=== PATIENT | female | born 1940 | race Caucasian/White ===

== ENCOUNTER 2016-03-08 08:35 | Emergency (ER) | payer MEDICARE ==
[2016-03-08 09:20] VITALS: BP 134/32
--- NOTE | 2016-03-08 09:23 | RAD ---
INDICATION: LEFT wrist pain since this morning without proceeding injury. COMPARISON: None. TECHNIQUE: AP, lateral, and oblique views LEFT wrist. REPORT: Negative for fracture. Moderate scapholunate interval diastases most consistent with age indeterminate scapholunate ligament tear. Polyarticular osteoarthritis with including at the trapezium triquetral, scaphoid trapezium, and trapezium first metacarpal articulations moderate in severity. Osteoarthritis also evident at the first metacarpal phalangeal and interphalangeal joints. Vascular calcifications. Nonfocal soft tissue swelling. IMPRESSION: 1. Negative for fracture. 2. 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 3. Polyarticular Osteoarthritis.
[2016-03-08] MEDS ORDERED: HYDROcodone/ACETAMIN 5-325 MG* 1 TAB PO ONE (09:43)
--- NOTE | 2016-03-08 09:51 | UC ---
Hand/Wrist HPI - HPI Summary HPI Summary: left wrist pain x 3 days pain is sever , + swelling, limited ROM no know injury , but ? injury as she was playing with her dog - History Of Current Complaint Chief Complaint: UCUpperExtremity Stated Complaint: LEFT WRIST PAIN Time Seen by Provider: 03/08/16 08:52 Hx Obtained From: Patient, Family/Gaming Cashier Onset/Duration: Sudden Onset, Lasting Days - 3, Still Present Severity Initially: Moderate Severity Currently: Severe Character Of Pain: Aching Aggravating Factor(s): Movement, Lifting, Flexion, Extension Alleviating: Nothing Associated Signs And Symptoms: Positive: Swelling, Weakness. Negative: Redness , Bruising - Allergies/Home Medications Allergies/Adverse Reactions: Allergies Allergy/AdvReac Type Severity Reaction Status Date / Time No Known Allergies Allergy Verified 03/08/16 09:11 Home Medications: Home Medications Allopurinol TAB* [Zyloprim TAB*] 300 mg PO DAILY 03/08/16 [History Confirmed ] Amlodipine Besylate [Norvasc-] 5 mg PO DAILY 03/08/16 [History Confirmed ] Apixaban* [Eliquis*] 5 mg PO BID 03/08/16 [History Confirmed 03/08/16] Aspirin [Aspirin Dr] 81 mg PO DAILY 03/08/16 [History Confirmed 03/08/16] Atorvastatin* [Lipitor*] 40 mg PO DAILY 03/08/16 [History Confirmed 03/08/16] Hydroxyurea CAP* [Hydrea CAP*] 500 mg PO TID 03/08/16 [History Confirmed ] Levothyroxine TAB* [Synthroid TAB*] 150 mcg PO DAILY 03/08/16 [History Confirmed 03/08/16] Lisinopril [Zestril 10 MG-] 10 mg PO DAILY 03/08/16 [History Confirmed 03/08/16] Metoprolol Succinate [Toprol Xl] 12.5 mg PO DAILY 03/08/16 [History Confirmed ] PARoxetine HCL TAB* [Paxil TAB*] 40 mg PO DAILY 03/08/16 [History Confirmed ] busPIRone TAB* [Buspar TAB*] 5 mg PO TID 03/08/16 [History Confirmed 01/31/17] PMH/Surg Hx/FS Hx/Imm Hx Cardiovascular History Of: Reports: Cardiac Disorders - aortic stenosis, Hypertension - Surgical History Surgical History: Yes Surgery Procedure, Year, and Place: hip replacement-right at [facility] - Family History Known Family History: Negative: Diabetes - Social History Alcohol Use: None Substance Use Type: None Smoking Status (MU): Former Smoker Review of Systems Constitutional: Negative Skin: Negative Eyes: Negative ENT: Negative Respiratory: Negative Cardiovascular: Negative Musculoskeletal: Arthralgia - left wrist All Other Systems Reviewed And Are Negative: Yes Physical Exam Triage Information Reviewed: Yes Appearance: Pain Distress, Thin Vital Signs: Initial Vital Signs Temp 98.9 F 03/08/16 08:39 Pulse 64 03/08/16 08:39 Resp 30 03/08/16 08:39 BP 134/32 03/08/16 08:39 Vital Signs Reviewed: Yes Eyes: Positive: Conjunctiva Clear ENT: Positive: Normal ENT inspection, Hearing grossly normal, Pharynx normal Neck exam: Normal Respiratory: Positive: Chest non-tender, Lungs clear, Normal breath sounds Cardiovascular: Positive: RRR, No Murmur, Pulses Normal Musculoskeletal: Positive: Strength Limited @ - left wrist, ROM Limited @ - left wrist, Other: - left wrist : + swelling, mid wrist, + tenderness, limited ROM on flexion and extesion and supination Diagnostics - Laboratory Diagnostic Studies Completed/Ordered: REPORT left wrist xray : Negative for fracture. Moderate scapholunate interval diastases most consistent. with age indeterminate scapholunate ligament tear. Polyarticular osteoarthritis with. including at the trapezium triquetral, scaphoid trapezium, and trapezium first metacarpal. articulations moderate in severity. Osteoarthritis also evident at the first metacarpal. phalangeal and interphalangeal joints. Vascular calcifications. Nonfocal soft tissue. swelling. IMPRESSION: 1. Negative for fracture. 2. 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 3. Polyarticular Osteoarthritis. Hand/Wrist Course/Dx - Differential Dx/Diagnosis Provider Diagnoses: left wrist strain Discharge - Discharge Plan Condition: Stable Disposition: HOME Prescriptions: HYDROcodone/ACETAMIN 5-325 MG* [[place] 5-325 TAB*] 1 tab PO Q6H PRN #15 tab MDD 4 TABS DAILY PRN Reason: Pain Patient Education Materials: Wrist Injury (ED), Arthralgia (ED) Referrals: Rosalee Plunkett MD [Primary Care Provider] - Additional Instructions: xray REPORT: Negative for fracture. Moderate scapholunate interval diastases most consistent with age indeterminate scapholunate ligament tear. Polyarticular osteoarthritis with including at the trapezium triquetral, scaphoid trapezium, and trapezium first metacarpal articulations moderate in severity. Osteoarthritis also evident at the first metacarpal phalangeal and interphalangeal joints. Vascular calcifications. Nonfocal soft tissue swelling. IMPRESSION: 1. Negative for fracture. 2. 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 3. Polyarticular Osteoarthritis. cont. with rest, ice, wrist splint, hydrocodon as needed for pain referral to ortho in 2 days
== END 2016-03-08 10:04 | disposition home or self-care (01) ==
LOC: UCCORT 08:35
DX: S63.502A Unspecified sprain of left wrist, initial encounter (principal); I10 Essential (primary) hypertension; M19.042 Primary osteoarthritis, left hand; Z96.641 Presence of right artificial hip joint; Z87.891 Personal history of nicotine dependence; X58.XXXA Exposure to other specified factors, initial encounter; Y92.9 Unspecified place or not applicable; Z79.82 Long term (current) use of aspirin
CPT/HCPCS: 99213; G0463

== ENCOUNTER 2016-12-07 17:59 | Inpatient (IN) | payer MEDICARE ==
--- NOTE | 2016-12-07 19:53 | RAD ---
HISTORY: Shortness of breath COMPARISONS: None VIEWS: 4: Frontal dual-energy and lateral views of the chest. FINDINGS: CARDIOMEDIASTINAL SILHOUETTE: The cardiac silhouette is enlarged. The cardiomediastinal silhouette is otherwise normal. Annular calcifications are noted. A metallic stent is noted. ARACELY: The aracely are normal. PLEURA: The costophrenic angles are sharp. No pleural abnormalities are noted. LUNG PARENCHYMA: There is diffuse confluent alveolar opacification of the right lung field with patchy alveolar opacification of the left lung base. ABDOMEN: The upper abdomen is clear. There is no subphrenic gas. BONES AND SOFT TISSUES: No bone or soft tissue abnormalities are noted. OTHER: None. IMPRESSION: DIFFUSE MULTIFOCAL AIRSPACE DISEASE, GREATER ON THE RIGHT THAN ON THE LEFT. CARDIOMEGALY
[2016-12-07 20:06] LABS: Hematocrit 22 % (35-47); Hemoglobin 7.1 g/dl (12.0-16.0); Mean Corpuscular HGB Conc 32 g/dl (31-36); Mean Corpuscular Hemoglobin 28 pg (27-31); Mean Corpuscular Volume 89 fL (80-97); Mean Platelet Volume 8 um3 (7.4-10.4); Red Blood Count 2.52 10^6/ul (4.0-5.4); Red Cell Distribution Width 20 % (10.5-15); White Blood Count 19.3 10^3/ul (3.5-10.8)
[2016-12-07 20:21] LABS: Albumin 3.8 g/dL (3.2-5.2); BUN/Creatinine Ratio 29.9 (8-20); Calcium 9.5 mg/dL (8.6-10.3); EGFR African American 52.3 (>60); EGFR Non-African American 40.7 (>60); Globulin 3.3 g/dL (2-4); Potassium 3.7 mmol/L (3.5-5.0); Total Bilirubin 1.1 mg/dL (0.2-1.0); Total Protein 7.1 g/dL (6.4-8.9)
[2016-12-07] MEDS ORDERED: Furosemide IV* 10 MG/ML 2 ML VIAL (20 MG) IV SLOW PU ONE (20:54)
[2016-12-07] MEDS ORDERED: Furosemide IV* 10 MG/ML VIAL (40 MG) ONE (21:43)
[2016-12-07] MEDS ORDERED: Furosemide IV* 10 MG/ML VIAL (40 MG) IV SLOW PU ONE (21:45)
[2016-12-07 22:12] LABS: Troponin I 0.39 ng/mL (<0.04)
[2016-12-07] MEDS ORDERED: RUXOLITINIB 15 MG PO SCH (23:00)
--- NOTE | 2016-12-08 00:58 | HP ---
CC: Dr. Plunkett; Dr. Willian Betancourt HISTORY AND PHYSICAL: DATE OF ADMISSION: 12/07/16 PRIMARY CARE PHYSICIAN: Dr. Plunkett. CHIEF COMPLAINT: Shortness of breath. HISTORY OF PRESENT ILLNESS: Ms. Dunn is a 76-year-old female with a past medical history of hypertension, cognitive impairment, CVA, myeloproliferative disease followed by Dr. Betancourt, aortic stenosis status post aortic valve replacement in September 2016, unclear whether this is a mechanical or animal valve and osteoarthritis, who presents to the hospital with shortness of breath. History is mostly obtained from the daughter. The patient suffers from some underlying cognitive impairment and defers most questions to her daughter who is present and lives with her. The daughter states that she woke up this morning around 7 a.m. and the patient had said she had been up all night with hip pain. She states she gets this occasionally. The patient did not want to move and the daughter initially was going to call EMS; however, the patient refused. She had some Tylenol and some ice on her hip and went back to sleep. When she woke up a few hours later, the pain had resolved. She got up to go to get breakfast and she stated that she was having a lot of shortness of breath with exertion. She was feeling very fatigued. She laid down and went back to sleep for a few hours. When she woke up, apparently the shortness of breath was even worse. She said she had some mild back pain with inspiration. Daughter states that shortness of breath is new for her. She had some symptoms like this prior to her aortic valve replacement, but since then has been doing very well. Yesterday, she had no issues at all. She has had no recent fever, chills, cough, dysuria, nausea, vomiting, has been having good p.o. intake. The patient is on Jakafi for her myeloproliferative disorder and follows with Dr. Betancourt and her sheet metal mechanic she states is Dr. Jeff Zambrano. PAST MEDICAL HISTORY: Hypertension, aortic valve replacement in September 2016 at [facility], CVA with subsequent cognitive impairment, myeloproliferative disorder, on Jakafi, and osteoarthritis. PAST SURGICAL HISTORY: Right total hip replacement, aortic valve replacement, and back surgery. HOME MEDICATIONS: 1. Jakafi 15 mg by mouth 2 times daily. 2. Synthroid 150 mcg by mouth daily. 3. Atorvastatin 40 mg by mouth daily. 4. Aspirin 81 mg by mouth daily. 5. Apixaban 5 mg by mouth 3 times daily. 6. Norvasc 5 mg by mouth daily. 7. Allopurinol 300 mg by mouth daily. 8. Lisinopril 5 mg by mouth daily. 9. Paroxetine 30 mg by mouth daily. 10. Metoprolol succinate 12.5 mg by mouth daily. 11. Buspirone 5 mg by mouth 3 times daily. ALLERGIES: The patient has no known drug allergies. FAMILY HISTORY: Significant for mother with arthritis. SOCIAL HISTORY: The patient has distant tobacco use. No alcohol or illicit drug use. REVIEW OF SYSTEMS: A 12-point review of systems is negative except for that as noted in the HPI. PHYSICAL EXAMINATION GENERAL: The patient is an elderly female, lying in bed, in no apparent distress. VITAL SIGNS: On admission, temperature 98.9, heart rate of 64, respiratory rate of 22, O2 saturation 82% on room air, blood pressure 118/43. HEENT: Head: Normocephalic, atraumatic. Eyes: Pupils equal, round, and reactive to light and accommodation. Anicteric sclerae. ENT: Moist mucous membranes. No cervical adenopathy. LUNGS: Chest with coarse rales in bilateral lower lung fu. CARDIOVASCULAR: Regular rate and rhythm. S1 and S2 present. Systolic ejection murmur. I did not appreciate a diastolic murmur. I could not appreciate a mechanical S2. ABDOMEN: Soft, nontender, nondistended. Bowel sounds positive. EXTREMITIES: No cyanosis, clubbing or edema in the lower extremities. NEURO: The patient is alert and oriented. No focal neurological deficits. LABS AND DIAGNOSTICS: White blood cell count of 19.3, hemoglobin of 7.1, hematocrit of 22, platelets of 601. Sodium 132, potassium 3.7, chloride of 105 , carbon dioxide of 21, BUN of 38, creatinine of 1.27, glucose of 115, lactic acid of 1.4. Total bilirubin of 1.1, AST of 48, ALT of 14, alkaline phosphatase of 55. Troponin of 0.39. B-natriuretic peptide of 693. EKG personal review shows normal sinus rhythm, some mild LVH. Chest x-ray personal review shows diffuse multifocal airspace disease right greater than left. ASSESSMENT AND PLAN: Acute congestive heart failure exacerbation in a 76-year- old female with a past medical history of hypertension, aortic valve replacement , cerebrovascular accident, myeloproliferative disorder, osteoarthritis. 1. Acute congestive heart failure exacerbation. The patient seems fluid overloaded on exam and by labs and imaging. She has no history of congestive heart failure as far as I am aware of. We do not have any old echocardiograms here. Her BNP and troponin are both elevated. We will dose one time of 40 mg of IV Lasix in the emergency department, track her urine output. Will order an echocardiogram for tomorrow. Talked with Cardiology as well to consult in the AM. Continue her home beta-rigoberto and antihypertensive medications. We will try to track down an old echocardiogram from [facility] Carrasco, which her daughter states she has had since the valve was replaced. Strict I's and O's. 2. Anemia. The patient's hemoglobin is 7.1. This is lower than it has been in the past. The patient has a troponin elevation. I am going to opt to give her a unit of blood despite her fluid overload at this time. I can give additional Lasix after if she needs it. We will check a stool guaiac as well as the patient is on Eliquis. 3. Hypertension. Continue metoprolol, lisinopril, and Norvasc. 4. Myeloproliferative disorder. Platelets and white blood cells are elevated. White blood cell seemed to be may be slightly higher than her baseline. As noted above, we will just hold the patient's Jakafi for now. Oncology can determine if and when to restart this. 5. Hypothyroidism. Continue home Synthroid. 6. DVT prophylaxis. Eliquis. 7. Code status. The patient is a full code. TIME SPENT: Total time spent on this admission 50 minutes with over half the time spent [id number] with the patient in counseling and coordinating care. [id number]/CPS #: [id number] DENISE
[2016-12-08] MEDS: Apixaban* 5 MG TAB PO SCH ×3 (01:34→20:16)
[2016-12-08 05:52] LABS: Hematocrit 22 % (35-47); Hemoglobin 7.3 g/dl (12.0-16.0); Mean Corpuscular HGB Conc 33 g/dl (31-36); Mean Corpuscular Hemoglobin 29 pg (27-31); Mean Corpuscular Volume 87 fL (80-97); Mean Platelet Volume 8 um3 (7.4-10.4); Red Blood Count 2.51 10^6/ul (4.0-5.4); Red Cell Distribution Width 19 % (10.5-15); White Blood Count 13.7 10^3/ul (3.5-10.8)
[2016-12-08] MEDS: Levothyroxine TAB* 150 MCG TAB PO SCH (06:02)
[2016-12-08 06:09] LABS: BUN/Creatinine Ratio 26.1 (8-20); EGFR African American 49.2 (>60); EGFR Non-African American 38.3 (>60); Potassium 3.7 mmol/L (3.5-5.0)
[2016-12-08 06:18] LABS: Troponin I 0.54 ng/mL (<0.04)
[2016-12-08] MEDS ORDERED: amLODIPine TAB* 5 MG PO SCH (09:00)
[2016-12-08] MEDS ORDERED: Lisinopril TAB* 10 MG PO SCH (09:00)
--- NOTE | 2016-12-08 10:11 | ECHO ---
Patient: CARSON JACKSON Rec#: [id number] : 1940 Date: 12/08/2016 Age: 76y Height: 170.18 cm / 67.0 in Weight: 78.92 kg / 173.9 lbs Sex: F BSA: 1.91 Room#: 439 Admit Date#: 12/07/2016 Type: Inpatient Referring: JENNIFER WEAVER MD Reading: Shun Henry MD Oral Hygienist: Michelle KirkRDCS,RDMS CC: Rosalee Plunkett MD Transthoracic Echocardiogram Indication: CHF BP: 105/32 HR: 69 Rhythm: NSR Findings History: , AVR, CVA, myeloproliferative disease, HTN, murmur Technical Comments: The study quality is good. Completed 0845 Left Ventricle: The left ventricular chamber size is normal. Moderate concentric left ventricular hypertrophy is observed. There is increased basal septal hypertrophy noted without evidence of an increased gradient across the left ventricular outflow tract. Global left ventricular wall motion and contractility are within normal limits. The left ventricle appears hyperdynamic. The estimated ejection fraction is greater than 65%. Abnormal left ventricular diastolic function is observed. The left ventricular diastolic filling pattern is consistent with pseudonormalization. Left Atrium: The left atrium is severely dilated. Right Ventricle: The right ventricular chamber size and systolic function are within normal limits. Right Atrium: The right atrium is mildly dilated. Aortic Valve: There is mild aortic regurgitation. seems to be paravalvular. The mean gradient of the aortic valve is 37 mmHg. The aortic valve area, by peak velocities, is calculated at 1.2 cm2. The highest aortic valve velocity was obtained with the standard probe from the A5C view. A bio-prosthetic aortic valve is present. There are increased velocities across the LVOT and aortic valve and an increased mean gradient across the AV c/w the hyperdynamic state and anemia. The AV AccT of 72 ms is c/w normal prosthetic valve function. There is a paravalvular leak of the bio-prosthetic aortic valve. Mitral Valve: Severe mitral annular calcification present.which seems to restrict the mobility of the leaflets. The mitral valve leaflets are mildly thickened. There is mild to moderate mitral regurgitation. There is moderate mitral stenosis. Tricuspid Valve: The tricuspid valve leaflets are normal. There is trace to mild tricuspid regurgitation. No pulmonary hypertension is noted. Pulmonic Valve: The pulmonic valve appears normal. There is a trace pulmonic regurgitation. Pericardium: There is no significant pericardial effusion. Aorta: The aortic root appears normal. There is no dilatation of the aortic arch. Pulmonary Artery: The main pulmonary artery appears normal. Venous: The inferior vena cava appears normal in size. There is a greater than 50% respiratory change in the inferior vena cava dimension. Summary: There was not any prior study for comparison. Conclusions Moderate concentric left ventricular hypertrophy is observed. The left ventricle appears hyperdynamic. The estimated ejection fraction is greater than 65%. The left ventricular diastolic filling pattern is consistent with pseudonormalization. The left atrium is severely dilated. The right atrium is mildly dilated. A bio-prosthetic aortic valve is present. There are increased velocities across the LVOT and aortic valve and an increased mean gradient across the AV c/w the hyperdynamic state and anemia. The AV AccT of 72 ms is c/w normal prosthetic valve function. There is a paravalvular leak of the bio-prosthetic aortic valve. Severe mitral annular calcification present.which seems to restrict the mobility of the leaflets. There is mild to moderate mitral regurgitation. There is moderate mitral stenosis. There is trace to mild tricuspid regurgitation. Measurements Name Value Normal Range RVIDd (AP) 2D 2.9 cm (0.9 - 2.6) RVDdMajor (2D) 3.1 cm (2.2 - 4.4) RAd ISD 4CH 5.8 cm (3.4 - 4.9) RA (A4C)W 3.5 cm (2.9 - 4.6) IVSd (2D) 1.6 cm (0.6 - 1) LVPWd (2D) 1.6 cm (0.6 - 1) LVIDd (2D) 4.4 cm (3.6 - 5.4) LVIDs (2D) 2.6 cm - LV FS (2D) 41 % (25 - 45) Aortic Annulus 2 cm (1.4 - 2.6) Ao root diameter (2D) 3.1 cm (2.1 - 3.5) Ascending Ao 3.2 cm (2.1 - 3.4) Aortic arch 2.5 cm (1.8 - 3.4) LA dimension (AP) 2D 4.8 cm (2.3 - 3.8) LAd ISD 4CH 6.9 cm (2.9 - 5.3) LA ISD 4CH W 5.8 cm (2.5 - 4.5) Name Value Normal Range LA ESV SP 4CH (A/L) 166.48 ml - LA ESV SP 2CH (A/L) 132.26 ml - LA ESV BP (A/L) 151.2 ml - LA ESV BP (A/L) index 79 ml/m2 - LA ESV SP 4CH (MOD) 155.41 ml - LA ESV SP 2CH (MOD) 123.69 ml - Name Value Normal Range MV E-wave Vmax 2 m/sec - MV deceleration time 337 msec - MV A-wave Vmax 1.2 m/sec - MV E:A ratio 1.7 ratio - LV lateral e' Vmax 0.06 m/sec - LV E:e' lateral ratio 33.4 ratio - Name Value Normal Range AV Vmax 3.9 m/sec - AV VTI 93 cm - AV peak gradient 61 mmHg - AV mean gradient 37 mmHg - LVOT diameter 1.9 cm - LVOT Vmax 1.7 m/sec - LVOT VTI 41.7 cm - LVOT peak gradient 12 mmHg - LVOT mean gradient 6.8 mmHg - SV LVOT 111.28 ml - SPENCER (continuity Vmax) 1.2 cm2 - SPENCER (continuity VTI) 1.3 cm2 - Name Value Normal Range MV Vmax 2 m/sec - MV VTI 74.5 cm - MV peak gradient 16 mmHg - MV mean gradient 6.8 mmHg - MV PHT 132 msec - MVA (PHT) 1.7 cm2 - MVA (continuity VTI) 1.7 cm2 - Name Value Normal Range TR Vmax 2.2 m/sec - TR peak gradient 19 mmHg - RAP 3 mmHg - RVSP 22 mmHg - IVC diameter 1.9 cm - Name Value Normal Range PV Vmax 1 m/sec - PV peak gradient 4 mmHg -
[2016-12-08] MEDS ORDERED: Furosemide IV* 10 MG/ML VIAL (40 MG) IV ONE (10:47)
[2016-12-08] MEDS: Metoprolol Succinate XL TAB* 25 MG PO SCH (10:56)
[2016-12-08] MEDS: PARoxetine HCL TAB* 10 MG PO SCH (10:57)
[2016-12-08] MEDS: Atorvastatin* 40 MG TAB PO SCH (10:59)
[2016-12-08] MEDS: Aspirin EC Low Dose* 81 MG TAB.EC PO SCH (10:59)
[2016-12-08] MEDS: Allopurinol TAB* 300 MG PO SCH (11:00)
[2016-12-08] MEDS: busPIRone TAB* 5 MG PO SCH ×2 (11:01→20:17)
[2016-12-08] MEDS ORDERED: Azithromycin IV(*) 500 MG in NS 0.9% 250 ML* 250 ML IVPB SCH (11:30)
[2016-12-08] MEDS ORDERED: Potassium Chloride LIQUID* 20 MEQ PACKET PO ONE (11:30)
[2016-12-08] MEDS: cefTRIAXone VIAL(*) 1,000 MG in NS 0.9% 50 ML* 50 ML IVPB SCH (11:54)
--- NOTE | 2016-12-08 13:20 | PN ---
Subjective Date of Service: 12/08/16 Interval History: Ms. Dunn states that she is feeling relatively well. She does feel that her breathing is a bit labored. She denies other complaint including chest pain, nausea, or abdominal pain. Objective Active Medications: Acetaminophen (Tylenol Tab*) 650 mg PO Q4H PRN Allopurinol (Zyloprim Tab*) 300 mg PO DAILY MELONY Apixaban (Eliquis*) 5 mg PO BID MELONY Aspirin (Aspirin Ec Low Dose*) 81 mg PO DAILY MELONY Atorvastatin Calcium (Lipitor*) 40 mg PO DAILY MELONY Buspirone HCl (Buspar Tab*) 5 mg PO TID MELONY Ceftriaxone Sodium 1,000 mg/ (Sodium Chloride) 50 mls @ 200 mls/hr IVPB Q24H MELONY Azithromycin 500 mg/ Sodium (Chloride) 250 mls @ 250 mls/hr IVPB Q24H MELONY Levothyroxine Sodium (Synthroid Tab*) 150 mcg PO DAILY@0600 MELONY Metoprolol Succinate (Toprol Xl Tab*) 12.5 mg PO DAILY MELONY Paroxetine HCl (Paxil Tab*) 30 mg PO DAILY [facility] Vital Signs: Temp Pulse Resp BP Pulse Ox 98 F 60 30 128/58 93 12/08/16 08:34 12/08/16 08:34 12/08/16 08:34 12/08/16 08:34 12/08/16 08:34 Oxygen Devices in Use Now: Nasal Cannula Appearance: Female lying in bed in NAD Eyes: No Scleral Icterus Ears/Nose/Mouth/Throat: Mucous Membranes Moist Neck: Trachea Midline Respiratory: Symmetrical Chest Expansion and Respiratory Effort, Clear to Auscultation Cardiovascular: NL Sounds; No Murmurs; No JVD, No Edema Abdominal: NL Sounds; No Tenderness; No Distention Lymphatic: No Cervical Adenopathy Extremities: No Edema Skin: No Rash or Ulcers Neurological: Alert and Oriented x 3, NL Muscle Strength and Tone Result Diagrams: 12/08/16 05:28 12/08/16 05:28 Assess/Plan/Problems-Billing Assessment: Ms. Dunn is a 76 yo female with a PMH of CVA with cognitive impairment, myeloproliferative disorder follow by Dr. Betancourt, and aortic valve replacement 2016 who was admitted on 12/07/16 with SOB with concern for CHF, anemia, and possible pneumonia. - Patient Problems (1) CHF (congestive heart failure) Comment: - Appreciate cards consult. - Echo shows hyperdynamic small LV, suspect heart function impaired with tachycardia due to anemia. Aortic valve functioning appropriately. - Plan for lasix with 2 units PRBC now. (2) H/O aortic valve replacement Comment: - Appreciate cards consult. - Echo confirms that valve is functioning properly. (3) Anemia Comment: - New worsening anemia. - Dr. Betancourt consulted. Stool occult blood pending. No overt evidence of bleeding. - Plan for 2 units PRBC now. (4) Pneumonia Comment: - Patient with SOB, leukocytosis and concern for patchy airspace disease on cxray. Though she has had leukocytosis in the past with hx of myeloproliferative disorder, given constellation of symptoms, plan to treat for pneumonia with ceftriaxone and azithromycin. - Procalcitonin 1.0, CRP pending. Check strep pneumo and legionella urine antigens. (5) Myeloproliferative disorder Comment: - Plan for Hematology consult. (6) CVA (cerebral vascular accident) Comment: - With cognitive impairment. Continue supportive care. (7) DVT prophylaxis Comment: - SCDs with anemia. (8) Full code status Status and Disposition: Switch from OBV to inpatient. Anticipate discharge to home when medically stable.
[2016-12-08 13:26] LABS: Comments Flag Yes; Corrected Retic Count 2.1 % (0.5-1.5); Immature Retic Fraction 0.61
[2016-12-08 13:51] LABS: C Reactive Protein 112.73 mg/L (< 5.00)
[2016-12-08 13:53] LABS: Iron 50 ug/dL (50-212); Total Iron Binding Capacity 293 mcg/dL (250-450); Transferrin 209 mg/dL (203-362)
[2016-12-08 14:14] LABS: Ferritin > 1500.0 ng/mL (11-307)
--- NOTE | 2016-12-08 14:37 | CONS ---
CC: Dr. Plunkett; Dr. Amadeo Aguilar; Dr. Betancourt; Dr. Henry CARDIOLOGY CONSULTATION REPORT: DATE OF CONSULT: 12/08/16 REASON FOR EVALUATION: Heart failure, troponin elevation. HISTORY OF PRESENT ILLNESS: History was obtained from the chart and Dr. Aguilar and Jelena Kong NP. The patient is a poor historian due to memory impairment. The patient was seen with her daughter at the bedside, maria isabel Porras, history was obtained from her as well. This is a very pleasant 76-year- old woman, who has a history of paroxysmal atrial flutter, CVA, myeloproliferative disorder, hypertension, [id number] mitral stenosis, aortic stenosis, status post TAVR in September of 2016 at [facility], who is also limited by musculoskeletal issues including arthritis of the knees and right hip discomfort, status post right hip replacement. After the TAVR, she was able to go to live with her daughter, has been walking from her bedroom to the bathroom and kitchen without shortness of breath and actually had improved somewhat. Over the last couple of days, she has been more short of breath. Daughter saw her yesterday and said that the patient reported she had a bad night and was more short of breath and had pain in her hip. The patient received some Tylenol and rested for a while and then had relief of her pain and seemed somewhat less short of breath. She got up to move around and was severely short of breath with exertion in the house and was brought to the emergency room. She denies fevers, chills, or sweats. She did have a cough with some red-tinged sputum yesterday. No diarrhea, no dysuria. She denies any nausea, vomiting, or weight loss. She was found to be more severely anemic and was transfused a unit of blood last night; however, she remains anemic today. She also had an elevated BNP at 693 yesterday and some elevated troponins of 0.47, 0.52, 0.54, and 0.57. She denies orthopnea, but gets short of breath with minimal exertion. PAST MEDICAL HISTORY: Includes aortic stenosis, status post TAVR in September of 2016. According to Dr. Aguilar, she had some elevated gradient across the valve at 3.2 m/sec, which was detected in October and what was considered mild -to- moderate MS. She also has a history of hospitalization in November of 2015 in [place] for atrial flutter and CVA and non-ST elevation GA. She was started on anticoagulation at that time. She has a history of hypertension. She has mild cognitive dysfunction and memory impairment after her CVA, myeloproliferative disorder, systolic and diastolic heart failure, and anemia. She has a history of tobacco use, discontinued 4 years ago. Denies asthma or emphysema. PAST SURGICAL HISTORY: Includes right hip replacement approximately 10 years ago. MEDICATIONS: As an outpatient include: 1. Jakafi 15 mg b.i.d. 2. Synthroid 150 mcg a day. 3. Atorvastatin 40 mg a day. 4. Aspirin 81 mg a day. 5. Apixaban 5 mg b.i.d. 6. Amlodipine 5 mg daily. 7. Allopurinol 300 mg a day. 8. Lisinopril 5 mg a day. 9. Paroxetine 30 mg a day. 10. Metoprolol succinate 12.5 mg a day. 11. BuSpar 5 mg t.i.d. As an inpatient, she is on those medications plus: 1. Azithromycin 500 mg q.24. 2. Ceftriaxone 1000 mg q.24. ALLERGIES: She has no known drug allergies. SOCIAL HISTORY: She is . Lives with her daughter. She has 3 children. 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 She denies current tobacco use or alcohol use. She has occasional coffee and about 1 cola a day. REVIEW OF SYSTEMS: Review of systems x12 was negative except as above. PHYSICAL EXAM: She is a well-developed, overweight female, in no apparent distress. Blood pressure 128/58, temperature 98, pulse of 60, O2 sat 93% on 3 L nasal cannula. Weighs 183 pounds. Negative 588 on I's and O's compared to yesterday. JVD of approximately 14 cm with hepatojugular reflux. Carotids 2+. No cervical adenopathy or thyromegaly. Cardiac Exam: S1, S2 with a 3/6 systolic ejection murmur at the base radiating across the precordium. Chest: Rales about a third of the way up bilaterally. Abdomen: Bowel sounds present, nontender. Femoral pulses intact without bruits. Distal pulses diminished but present. No significant edema. Motor strength 5/5 bilaterally except for the right lower extremity. She was kind of restricted because of hip discomfort on the right side. oriented to month and year. DIAGNOSTIC STUDIES/LAB DATA: Include sodium 134, potassium of 3.7, BUN of 35, creatinine of 1.34. White count of 13.7 down from 19 yesterday; hemoglobin of 7.3, up from 7.1 yesterday; platelet count of 488; MCV of 87. EKG: Sinus rhythm at 60 with first-degree AV block and minor nonspecific ST changes. No previous for comparison. Chest x-ray report revealed diffuse multifocal airspace disease greater on the right than the left, cardiomegaly. Echocardiogram was performed today, which revealed moderate concentric LVH with basal thickening, no evidence of outflow tract obstruction, hyperdynamic LV function greater than 65, mild increase in LVOT velocity of 1.7, reason possibility of potential from mild dynamic outflow tract obstruction. There is increased velocity across the aortic valve and the LVOT consistent with hyperdynamic state and anemia. The AV acceleration time is 72 milliseconds, which was consistent with normal prosthetic valve function that was paravalvular leak of the bioprosthetic aortic valve. There was severe mitral annular calcification compromised with leaflet excursion. There was mild-to- moderate MR and moderate mitral stenosis with a mean gradient of 6.8. There is [id number] TR, trace PI, and the peak velocity across the aortic valve was 3.9 m/sec with mean gradient at [address] Aguilar. The peak velocity was 3.2 m/sec with mean gradient at 22 back in October. IMPRESSION AND PLAN: My impression is that Ms. Dunn is a medically complicated woman, who has moderate valvular disease, severe anemia, hypertension, mild increase in her outflow tract, and congestive heart failure, probably on the basis of high-output failure, anemia, and systolic and diastolic dysfunction. She also has a history of paroxysmal atrial arrhythmias and cerebrovascular accident. I suspect that the severe anemia has compromised her with high-output failure and increased gradients across the mitral and aortic valves. For the time being, I recommend the following as discussed with Jelena Kong NP. Recommended gentle diuresis. We try to transfuse her to increase her RBCs and oxygen carrying capacity. Would avoid after load-reducing agents and hold her amlodipine and lisinopril for now. We would cautiously continue her metoprolol and consider advancing it as needed to control her blood pressure watching for bradycardia. Would continue anticoagulation unless there is a contraindication due to bleeding. She is at high risk for recurrent cardioembolic events given her high CHAD2- VASc score, history of cerebrovascular accident and history of atrial flutter. Would consider treating for pulmonary infection given the chest x-ray appearance. Would avoid excessive dehydration when she is euvolemic given the potential for hyperdynamic outflow tract obstruction. She has mild elevation in troponins, probably due to demand in the setting of severe anemia. Dr. Aguilar reports that she had no significant obstructive coronary disease on previous evaluation earlier this year prior to transcatheter aortic valve replacement. We will try to maintain her potassium over 4 to decrease likelihood of recurrent atrial arrhythmias. If she does have recurrent atrial arrhythmias, would consider possibility of adding an antiarrhythmic, perhaps amiodarone. Would avoid caffeine. Would consider consulting with Dr. Betancourt for the management of her anemia and myeloproliferative disorder. We will check TSH given her bradycardia and tendency towards atrial arrhythmias. [id number]/[facility] #: [id number] discussed with Dr. Betancourt, Dr. Nathan, and Jelena Kong. [facility] 12[facility]08.16 [facility]
--- NOTE | 2016-12-08 19:13 | PN ---
Progress Note - Progress Note Date of Service: 12/08/16 Note: Primary nurse called regarding patient complaint of chest pain. Patient assessed and states that she does have mild chest discomfort. She reports that her breathing feels labored. She does not feel short of breath and her lungs are CTAB. Plan to check EKG, chest xray, and troponins.
--- NOTE | 2016-12-08 19:25 | RAD ---
HISTORY: Chest pain, shortness of breath COMPARISONS: December 07, 2016 VIEWS: 1: frontal portable view of the chest at 7:07 PM FINDINGS: LINES AND TUBES: None. CARDIOMEDIASTINAL SILHOUETTE: The cardiac silhouette is enlarged. The cardiomediastinal silhouette is otherwise normal for portable technique. A stent is noted overlying the heart. PLEURA: The costophrenic angles are sharp. No pleural abnormalities are noted. LUNG PARENCHYMA: There is persistent patchy alveolar opacification throughout the right lung and to lesser extent of the left lower lung ABDOMEN: The upper abdomen is clear. There is no subphrenic gas. BONES AND SOFT TISSUES: No bone or soft tissue abnormalities are noted. IMPRESSION: PERSISTENT, RIGHT GREATER THAN LEFT MULTIFOCAL AIRSPACE DISEASE. CARDIOMEGALY
[2016-12-08] MEDS: Acetaminophen TAB* 325 MG PO PRN (20:15)
[2016-12-08] MEDS: Azithromycin IV(*) 500 MG in NS 0.9% 250 ML* 250 ML IVPB SCH (21:40)
[2016-12-09] MEDS: Levothyroxine TAB* 150 MCG TAB PO SCH (05:16)
[2016-12-09 05:35] LABS: Comments Flag Yes; Hematocrit 24 % (35-47); Hemoglobin 7.9 g/dl (12.0-16.0); Mean Corpuscular HGB Conc 33 g/dl (31-36); Mean Corpuscular Hemoglobin 29 pg (27-31); Mean Corpuscular Volume 87 fL (80-97); Mean Platelet Volume 8 um3 (7.4-10.4); Red Blood Count 2.76 10^6/ul (4.0-5.4); Red Cell Distribution Width 18 % (10.5-15); White Blood Count 14.8 10^3/ul (3.5-10.8)
[2016-12-09 06:10] LABS: Troponin I 0.45 ng/mL (<0.04)
[2016-12-09] MEDS: busPIRone TAB* 5 MG PO SCH ×3 (07:32→18:08)
[2016-12-09] MEDS: PARoxetine HCL TAB* 10 MG PO SCH (08:36)
[2016-12-09] MEDS: Allopurinol TAB* 300 MG PO SCH (08:37)
[2016-12-09] MEDS: Atorvastatin* 40 MG TAB PO SCH (08:37)
[2016-12-09] MEDS: Aspirin EC Low Dose* 81 MG TAB.EC PO SCH (08:37)
[2016-12-09] MEDS: Metoprolol Succinate XL TAB* 25 MG PO SCH (08:37)
[2016-12-09] MEDS: Apixaban* 5 MG TAB PO SCH (08:42)
[2016-12-09] MEDS: cefTRIAXone VIAL(*) 1,000 MG in NS 0.9% 50 ML* 50 ML IVPB SCH (11:48)
--- NOTE | 2016-12-09 14:23 | PN ---
Progress Note - Progress Note Date of Service: 12/09/16 SOAP: Subjective: []History from daughter with rapid onset of SOB. Patient has very little memory but today is without complaints. She is not in pain. Does report SOB and chest pain when moves. No fevers. Acetaminophen (Tylenol Tab*) 650 mg PO Q4H PRN PRN Reason: FEVER/PAIN Last Admin: 12/08/16 20:15 Dose: 650 mg Allopurinol (Zyloprim Tab*) 300 mg PO DAILY [facility] Last Admin: 12/09/16 08:37 Dose: 300 mg Aspirin (Aspirin Ec Low Dose*) 81 mg PO DAILY [facility] Last Admin: 12/09/16 08:37 Dose: 81 mg Atorvastatin Calcium (Lipitor*) 40 mg PO DAILY [facility] Last Admin: 12/09/16 08:37 Dose: 40 mg Buspirone HCl (Buspar Tab*) 5 mg PO TID [facility] Last Admin: 12/09/16 08:37 Dose: 5 mg Ceftriaxone Sodium 1,000 mg/ (Sodium Chloride) 50 mls @ 200 mls/hr IVPB Q24H [facility] Last Admin: 12/09/16 11:48 Dose: 200 mls/hr Azithromycin 500 mg/ Sodium (Chloride) 250 mls @ 250 mls/hr IVPB 2100 [facility] Last Admin: 12/08/16 21:40 Dose: 250 mls/hr Levothyroxine Sodium (Synthroid Tab*) 150 mcg PO DAILY@0600 [facility] Last Admin: 12/09/16 05:16 Dose: 150 mcg Metoprolol Succinate (Toprol Xl Tab*) 12.5 mg PO DAILY [facility] Last Admin: 12/09/16 08:37 Dose: 12.5 mg Paroxetine HCl (Paxil Tab*) 30 mg PO DAILY [facility] Last Admin: 12/09/16 08:36 Dose: 30 mg Objective: [] Vital Signs Temp Pulse Resp BP Pulse Ox 98.6 F 56 20 110/36 96 12/09/16 10:57 12/09/16 10:57 12/09/16 10:57 12/09/16 11:52 12/09/16 10:57 HEENT - conjunctiva pale. Lungs CTA She has slight systolic murmur, S1S2 Abd - no palpable spleen. Non tender, non distended. 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 She has increased LDH and schystocytes on her blood film. I suspect anemia is multifactorial. The Jakafi has been contributing and after discussion with Dr. 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 Cannot rule out acute blood loss from bleeding on Eliquis. She is symptomatic with chest pain and demand based rise in troponin. Discussion with Dr. Henry, the hemolysis across valve is exacerbated by the anemia itself and may improve with transfusions. Plan: []1. Agree with transfustion to Hgb > 9.0 a degree of anemia she has tolerated in the past. 2. Hold Jakafi 3. Will continue to follow LDH and retic count daily. 4. Hope is that combination of stopping Jakafi and improved hemodynamics with transfusion yield a positive feedback cycle. 5. Folic acid 1 gm daily 6. Hold Eliquis and check stool guiac for blood loss.
--- NOTE | 2016-12-09 15:32 | PN ---
Subjective Date of Service: 12/09/16 Interval History: Ms. Dunn reports some right sided hip pain today which she reports is chronic. She also confirms that its a bit difficult to breathe deeply. She denies other complaint including chest pain, nausea, or abdominal pain. She is tolerating oral intake well. Objective Active Medications: Acetaminophen (Tylenol Tab*) 650 mg PO Q4H PRN Allopurinol (Zyloprim Tab*) 300 mg PO DAILY [facility] Aspirin (Aspirin Ec Low Dose*) 81 mg PO DAILY [facility] Atorvastatin Calcium (Lipitor*) 40 mg PO DAILY [facility] Buspirone HCl (Buspar Tab*) 5 mg PO TID [facility] Ceftriaxone Sodium 1,000 mg/ (Sodium Chloride) 50 mls @ 200 mls/hr IVPB Q24H [facility] Azithromycin 500 mg/ Sodium (Chloride) 250 mls @ 250 mls/hr IVPB 2100 [facility] Levothyroxine Sodium (Synthroid Tab*) 150 mcg PO DAILY@0600 [facility] Metoprolol Succinate (Toprol Xl Tab*) 12.5 mg PO DAILY [facility] Paroxetine HCl (Paxil Tab*) 30 mg PO DAILY [facility] Vital Signs 12/08/16 12/08/16 12/08/16 15:43 17:25 18:20 Temperature 98.4 F 99.6 F 99.0 F Pulse Rate 63 72 65 Respiratory 20 32 36 Rate Blood Pressure 107/40 102/36 103/30 (mmHg) O2 Sat by Pulse 96 93 96 Oximetry 12/08/16 12/08/16 12/08/16 18:54 18:55 20:00 Temperature 98.1 F Pulse Rate 65 Respiratory 28 26 Rate Blood Pressure 90/30 110/50 (mmHg) O2 Sat by Pulse 97 Oximetry 12/08/16 12/08/16 12/09/16 23:29 23:30 00:17 Temperature 98.5 F Pulse Rate 57 Respiratory 16 23 Rate Blood Pressure 108/58 (mmHg) O2 Sat by Pulse 96 Oximetry 12/09/16 12/09/16 12/09/16 03:39 04:00 04:07 Temperature 98.9 F Pulse Rate 60 Respiratory 16 22 Rate Blood Pressure 108/41 (mmHg) O2 Sat by Pulse 88 92 Oximetry 12/09/16 12/09/16 12/09/16 07:51 08:00 09:45 Temperature 98.1 F 97.7 F Pulse Rate 54 54 Respiratory 22 28 24 Rate Blood Pressure 85/43 98/37 (mmHg) O2 Sat by Pulse 98 96 Oximetry 12/09/16 12/09/16 12/09/16 10:10 10:57 11:52 Temperature 98.7 F 98.6 F Pulse Rate 55 56 Respiratory 32 20 Rate Blood Pressure 108/35 92/33 110/36 (mmHg) O2 Sat by Pulse 91 96 Oximetry Oxygen Devices in Use Now: Nasal Cannula Appearance: Female lying in bed in NAD Eyes: No Scleral Icterus Ears/Nose/Mouth/Throat: Mucous Membranes Moist Neck: Trachea Midline Respiratory: Symmetrical Chest Expansion and Respiratory Effort, - - Rhonchi in bases R > L Cardiovascular: NL Sounds; No Murmurs; No JVD, No Edema Extremities: No Edema Skin: No Rash or Ulcers Neurological: NL Muscle Strength and Tone, - - Alert and appropriate, but very poor short term memory Nutrition: Taking PO's Result Diagrams: 12/09/16 04:56 12/08/16 05:28 Microbiology and Other Data: Microbiology 12/08/16 22:31 Transfusion Reaction Culture - Preliminary Blood Bag Culture Under Incubation Transfusion Reaction Gram Stain - Final 12/09/16 08:30 Stool Occult Blood ([facility]) - Final Stool 12/08/16 18:00 Legionella Urinary Antigen - Final Urine Negative Legionella Streptococcus pneumoniae Ag Screen - Final Negative S. pneumo Antigen Assess/Plan/Problems-Billing Assessment: Ms. Dunn is a 76 yo female with a PMH of CVA with cognitive impairment, myeloproliferative disorder follow by Dr. Betancourt, and aortic valve replacement 2016 who was admitted on 12/07/16 with SOB with concern for CHF, anemia, and possible pneumonia. - Patient Problems (1) CHF (congestive heart failure) Comment: - Appreciate cards consult. - Echo shows hyperdynamic small LV. Aortic valve functioning appropriately. - Appears euvolemic at this point, monitor closely with need for PRBC. - Suspect that anemia is contributing to hyperdynamic heart function with increased gradient across the valve which may actually worsen hemolytic anemia. - Continue low dose metoprolol. (2) H/O aortic valve replacement Comment: - Appreciate cards consult. - Echo confirms that valve is functioning properly. (3) Anemia Comment: - Hgb ~7 despite 3 units PRBC. - Likely multifactorial and should improve with holding of jakafi. Question if there is component of hemolysis with increased gradient across aortic valve, should actually improve with correction of anemia as heart becomes less hyperdynamic. No evidence of bleeding, plan to hold eliquis and start heparin IV. Appreciate hematology consult. (4) Pneumonia Comment: - Patient with SOB, leukocytosis and concern for patchy airspace disease on cxray. Though she has had leukocytosis in the past with hx of myeloproliferative disorder, given constellation of symptoms, plan to treat for pneumonia with ceftriaxone and azithromycin. - Procalcitonin 1.0, CRP 112. Strep pneumo and legionella urine antigens negative. (5) Myeloproliferative disorder Comment: - Appreciate Hematology consult. - Hold jakafi, anticipate this will improve anemia. (6) CVA (cerebral vascular accident) Comment: - With cognitive impairment. Continue supportive care. (7) DVT prophylaxis Comment: - SCDs with anemia. (8) Full code status Status and Disposition: Switch from OBV to inpatient. Anticipate discharge to home when medically stable.
[2016-12-09] MEDS ORDERED: Potassium Chlor TAB* 20 MEQ TAB.ER PO ONE (16:35)
[2016-12-09 16:54] LABS: Magnesium 1.6 mg/dL (1.9-2.7)
[2016-12-09] MEDS ORDERED: Heparin VIAL(*) 5000 UNITS/ML VIAL (FIVE THOUSAND) IV SCH (18:00)
[2016-12-09] MEDS ORDERED: Heparin DRIP 25,000 UNITS(*) 25,000 UNITS/500 ML BAG IV SCH (18:00)
--- NOTE | 2016-12-09 19:18 | RAD ---
HISTORY: Right hip pain COMPARISONS: None VIEWS: 3, Frontal view of the pelvis with frontal and frog-leg views of the right hip FINDINGS: BONE DENSITY: Normal. BONES: The patient is status post right hip arthroplasty. There is no hardware failure or osteolysis. JOINTS: The patient is status post right hip arthroplasty. There is mild osteoarthritis of left hip and SI joints. ALIGNMENT: There is no dislocation. SOFT TISSUES: Unremarkable. OTHER FINDINGS: Degenerative changes are noted of the spine IMPRESSION: STATUS POST RIGHT HIP ARTHROPLASTY
[2016-12-09] MEDS: Heparin DRIP 25,000 UNITS(*) 25,000 UNITS/500 ML BAG IV SCH (21:19)
[2016-12-09] MEDS: Azithromycin IV(*) 500 MG in NS 0.9% 250 ML* 250 ML IVPB SCH (21:32)
[2016-12-10] MEDS: busPIRone TAB* 5 MG PO SCH ×4 (00:35→21:07)
[2016-12-10] MEDS: Acetaminophen TAB* 325 MG PO PRN (00:35)
[2016-12-10 05:47] LABS: Hematocrit 31 % (35-47); Hemoglobin 10.5 g/dl (12.0-16.0); Mean Corpuscular HGB Conc 34 g/dl (31-36); Mean Corpuscular Hemoglobin 29 pg (27-31); Mean Corpuscular Volume 87 fL (80-97); Mean Platelet Volume 8 um3 (7.4-10.4); Red Blood Count 3.58 10^6/ul (4.0-5.4); Red Cell Distribution Width 18 % (10.5-15); White Blood Count 13.6 10^3/ul (3.5-10.8)
[2016-12-10 05:48] LABS: Add Diff/Slide Review? Slide Review Added; Comments Flag Yes
[2016-12-10 06:00] LABS: Blood Urea Nitrogen 36 mg/dL (6-24)
[2016-12-10] MEDS: Levothyroxine TAB* 150 MCG TAB PO SCH (06:05)
[2016-12-10] MEDS: Metoprolol Succinate XL TAB* 25 MG PO SCH (10:09)
[2016-12-10] MEDS: Aspirin EC Low Dose* 81 MG TAB.EC PO SCH (10:15)
[2016-12-10] MEDS: Allopurinol TAB* 300 MG PO SCH (10:15)
[2016-12-10] MEDS: Atorvastatin* 40 MG TAB PO SCH (10:15)
[2016-12-10] MEDS: PARoxetine HCL TAB* 10 MG PO SCH (10:15)
[2016-12-10] MEDS: cefTRIAXone VIAL(*) 1,000 MG in NS 0.9% 50 ML* 50 ML IVPB SCH (10:18)
--- NOTE | 2016-12-10 10:27 | PN ---
Subjective Date of Service: 12/10/16 Interval History: Ms. Dunn states that she is feeling pretty well today other than feeling tired. She denies chest pain, SOB, nausea, or abdominal pain. Objective Active Medications: Acetaminophen (Tylenol Tab*) 650 mg PO Q4H PRN Allopurinol (Zyloprim Tab*) 300 mg PO DAILY [facility] Aspirin (Aspirin Ec Low Dose*) 81 mg PO DAILY [facility] Atorvastatin Calcium (Lipitor*) 40 mg PO DAILY [facility] Buspirone HCl (Buspar Tab*) 5 mg PO TID [facility] Heparin Sodium (Porcine) (Heparin Vial(*)) 0 units IV .PER PROTOCOL [facility] Ceftriaxone Sodium 1,000 mg/ (Sodium Chloride) 50 mls @ 200 mls/hr IVPB Q24H [facility] Azithromycin 500 mg/ Sodium (Chloride) 250 mls @ 250 mls/hr IVPB 2100 [facility] Heparin Sodium/Dextrose (Heparin Drip 25,000 Units(*)) 25,000 units in 500 mls @ 0 mls/hr IV .NO INITIAL BOLUS [facility]; As Directed Levothyroxine Sodium (Synthroid Tab*) 150 mcg PO DAILY@0600 [facility] Metoprolol Succinate (Toprol Xl Tab*) 12.5 mg PO DAILY [facility] Paroxetine HCl (Paxil Tab*) 30 mg PO DAILY [facility] Vital Signs: Temp Pulse Resp BP Pulse Ox 97.7 F 47 16 97/34 95 12/10/16 08:02 12/10/16 08:02 12/10/16 08:02 12/10/16 08:02 12/10/16 08:02 Oxygen Devices in Use Now: Nasal Cannula Appearance: Elderly female lying in bed in NAD Eyes: No Scleral Icterus Ears/Nose/Mouth/Throat: Mucous Membranes Moist Neck: NL Appearance and Movements; NL JVP Respiratory: Symmetrical Chest Expansion and Respiratory Effort, Clear to Auscultation Cardiovascular: NL Sounds; No Murmurs; No JVD, No Edema Abdominal: NL Sounds; No Tenderness; No Distention Lymphatic: No Cervical Adenopathy Extremities: No Edema Skin: No Rash or Ulcers Neurological: Alert and Oriented x 3, NL Muscle Strength and Tone Nutrition: Taking PO's Result Diagrams: 12/10/16 05:40 12/10/16 05:40 Microbiology and Other Data: Microbiology 12/08/16 22:31 Transfusion Reaction Culture - Preliminary Blood Bag Culture Under Incubation Transfusion Reaction Gram Stain - Final 12/09/16 08:30 Stool Occult Blood ([facility]) - Final Stool 12/08/16 18:00 Legionella Urinary Antigen - Final Urine Negative Legionella Streptococcus pneumoniae Ag Screen - Final Negative S. pneumo Antigen Assess/Plan/Problems-Billing Assessment: Ms. Dunn is a 76 yo female with a PMH of CVA with cognitive impairment, myeloproliferative disorder follow by Dr. Betancourt, and aortic valve replacement 2016 who was admitted on 12/07/16 with SOB with concern for CHF, anemia, and possible pneumonia. - Patient Problems (1) CHF (congestive heart failure) Comment: - Appreciate cards consult. - Echo shows hyperdynamic small LV. Aortic valve functioning appropriately. - Appears euvolemic at this point. - Continue low dose metoprolol. (2) H/O aortic valve replacement Comment: - Appreciate cards consult. - Echo confirms that valve is functioning properly. (3) Anemia Comment: - Hgb is now 10 after 5 units of PRBC. - Likely multifactorial, appreciate hematology consult. Anticipated that discontinuation of jakafi would improve anemia. Question if there is component of hemolysis with increased gradient across aortic valve. No evidence of bleeding, plan to hold eliquis and start heparin IV. (4) Pneumonia Comment: - Continue ceftriaxone and azithromycin. - Strep pneumo and legionella urine antigens negative. (5) Acute kidney injury Comment: - Suspect related to anemia and CHF, - Recheck in AM. (6) Myeloproliferative disorder Comment: - Appreciate Hematology consult. - Hold jakafi, anticipate this will improve anemia. (7) CVA (cerebral vascular accident) Comment: - With cognitive impairment. Continue supportive care. (8) DVT prophylaxis Comment: - Heparin gtt while eliquis on hold. (9) Full code status Status and Disposition: Inpatient. Anticipate discharge to home when medically stable.
[2016-12-10] MEDS: Heparin DRIP 25,000 UNITS(*) 25,000 UNITS/500 ML BAG IV SCH (19:23)
[2016-12-10] MEDS: Azithromycin IV(*) 500 MG in NS 0.9% 250 ML* 250 ML IVPB SCH (21:07)
[2016-12-11 05:12] LABS: Hematocrit 29 % (35-47); Hemoglobin 9.4 g/dl (12.0-16.0); Mean Corpuscular HGB Conc 33 g/dl (31-36); Mean Corpuscular Hemoglobin 28 pg (27-31); Mean Corpuscular Volume 87 fL (80-97); Mean Platelet Volume 8 um3 (7.4-10.4); Red Blood Count 3.31 10^6/ul (4.0-5.4); Red Cell Distribution Width 18 % (10.5-15); White Blood Count 12.3 10^3/ul (3.5-10.8)
[2016-12-11 05:16] LABS: Comments Flag Yes
[2016-12-11 05:17] LABS: Add Diff/Slide Review? Slide Review Added
[2016-12-11 05:31] LABS: BUN/Creatinine Ratio 28.7 (8-20); Calcium 9.1 mg/dL (8.6-10.3); EGFR African American 63.1 (>60); EGFR Non-African American 49.1 (>60); Potassium 3.8 mmol/L (3.5-5.0)
[2016-12-11] MEDS: Levothyroxine TAB* 150 MCG TAB PO SCH (06:10)
[2016-12-11] MEDS: Metoprolol Succinate XL TAB* 25 MG PO SCH (09:27)
[2016-12-11] MEDS: busPIRone TAB* 5 MG PO SCH ×3 (09:28→20:23)
[2016-12-11] MEDS: PARoxetine HCL TAB* 10 MG PO SCH (09:28)
[2016-12-11] MEDS: Allopurinol TAB* 300 MG PO SCH (09:28)
[2016-12-11] MEDS: Aspirin EC Low Dose* 81 MG TAB.EC PO SCH (09:28)
[2016-12-11] MEDS: Atorvastatin* 40 MG TAB PO SCH (09:28)
--- NOTE | 2016-12-11 10:14 | PN ---
Subjective Date of Service: 12/11/16 Interval History: Ms. Dunn reports feeling very confused overnight but feeling better now. She also feels tired. She denies feeling short of breath or having chest pain. She is tolerating oral intake well and has no nausea, diarrhea or abdominal pain. Objective Active Medications: Acetaminophen (Tylenol Tab*) 650 mg PO Q4H PRN Allopurinol (Zyloprim Tab*) 300 mg PO DAILY MELONY Aspirin (Aspirin Ec Low Dose*) 81 mg PO DAILY MELONY Atorvastatin Calcium (Lipitor*) 40 mg PO DAILY MELONY Buspirone HCl (Buspar Tab*) 5 mg PO TID MELONY Heparin Sodium (Porcine) (Heparin Vial(*)) 0 units IV .PER PROTOCOL MELONY Ceftriaxone Sodium 1,000 mg/ (Sodium Chloride) 50 mls @ 200 mls/hr IVPB Q24H MELONY Azithromycin 500 mg/ Sodium (Chloride) 250 mls @ 250 mls/hr IVPB 2100 MELONY Heparin Sodium/Dextrose (Heparin Drip 25,000 Units(*)) 25,000 units in 500 mls @ 0 mls/hr IV .NO INITIAL BOLUS MELONY; As Directed Levothyroxine Sodium (Synthroid Tab*) 150 mcg PO DAILY@0600 MELONY Metoprolol Succinate (Toprol Xl Tab*) 12.5 mg PO DAILY MELONY Paroxetine HCl (Paxil Tab*) 30 mg PO DAILY MELONY Vital Signs: Temp Pulse Resp BP Pulse Ox 98.6 F 57 18 122/41 89 12/11/16 08:29 12/11/16 08:29 12/11/16 08:29 12/11/16 08:29 12/11/16 08:29 Oxygen Devices in Use Now: Nasal Cannula Appearance: Elderly female lying in bed in NAD Eyes: No Scleral Icterus Ears/Nose/Mouth/Throat: Mucous Membranes Moist Neck: Trachea Midline Respiratory: Symmetrical Chest Expansion and Respiratory Effort, Clear to Auscultation Cardiovascular: NL Sounds; No Murmurs; No JVD, No Edema Abdominal: NL Sounds; No Tenderness; No Distention Lymphatic: No Cervical Adenopathy Extremities: No Edema Skin: No Rash or Ulcers Neurological: Alert and Oriented x 3, NL Muscle Strength and Tone Nutrition: Taking PO's Result Diagrams: 12/11/16 04:47 12/11/16 04:47 Microbiology and Other Data: . Assess/Plan/Problems-Billing Assessment: Ms. Dunn is a 76 yo female with a PMH of CVA with cognitive impairment, myeloproliferative disorder follow by Dr. Betancourt, and aortic valve replacement 2016 who was admitted on 12/07/16 with SOB with concern for CHF, anemia, and possible pneumonia. - Patient Problems (1) Hypoxia Comment: - Patient requiring 2.5 L NC. - Suspect due to pneumonia and atelectasis with component of CHF after multiple units of PRBC for anemia. - Lasix 20mg IV x 1 now. (2) CHF (congestive heart failure) Comment: - Appreciate cards consult. - Echo shows hyperdynamic small LV. Aortic valve functioning appropriately. - Lasix x 1 for hypoxia as noted above. - Continue low dose metoprolol. (3) H/O aortic valve replacement Comment: - Appreciate cards consult. - Echo confirms that valve is functioning properly. (4) Anemia Comment: - Hgb is now 9.4 after 5 units of PRBC. - Likely multifactorial, appreciate hematology consult. Anticipated that discontinuation of jakafi would improve anemia. Question if there is component of hemolysis with increased gradient across aortic valve. No evidence of bleeding, plan to hold eliquis and start heparin IV. (5) Pneumonia Comment: - Switch to oral regimen, augmentin and azithromcyin. - Strep pneumo and legionella urine antigens negative. (6) Atrial flutter Comment: - Sinus bradycardia. - Eliquis on hold, continue hep gtt until review with hematology tomorrow ( patient has hx of CVA). (7) Acute kidney injury Comment: - Resolved. - Suspect related to anemia and CHF. (8) Myeloproliferative disorder Comment: - Appreciate Hematology consult. - Hold jakafi, anticipate this will improve anemia but will worsen thrombocytosis. (9) CVA (cerebral vascular accident) Comment: - With cognitive impairment. Continue supportive care. (10) DVT prophylaxis Comment: - Heparin gtt while eliquis on hold. (11) Full code status Status and Disposition: Inpatient. Anticipate discharge to home when medically stable.
[2016-12-11] MEDS ORDERED: Furosemide IV* 10 MG/ML 2 ML VIAL (20 MG) IV ONE (10:27)
[2016-12-11] MEDS: Amoxicillin/Clavulanate TAB* 875 MG PO SCH ×2 (11:01→20:24)
[2016-12-11] MEDS: Heparin DRIP 25,000 UNITS(*) 25,000 UNITS/500 ML BAG IV SCH (17:44)
[2016-12-11] MEDS: Azithromycin TAB* 250 MG PO SCH (20:23)
[2016-12-12] MEDS: Levothyroxine TAB* 150 MCG TAB PO SCH (05:55)
--- NOTE | 2016-12-12 07:45 | PN ---
Subjective Date of Service: 12/12/16 Interval History: Ms. Dunn states that she is feeling a bit better than yesterday. She feels more awake and is less short of breath with activity. She denies chest pain, nausea, or abdominal pain. She ambulated in the hallway with an O2 saturation of 91% on 3L at the [facility] and an O2 saturation of 89% upon returning to her room. Objective Active Medications: Acetaminophen (Tylenol Tab*) 650 mg PO Q4H PRN Allopurinol (Zyloprim Tab*) 300 mg PO DAILY MELONY Amoxicillin/Clavulanate Potassium (Augmentin Tab*) 875 mg PO BID MELONY Aspirin (Aspirin Ec Low Dose*) 81 mg PO DAILY MELONY Atorvastatin Calcium (Lipitor*) 40 mg PO DAILY MELONY Azithromycin (Zithromax Tab*) 250 mg PO BEDTIME MELONY Buspirone HCl (Buspar Tab*) 5 mg PO TID MELONY Heparin Sodium (Porcine) (Heparin Vial(*)) 0 units IV .PER PROTOCOL MELONY Heparin Sodium/Dextrose (Heparin Drip 25,000 Units(*)) 25,000 units in 500 mls @ 0 mls/hr IV .NO INITIAL BOLUS MELONY; As Directed Levothyroxine Sodium (Synthroid Tab*) 150 mcg PO DAILY@0600 MELONY Metoprolol Succinate (Toprol Xl Tab*) 12.5 mg PO DAILY MELONY Paroxetine HCl (Paxil Tab*) 30 mg PO DAILY MELONY Vital Signs: Temp Pulse Resp BP Pulse Ox 97.3 F 52 20 126/58 97 12/12/16 03:33 12/12/16 03:33 12/12/16 03:33 12/12/16 03:34 12/12/16 03:33 Oxygen Devices in Use Now: Nasal Cannula Appearance: Female lying in bed in NAD Eyes: No Scleral Icterus Ears/Nose/Mouth/Throat: Mucous Membranes Moist Neck: Trachea Midline Respiratory: Symmetrical Chest Expansion and Respiratory Effort, - - Inspiratory crackles throughout right lung fu Cardiovascular: NL Sounds; No Murmurs; No JVD, No Edema Abdominal: NL Sounds; No Tenderness; No Distention Lymphatic: No Cervical Adenopathy Extremities: No Edema Skin: No Rash or Ulcers Neurological: Alert and Oriented x 3, NL Muscle Strength and Tone Nutrition: Taking PO's Result Diagrams: 12/12/16 05:01 12/12/16 05:01 Microbiology and Other Data: . Assess/Plan/Problems-Billing Assessment: Ms. Dunn is a 76 yo female with a PMH of CVA with cognitive impairment, myeloproliferative disorder follow by Dr. Betancourt, and aortic valve replacement 2016 who was admitted on 12/07/16 with SOB with concern for CHF, anemia, and possible pneumonia. - Patient Problems (1) Hypoxia Comment: - Continued improvement but patient requiring 3 L NC with ambulation today. - Suspect due to pneumonia and atelectasis with component of CHF after multiple units of PRBC for anemia. - Patient appears euvolemic with a BNP 197, no further lasix today but will continue abx for pneumonia. (2) Pneumonia Comment: - Switch to oral regimen, augmentin and azithromcyin. - Strep pneumo and legionella urine antigens negative. (3) Anemia Comment: - Hgb is now 9.8 after 5 units of PRBC. - Likely multifactorial, appreciate hematology consult. Anticipated that discontinuation of jakafi would improve anemia. Question if there is component of hemolysis with increased gradient across aortic valve. - No evidence of bleeding, plan to hold eliquis and start heparin IV. Will check creatinine clearance, if > 60 will resume eliquis. (4) CHF (congestive heart failure) Comment: - Appears euvolemic. - Appreciate cards consult. - Echo shows hyperdynamic small LV. Aortic valve functioning appropriately. - Continue low dose metoprolol. (5) H/O aortic valve replacement Comment: - Appreciate cards consult. - Echo confirms that valve is functioning properly. (6) Atrial flutter Comment: - Sinus bradycardia. - Will resume eliquis if creatinine clearance > 60. (7) Acute kidney injury Comment: - Resolved, checking creatine clearance now. - Suspect related to anemia and CHF. (8) Myeloproliferative disorder Comment: - Appreciate Hematology consult. - Hold jakafi, anticipate this will improve anemia but will worsen thrombocytosis. Patient will continue to follow with hematology outpatient. (9) CVA (cerebral vascular accident) Comment: - With cognitive impairment. Continue supportive care. (10) DVT prophylaxis Comment: - Heparin gtt while eliquis on hold. (11) Full code status Status and Disposition: Inpatient. Anticipate discharge to home when medically stable.
[2016-12-12 08:09] LABS: Add Diff/Slide Review? Slide Review Added; Comments Flag Yes; Hematocrit 30 % (35-47); Hemoglobin 9.8 g/dl (12.0-16.0); Mean Corpuscular HGB Conc 33 g/dl (31-36); Mean Corpuscular Hemoglobin 29 pg (27-31); Mean Corpuscular Volume 88 fL (80-97); Mean Platelet Volume 8 um3 (7.4-10.4); Red Blood Count 3.43 10^6/ul (4.0-5.4); Red Cell Distribution Width 18 % (10.5-15); White Blood Count 11.4 10^3/ul (3.5-10.8)
[2016-12-12] MEDS: Aspirin EC Low Dose* 81 MG TAB.EC PO SCH (08:27)
[2016-12-12] MEDS: Allopurinol TAB* 300 MG PO SCH (08:27)
[2016-12-12] MEDS: PARoxetine HCL TAB* 10 MG PO SCH (08:28)
[2016-12-12] MEDS: Amoxicillin/Clavulanate TAB* 875 MG PO SCH ×2 (08:28→21:36)
[2016-12-12] MEDS: Atorvastatin* 40 MG TAB PO SCH (08:28)
[2016-12-12] MEDS: busPIRone TAB* 5 MG PO SCH ×3 (08:29→21:36)
[2016-12-12 08:34] LABS: BUN/Creatinine Ratio 26.1 (8-20); EGFR African American 58.7 (>60); EGFR Non-African American 45.6 (>60); Potassium 4.6 mmol/L (3.5-5.0)
[2016-12-12 08:56] LABS: Eosinophils % 8 % (0-6); Hypochromasia 1+; Immature Granulocytes 6 % (0-9); Myelocytes % 1 % (0-1); Neutrophil % 73 % (38-83); Polychromasia 1+
[2016-12-12] MEDS: Metoprolol Succinate XL TAB* 25 MG PO SCH (10:22)
--- NOTE | 2016-12-12 11:33 | PN ---
Progress Note - Progress Note Date of Service: 12/12/16 SOAP: Subjective: []Subjectively stable, no pain. Breathing ok. Acetaminophen (Tylenol Tab*) 650 mg PO Q4H PRN PRN Reason: FEVER/PAIN Last Admin: 12/10/16 00:35 Dose: 650 mg Allopurinol (Zyloprim Tab*) 300 mg PO DAILY [facility] Last Admin: 12/12/16 08:27 Dose: 300 mg Amoxicillin/Clavulanate Potassium (Augmentin Tab*) 875 mg PO BID [facility] Last Admin: 12/12/16 08:28 Dose: 875 mg Aspirin (Aspirin Ec Low Dose*) 81 mg PO DAILY [facility] Last Admin: 12/12/16 08:27 Dose: 81 mg Atorvastatin Calcium (Lipitor*) 40 mg PO DAILY [facility] Last Admin: 12/12/16 08:28 Dose: 40 mg Azithromycin (Zithromax Tab*) 250 mg PO BEDTIME [facility] Last Admin: 12/11/16 20:23 Dose: 250 mg Buspirone HCl (Buspar Tab*) 5 mg PO TID [facility] Last Admin: 12/12/16 08:29 Dose: 5 mg Heparin Sodium (Porcine) (Heparin Vial(*)) 0 units IV .PER PROTOCOL [facility] PRN Reason: Protocol Heparin Sodium/Dextrose (Heparin Drip 25,000 Units(*)) 25,000 units in 500 mls @ 0 mls/hr IV .NO INITIAL BOLUS [facility]; As Directed PRN Reason: Protocol Last Admin: 12/11/16 17:44 Dose: 23 mls/hr Levothyroxine Sodium (Synthroid Tab*) 150 mcg PO DAILY@0600 [facility] Last Admin: 12/12/16 05:55 Dose: 150 mcg Metoprolol Succinate (Toprol Xl Tab*) 12.5 mg PO DAILY [facility] Last Admin: 12/12/16 10:22 Dose: Not Given Paroxetine HCl (Paxil Tab*) 30 mg PO DAILY [facility] Last Admin: 12/12/16 08:28 Dose: 30 mg Objective: [] Vital Signs Temp Pulse Resp BP Pulse Ox 97.6 F 56 14 107/42 98 12/12/16 07:44 12/12/16 07:44 12/12/16 07:44 12/12/16 07:44 12/12/16 07:44 HEENT - conjunctiva pale. Lungs Some right sided crackles, good air movment She has slight systolic murmur, S1S2 Abd - no palpable spleen. Non tender, non distended. Ext - No C/C/E Blood film + for schistocytes CXR - right side infiltrate, multilobar. Assessment: []76 year old with history of Gm-2+ myeloproliferative disease on Jakafi who presents with pnemonia and progressive anemia. She had increased LDH and schystocytes on her blood film. I suspect anemia is multifactorial. The Jakafi has been contributing and after discussion with Dr. 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 No evidence of active bleeding. Hgb now improved after 5 U PRBC, platelets are rising. Plan: []1. Improved anemia and will re-check Retic and LDH today 2. Hold Jakafi. Options in future include restarting with growth factor support , not treating ET and enduring stroke risk. 3. Anticoagulation. Heparin for time being. Check 24 hr CrCl to decide about Eliquis on discharge. 4. Pulmonary infiltrate, agree with antibiotics. 5. Folic acid 1 gm daily
[2016-12-12 16:59] LABS: Corrected Retic Count 2.9 % (0.5-1.5); Immature Retic Fraction 0.68
[2016-12-12 17:12] LABS: Comments Flag Yes
[2016-12-12] MEDS: Azithromycin TAB* 250 MG PO SCH (21:36)
[2016-12-13] MEDS: Levothyroxine TAB* 150 MCG TAB PO SCH (05:14)
[2016-12-13 05:29] LABS: Corrected Retic Count 2.8 % (0.5-1.5); Hematocrit 29 % (35-47); Hemoglobin 9.6 g/dl (12.0-16.0); Immature Retic Fraction 0.67; Mean Corpuscular HGB Conc 34 g/dl (31-36); Mean Corpuscular Hemoglobin 29 pg (27-31); Mean Corpuscular Volume 87 fL (80-97); Mean Platelet Volume 7 um3 (7.4-10.4); Red Blood Count 3.28 10^6/ul (4.0-5.4); Red Cell Distribution Width 18 % (10.5-15); White Blood Count 12.7 10^3/ul (3.5-10.8)
[2016-12-13 05:31] LABS: Add Diff/Slide Review? Slide Review Added; Comments Flag Yes
[2016-12-13 05:49] LABS: BUN/Creatinine Ratio 22.8 (8-20); Calcium 9.4 mg/dL (8.6-10.3); EGFR African American 59.3 (>60); EGFR Non-African American 46.1 (>60); Potassium 4.3 mmol/L (3.5-5.0)
[2016-12-13 06:03] LABS: Basophilic Stippling 1+; Hypochromasia 1+; Polychromasia 2+
[2016-12-13] MEDS: Metoprolol Succinate XL TAB* 25 MG PO SCH (08:45)
[2016-12-13] MEDS: Atorvastatin* 40 MG TAB PO SCH (08:55)
[2016-12-13] MEDS: Allopurinol TAB* 300 MG PO SCH (08:55)
[2016-12-13] MEDS: Amoxicillin/Clavulanate TAB* 875 MG PO SCH (08:55)
[2016-12-13] MEDS: Aspirin EC Low Dose* 81 MG TAB.EC PO SCH (08:55)
[2016-12-13] MEDS: busPIRone TAB* 5 MG PO SCH ×2 (08:56→13:11)
[2016-12-13] MEDS: PARoxetine HCL TAB* 10 MG PO SCH (08:56)
[2016-12-13 16:22] VITALS: BP 123/47
--- NOTE | 2016-12-14 04:13 | DS ---
CC: Dr. Plunkett; Dr. Aguilar; Dr. Betancourt * DISCHARGE SUMMARY: DATE OF ADMISSION: 12/07/16 DATE OF DISCHARGE: 12/13/16 PRIMARY CARE PROVIDER: Dr. Plunkett. PRIMARY SENIOR CISCO NETWORK ENGINEER: Dr. Aguilar. CONSULTING SENIOR CISCO NETWORK ENGINEER: Dr. Henry. ELECTRONICS TECHNICIAN APPRENTICE/ONCOLOGIST: Dr. Betancourt. DISCHARGING PROVIDER: CYN Dhaliwal. SUPERVISING PHYSICIAN: Dr. Norman Guillaume * (DICTATED BY CYN DHALIWAL) PRIMARY DISCHARGE DIAGNOSES: 1. Symptomatic anemia, status post transfusion of 5 units of packed red blood cells. 2. Pneumonia with negative strep pneumo and legionella antigen, discharged with additional 5 days of Augmentin. 3. Acute on chronic diastolic heart failure. 4. Hypoxia, requiring 2 L of supplemental oxygen with activity at the time of discharge - anticipate these needs will last no more than a few weeks related to her acute illness. 5. Acute kidney injury - resolved. 6. Recent aortic valve replacement. 7. Leukocytosis and thrombocytosis with known myeloproliferative disorder, followed by Dr. Betancourt. 8. Demand ischemia. SECONDARY DISCHARGE DIAGNOSES: 1. History of atrial flutter. 2. History of cerebrovascular accident with cognitive impairment, but no significant physical limitations. DISCHARGE MEDICATIONS: 1. Allopurinol 300 mg p.o. daily. 2. Amlodipine 5 mg p.o. daily. 3. Augmentin 875/125 one tablet p.o. twice daily x5 days. 4. Eliquis 5 mg p.o. twice daily. 5. Aspirin 81 mg p.o. daily. 6. Atorvastatin 40 mg p.o. daily. 7. Lasix 20 mg p.o. daily x5 days. 8. Levothyroxine 150 mcg p.o. daily. 9. Lisinopril 5 mg p.o. daily. 10. Metoprolol succinate 12.5 mg p.o. daily. 11. Paxil 30 mg p.o. daily. 12. BuSpar 5 mg p.o. 3 times daily. Medication changes: 1. Hold Jakafi. 2. Lasix x5 days. 3. Augmentin x5 days. 4. Supplemental O2 at 2 L via nasal cannula. HOSPITAL IMAGIN. Chest x-ray, 12/07/16, shows diffuse multifocal airspace disease, greater on the right than left with associated cardiomegaly. 2. Chest x-ray, 12/08/16, shows persistent right greater than left multifocal airspace disease with cardiomegaly. 3. Hip and pelvis x-ray, 12/09/16, shows prior right hip arthroplasty, but no other acute findings. 4. Transthoracic echocardiogram shows moderate LVH, left ventricular ejection fraction estimated at greater than 65%, diastolic dysfunction, left atrium is fairly dilated, right atrium mildly dilated, a bioprosthetic aortic valve is present. There is [id number] mitral regurg with severe mitral annular calcification and moderate mitral stenosis. HOSPITAL COURSE: This is a 76-year-old female with a history significant for recent TAVR in September 2016 with myeloproliferative disorder, followed by Dr. Betancourt, chronically treated with Jakafi as well as chronic diastolic heart failure and mitral stenosis with a prior CVA leaving her with some cognitive impairment, but no significant physical limitations, who presented to the emergency department with complaints of shortness of breath. The patient's symptoms had a rather acute onset. Initial labs demonstrated leukocytosis with a white blood cell count of 19,000 as well as thrombocytosis with a platelet count of 600,000, but she was anemic with a hemoglobin of 7.1. Her baseline hemoglobin appears to be between 9 and 10 g/dL and prior white blood cell counts between 12,000 and 17,000. Her chemistry panel was significant for mildly elevated creatinine up to 1.27 with baseline near 1. Her initial troponin was significantly elevated at 0.39 and her BNP was elevated at 693. Procalcitonin was noted to be positive, measured at 1.0. CRP was significantly elevated, but lactic acid within normal limits. Her initial chest x-ray showed cardiomegaly with a patchy airspace disease, more prominent on the right than the left suggestive of pneumonia, supposed to be all related to pulmonary edema. The patient was initially transfused 1 unit of packed red blood cells without significant improvement in her hemoglobin and she was diuresed with IV Lasix. Repeat troponins should rise to a maximum of 1.15. The patient denied any complaints of chest pain nor were there acute ischemic changes noted on EKG. The patient was evaluated by gravity prospecting observer, Dr. Henry, with her elevated troponins and evidence of heart failure. She underwent an echocardiogram, which showed a normal- appearing left ventricle without focal wall motion abnormalities and her heart failure was thought to be high-output failure secondary to hyperdynamic state related to her anemia. Diuresis along with additional blood transfusion was recommended. The patient eventually required a total of 5 units of packed red blood cells to transfuse her to a hemoglobin of greater than 9 g/dL. Her troponin did improve after approximately 24 hours of hospitalization. The patient was treated for community-acquired pathogens, strep pneumo, and legionella antigens were noted to be negative. She remained afebrile throughout her hospital stay. Dr. Betancourt was consulted in regards to her anemia and myeloproliferative disorder. He suggested holding her Jakafi in the setting of anemia and agreed with transfusion. Stool was checked for occult blood, which was negative. Her Eliquis was initially held due to the anemia and concern for possible bleeding and she was maintained on a heparin drip during her hospitalization, but transitioned back to Eliquis at the time of discharge. Her creatinine clearance by 24-hour urine was checked prior to discharge and measured at 54, calculated was near 55. The patient's hemoglobin remained stable for approximately 72 hours prior to discharge. Her platelet count climbed to 632,000 prior to discharge and her white blood cell count remained stable between 11,000 and 13,000. She reported feeling quite well and at rest, room air saturations remained in the mid 90s; however, with ambulation at the time of discharge she dropped to approximately 80% on room air, but was able to maintain saturations in the mid 90s with 2 L via nasal cannula. DISPOSITION AND FOLLOWUP PLAN: The patient is being discharged to home where she lives with her daughter. She is being discharged with 2 L of supplemental oxygen via nasal cannula. Anticipate that her oxygen needs will be short lived and recommend that an ambulatory oximetry testing be completed with her primary care provider next week at followup to determine whether additional supplemental O2 is still required. She is being discharged with 5 additional days of oral Lasix as well as 5 additional days of Augmentin for treatment of her pneumonia. Recommend repeat CBC, LDH, and reticulocyte count in approximately 1 week and she has a followup scheduled with Dr. Betancourt for later next week. Dr. Betancourt has recommended holding her Jakafi at the time of discharge. This may be resumed in the future. TIME SPENT: Greater than 30 minutes was spent on this discharge. CYN DHALIWAL [id number]/[facility] #: [id number] [facility]
--- NOTE | 2016-12-16 15:42 | ED ---
Ana Wilson Alfonso, scribed for Valerie Ugalde MD on 12/07/16 at 2018 . Shortness of Breath - HPI Summary HPI Summary: This patient is a 76 year old F presenting to [facility] accompanied by daughter with a chief complaint of SOB worse since earlier today. The patient rates the pain 0/10 in severity. Symptoms aggravated by exertion. Symptoms alleviated by nothing. Daughter reports hip pain (resolved) and epistaxis. Daughter denies fever, chills, weight gain, and coughing. - History of Current Complaint Chief Complaint: EDShortnessOfBreath Time Seen by Provider: 12/07/16 18:51 Hx Obtained From: Patient, Family/Reverse Engineer - daughter Onset/Duration: Still Present, Worse Since - earlier today Timing: Constant Aggrevating Factors: Other - exertion Alleviating Factors: Nothing - Allergy/Home Medications Allergies/Adverse Reactions: Allergies Allergy/AdvReac Type Severity Reaction Status Date / Time No Known Allergies Allergy Verified 12/07/16 19:04 PMH/Surg Hx/FS Hx/Imm Hx Cardiovascular History: Reports: Hx Hypertension Opthamlomology History: Denies: Hx Legally Blind EENT History: Denies: Hx Deafness Neurological History: Reports: Hx CVA - Cancer History Cancer Type, 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 Negative: Cough Positive: Other - Hip pain (resolved); negative weight gain All Other Systems Reviewed And Are Negative: Yes Physical Exam - Summary Physical Exam Summary: General: Well appearing, no pain distress Skin: Warm, Skin Color Reflects Adequate Perfusion, Dry Eyes: EOMI, ULYSSES ENT: Pharynx normal, TMs normal Neck: Supple, nontender Respiratory: breath sounds present, no rhonchi, no wheezes, Crackles at bilateral bases, tachypnea Cardiovascular: RRR, no murmur, no rub, no gallop Abdomen: Soft, nontender, Non-distended, no guarding, no rebound Bowel: Present Musculoskeletal: MANUEL, No edema Neuro: Sensory/motor intact, A&Ox3, CN intact 2-12 Psych: Affect/mood appropriate Triage Information Reviewed: Yes Vital Signs On Initial Exam: Initial Vitals Temp Pulse Resp BP Pulse Ox 98.9 F 64 22 118/43 82 12/07/16 18:01 12/07/16 18:01 12/07/16 18:01 12/07/16 18:01 12/07/16 18:01 Vital Signs Reviewed: Yes - Melvin Coma Scale Coma Scale Total: 15 Diagnostics - Vital Signs Vital Signs Temp Pulse Resp BP Pulse Ox 12/07/16 19:01 48 76 12/07/16 19:00 145/48 12/07/16 18:01 98.9 F 64 22 118/43 82 - Laboratory Result Diagrams: 12/13/16 05:21 12/13/16 05:21 Lab Statement: Any lab studies that have been ordered have been reviewed, and results considered in the medical decision making process. - Radiology CXR Radiology Interpretation Completed By: Radiologist - DIFFUSE MULTIFOCAL AIRSPACE DISEASE, GREATER ON THE RIGHT THAN ON THE LEFT. CARDIOMEGALY. ED physician has reviewed this radiology report and agrees. - EKG 1913 Cardiac Rate: NL - BPM 60 EKG Rhythm: Sinus Rhythm EKG Interpretation: NAC Course/Dx - Diagnoses Provider Diagnoses: CHF (congestive heart failure) - Physician Notifications Discussed Care of Patient With: Markel Colvin Instructed by Provider To: Other - Consulted Dr. Colvin (hospitalist) who agrees to admit. Discharge - Discharge Plan Condition: Stable Disposition: ADMITTED TO Health system documentation as recorded by the Ana torres Alfonso accurately reflects the service I personally performed and the decisions made by me, Valerie Ugalde MD.
== END 2016-12-13 16:55 | disposition home health service (06) | DRG 808 ==
LOC: ED 17:59 → MEDTELE 22:10 → OBSVTOIN 12-08 13:28 → MED 12-11 14:43
PROVIDERS: ADMIT Hospitalist; ATTEND Internal Medicine
PROC: 30233N1 Transfusion of Nonautologous Red Blood Cells into Peripheral Vein, Percutaneous Approach (ICD-10-PCS; principal; 2016-12-08)
DX: D59.9 Acquired hemolytic anemia, unspecified (principal); J18.9 Pneumonia, unspecified organism; I50.43 Acute on chronic combined systolic (congestive) and diastolic (congestive) heart failure; N17.9 Acute kidney failure, unspecified; I48.92 Unspecified atrial flutter; I24.8 Other forms of acute ischemic heart disease; I11.0 Hypertensive heart disease with heart failure; C94.6 Myelodysplastic disease, not elsewhere classified; I08.1 Rheumatic disorders of both mitral and tricuspid valves; I49.5 Sick sinus syndrome; M19.90 Unspecified osteoarthritis, unspecified site; Z96.641 Presence of right artificial hip joint; E03.9 Hypothyroidism, unspecified; R00.0 Tachycardia, unspecified; R74.8 Abnormal levels of other serum enzymes; R07.9 Chest pain, unspecified; G89.29 Other chronic pain; M25.551 Pain in right hip; R09.02 Hypoxemia; D47.3 Essential (hemorrhagic) thrombocythemia; Z95.2 Presence of prosthetic heart valve; Z82.61 Family history of arthritis; Z87.891 Personal history of nicotine dependence; I25.2 Old myocardial infarction; I69.311 Memory deficit following cerebral infarction; Z79.01 Long term (current) use of anticoagulants; Z79.82 Long term (current) use of aspirin
CPT/HCPCS: 36415; 71010; 71020; 80048; 80053; 82272; 82575; 82607; 82668; 82728; 83010; 83540; 83550; 83605; 83615; 83735; 83880; 84145; 84484; 84520; 85025; 85045; 85730; 86078; 86140; 86850; 86880; 86900; 86901; 86922; 87040; 87899; 93005; 93306; 99232; 99233; A9270-GY; G0378; J0456; J0696; J1940; P9040

== ENCOUNTER 2016-12-28 16:41 | Inpatient (IN) | payer MEDICARE ==
[2016-12-28 17:53] LABS: Hematocrit 26 % (35-47); Hemoglobin 8.6 g/dl (12.0-16.0); Mean Corpuscular HGB Conc 33 g/dl (31-36); Mean Corpuscular Hemoglobin 29 pg (27-31); Mean Corpuscular Volume 89 fL (80-97); Mean Platelet Volume 8 um3 (7.4-10.4); Red Blood Count 2.94 10^6/ul (4.0-5.4); Red Cell Distribution Width 18 % (10.5-15); White Blood Count 23.3 10^3/ul (3.5-10.8)
[2016-12-28 17:54] LABS: Add Diff/Slide Review? Manual Diff Added; Comments Flag Yes
[2016-12-28 18:11] LABS: Potassium 3.9 mmol/L (3.5-5.0)
[2016-12-28 18:12] LABS: Albumin 3.5 g/dL (3.2-5.2); Calcium 8.9 mg/dL (8.6-10.3); EGFR African American 73.2 (>60); EGFR Non-African American 56.9 (>60); Globulin 3.2 g/dL (2-4); Total Bilirubin 1.1 mg/dL (0.2-1.0); Total Protein 6.7 g/dL (6.4-8.9)
[2016-12-28 18:17] LABS: Troponin I 0.07 ng/mL (<0.04)
[2016-12-28 18:29] LABS: Eosinophils % 9 % (0-6); Immature Granulocytes 10 % (0-9); Metamyelocytes % 1 % (0-2); Myelocytes % 1 % (0-1); Neutrophil % 68 % (38-83)
[2016-12-28 18:30] LABS: Polychromasia 2+
[2016-12-28 18:31] LABS: Add Path Review? YES; Hypochromasia 1+
--- NOTE | 2016-12-28 19:03 | ED ---
Daija Wilson Gabriel, scribed for Valerie Ugalde MD on 12/28/16 at 1829 . Shortness of Breath - HPI Summary HPI Summary: This patient is a 76 year old F presenting to [facility] accompanied by family with a chief complaint of SOB since earlier today. Her physical therapist saw her and said after 10 steps she was winded. She was seen here three weeks ago for the same symptoms and was admitted for CHF for 7 seven days. She has a new valve in place and was severely anemic. - History of Current Complaint Chief Complaint: EDShortnessOfBreath Time Seen by Provider: 12/28/16 17:26 Hx Obtained From: Patient, Family/Drum Operator Onset/Duration: Still Present Timing: Constant Aggrevating Factors: Movement Related History: Similar Episode - Allergy/Home Medications Allergies/Adverse Reactions: Allergies Allergy/AdvReac Type Severity Reaction Status Date / Time No Known Allergies Allergy Verified 12/07/16 19:04 Home Medications: Home Medications Aspirin EC Low Dose* [Ecotrin EC Low Dose 81 MG*] 81 mg PO DAILY 12/28/16 [ History Confirmed 12/28/16] Lisinopril TAB* [Prinivil TAB*] 5 mg PO DAILY 12/28/16 [History Confirmed ] Metoprolol Succinate XL TAB* [Toprol XL TAB*] 12.5 mg PO DAILY 12/28/16 [ History Confirmed 12/28/16] PARoxetine HCL TAB* [Paxil TAB*] 30 mg PO DAILY 12/28/16 [History Confirmed ] amLODIPine TAB* [Norvasc 5 mg TAB*] 5 mg PO DAILY 12/28/16 [History Confirmed ] PMH/Surg Hx/FS Hx/Imm Hx Previously Healthy: No Endocrine/Hematology History: Reports: Hx Blood Disorders Denies: Hx Diabetes Cardiovascular History: Reports: Hx Hypertension Musculoskeletal History: Reports: Hx Orthopedic Injury Sensory History: Denies: Hx Contacts or Glasses, Hx Legally Blind, Hx Deafness, Hx Hearing Aid Opthamlomology History: Denies: Hx Contacts or Glasses, Hx Legally Blind Neurological History: Reports: Hx CVA - Cancer History Cancer Type, 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 Hx Chemotherapy: Yes - Surgical History Surgery Procedure, Year, and Place: hip replacement-right at [facility] Infectious Disease History: No Infectious Disease History: Denies: Traveled Outside the [place] in Last 30 Days - Family History Known Family History: Negative: Diabetes - Social History Alcohol Use: None Substance Use Type: Reports: None Smoking Status (MU): Former Smoker Review of Systems Negative: Fever Positive: Shortness Of Breath All Other Systems Reviewed And Are Negative: Yes Physical Exam - Summary Physical Exam Summary: General: Well appearing, no pain distress Skin: Warm, Skin Color Reflects Adequate Perfusion, Dry Eyes: EOMI, ULYSSES ENT: Pharynx normal, TMs normal Neck: Supple, nontender Respiratory: CTA, breath sounds present, no rhonchi, no wheezes, no rales Cardiovascular: RRR, no rub, no gallop3 out of 6 murmur heard best at upper sternal border Abdomen: Soft, nontender, Non-distended, no guarding, no rebound Bowel: Present Musculoskeletal: MANUEL, No edema Neuro: Sensory/motor intact, A&Ox3, CN intact 2-12 Psych: Affect/mood appropriate Triage Information Reviewed: Yes Vital Signs On Initial Exam: Initial Vitals Temp Pulse Resp BP Pulse Ox 97.7 F 58 18 112/44 93 12/28/16 16:44 12/28/16 16:44 12/28/16 16:44 12/28/16 16:44 12/28/16 16:44 Vital Signs Reviewed: Yes - [place] Coma Scale Coma Scale Total: 15 Diagnostics - Vital Signs Vital Signs Temp Pulse Resp BP Pulse Ox 12/28/16 18:04 55 18 95 12/28/16 17:30 59 25 113/50 95 12/28/16 17:18 59 16 94 12/28/16 17:16 121/45 12/28/16 16:44 97.7 F 58 18 112/44 93 - Laboratory Lab Results: Lab Results 12/28/16 12/28/16 12/28/16 Range/Units 17:41 17:41 17:41 WBC 23.3 H (3.5-10.8) 10^3/ul RBC 2.94 L (4.0-5.4) 10^6/ul Hgb 8.6 L (12.0-16.0) g/dl Hct 26 L (35-47) % MCV 89 (80-97) fL MCH 29 (27-31) pg MCHC 33 (31-36) g/dl RDW 18 H (10.5-15) % Plt Count 1029 H D (150-450) 10^3/ul MPV 8 (7.4-10.4) um3 Absolute Neuts (auto) Pending Absolute Lymphs (auto) Pending Absolute Monos (auto) Pending Absolute Eos (auto) Pending Absolute Basos (auto) Pending Absolute Nucleated RBC Pending Neutrophils % Pending Normal RBC Morphology Pending Sodium 137 (133-145) mmol/L Potassium 3.9 (3.5-5.0) mmol/L Chloride 106 (101-111) mmol/L Carbon Dioxide 23 (22-32) mmol/L Anion Gap 8 (2-11) mmol/L BUN 19 (6-24) mg/dL Creatinine 0.95 (0.51-0.95) mg/dL Est GFR ( Amer) 73.2 (>60) Est GFR (Non-Af Amer) 56.9 (>60) BUN/Creatinine Ratio 20.0 (8-20) Glucose 97 (70-100) mg/dL Lactic Acid (0.5-2.0) mmol/L Calcium 8.9 (8.6-10.3) mg/dL Total Bilirubin 1.10 H (0.2-1.0) mg/dL AST 23 (13-39) U/L ALT 7 (7-52) U/L Alkaline Phosphatase 66 (34-104) U/L Troponin I 0.07 H* (<0.04) ng/mL B-Natriuretic Peptide 625 H ( - 100) pg/mL Total Protein 6.7 (6.4-8.9) g/dL Albumin 3.5 (3.2-5.2) g/dL Globulin 3.2 (2-4) g/dL Albumin/Globulin Ratio 1.1 (1-3) 12/28/ Range/Units 17:41 WBC (3.5-10.8) 10^3/ul RBC (4.0-5.4) 10^6/ul Hgb (12.0-16.0) g/dl Hct (35-47) % MCV (80-97) fL MCH (27-31) pg MCHC (31-36) g/dl RDW (10.5-15) % Plt Count (150-450) 10^3/ul MPV (7.4-10.4) um3 Absolute Neuts (auto) Absolute Lymphs (auto) Absolute Monos (auto) Absolute Eos (auto) Absolute Basos (auto) Absolute Nucleated RBC Neutrophils % Normal RBC Morphology Sodium (133-145) mmol/L Potassium (3.5-5.0) mmol/L Chloride (101-111) mmol/L Carbon Dioxide (22-32) mmol/L Anion Gap (2-11) mmol/L BUN (6-24) mg/dL Creatinine (0.51-0.95) mg/dL Est GFR ( Amer) (>60) Est GFR (Non-Af Amer) (>60) BUN/Creatinine Ratio (8-20) Glucose (70-100) mg/dL Lactic Acid 0.8 (0.5-2.0) mmol/L Calcium (8.6-10.3) mg/dL Total Bilirubin (0.2-1.0) mg/dL AST (13-39) U/L ALT (7-52) U/L Alkaline Phosphatase (34-104) U/L Troponin I (<0.04) ng/mL B-Natriuretic Peptide ( - 100) pg/mL Total Protein (6.4-8.9) g/dL Albumin (3.2-5.2) g/dL Globulin (2-4) g/dL Albumin/Globulin Ratio (1-3) Result Diagrams: 12/28/16 17:41 12/28/16 17:41 Lab Statement: Any lab studies that have been ordered have been reviewed, and results considered in the medical decision making process. - Radiology No standard instances Xray Interpretation: Positive (See Comments) Radiology Interpretation Completed By: ED Physician - chf - EKG 18:02 Cardiac Rate: Bradycardia EKG Rhythm: Sinus Bradycardia EKG Interpretation: 2 PACs, no ST elevation or Q Course/Dx - Course Course Of Treatment: There is clinical concern for CHF. 76 yo female with myelodysplastic disorder, anemia and recent valve replacement with subsequent chf back with acute sxms of chf,case discussed with Dr. Colvin for admission - Diagnoses Provider Diagnoses: CHF (congestive heart failure), Myeloproliferative disorder - Physician Notifications Discussed Care of Patient With: Markel Colvin Time Discussed With Above Provider: 18:41 Instructed by Provider To: Other - We discussed patient care with Dr. Colvin, hospitalist and they have agreed to admit the patient. Discharge - Discharge Plan Condition: Stable Disposition: ADMITTED TO [facility] Referrals: Rosalee Plunkett MD [Primary Care Provider] - The documentation as recorded by the Daija torres Gabriel accurately reflects the service I personally performed and the decisions made by me, Valerie Ugalde MD.
--- NOTE | 2016-12-28 19:03 | RAD ---
INDICATION: Shortness of breath and hypoxia COMPARISON: Chest x-ray dated December 08, 2016 TECHNIQUE: PA and lateral views of the chest were obtained. FINDINGS: Similar the prior chest x-ray there is moderate cardiomegaly. There has been interval worsening of patchy densities obscuring much of the right lung and to a lesser extent at the mid-level and lower left lung. There is bibasilar costophrenic angle blunting. Visualized bones are normal for the patient's age. There is no radiographic evidence of free air beneath the diaphragm IMPRESSION: IN THE CORRECT CLINICAL SETTING CHEST X-RAY FINDINGS ARE MOST CONSISTENT WITH CARDIOGENIC PULMONARY EDEMA WITH WORSENING AERATION COMPARED TO THE DECEMBER 08, 2016 CT EXAMINATION. SECONDARY DIAGNOSTIC CONSIDERATION WOULD BE PNEUMONIA THERE APPEAR TO BE AIR BRONCHOGRAMS AT THE MEDIAL RIGHT LOWER LUNG.
[2016-12-28] MEDS ORDERED: Acetaminophen TAB* 325 MG PO PRN (19:07)
[2016-12-28] MEDS ORDERED: Piperacillin/Tazobac ADVAN(*) 3.375 GM in NS 0.9% 100 ML* 100 ML IVPB ONE (19:07)
[2016-12-28] MEDS ORDERED: Ondansetron INJ* 2 MG/ML VIAL IV PRN (19:07)
[2016-12-28] MEDS ORDERED: NS 0.9% 1000 ML* 1,000 ML IV SCH (19:15)
[2016-12-28] MEDS ORDERED: Iodixanol* (CONTRAST) 320 MG/ML 100 ML SDV IV ONE (19:16)
[2016-12-28] MEDS ORDERED: Albuterol 2.5 MG/3 ML NEB.SOL* (0.083%) INH PRN (19:16)
[2016-12-28] MEDS ORDERED: Zosyn per Pharmacy* NOTE FOLLOW UP SCH (20:00)
[2016-12-28] MEDS ORDERED: NS 0.9% 100 ML* 100 ML ONE (20:00)
--- NOTE | 2016-12-28 20:50 | RAD ---
INDICATION: Recurrent pneumonia COMPARISON: Same day chest x-ray and chest x-ray dated December 08, 2016. TECHNIQUE: Axial source images of the chest were acquired after the injection of intravenous contrast from just above the lung apices to the base of the diaphragm. Coronal and sagittal reconstructed images were acquired. FINDINGS: The heart is mildly enlarged exceeding the diameter of the thorax by more than 50%. There is no large pericardial effusion. A prosthetic aortic valve is noted. There is coarse calcification at the mitral valve. Enlarged lymph nodes are seen in the mediastinum and bilateral hero. Pulp Bleacher enlarged lymph nodes are as follows: There is a preaortic lymph node measuring 1.6 x 2.4 cm (image 21 of 65). At the anterior right of midline trachea there is a conglomeration of lymph nodes measuring 2.0 x 3.3 cm. The subcarinal lymph node measures approximately 1.6 x 3.8 cm. There is widespread groundglass density predominantly involving the right lung and the left lower lobe but there is involvement of the lower left upper lobe as well. There is a small right pleural effusion. There is interlobular septal thickening. Degenerative changes of the thoracic spine include loss of intervertebral disc height. Surgical clips in the gallbladder fossa are consistent with prior cholecystectomy. IMPRESSION: The constellation of findings described above are most indicative of cardiogenic pulmonary edema. The differential diagnosis also includes pneumonitis , infectious pneumonia or ARDS.
--- NOTE | 2016-12-28 21:35 | HP ---
CC: Dr. Plunkett; Dr. Betancourt * HISTORY AND PHYSICAL: DATE OF ADMISSION: 12/28/16 PRIMARY CARE PROVIDER: Dr. Plunkett. CONSULTING ONCOLOGIST: Dr. Betancourt. ATTENDING PHYSICIAN WHILE IN THE HOSPITAL: Dr. Donell Azevedo * (report dictated by Semaj Sandhu NP). CHIEF COMPLAINT: 1. Cough. 2. Shortness of breath. 3. Hypoxia. HISTORY OF PRESENTING ILLNESS: Ms. Dunn is a 76-year-old female patient, she has a history of hypertension, she has a recent aortic valve replacement at [facility], history of CVA, history of myeloproliferative disorder, arthritis , anemia, and AFib/Aflutter. She comes in. She recently was discharged here on the of this month, just a couple of weeks ago for pneumonia. She was treated here for about 5 days. She said she was initially doing well but over the last 3 days, the daughter has noted a progressive decline in the patient's health, particularly with her breathing. She has been noted to be more short of breath particularly with exertion. They have a home O2 monitor and they noticed that she has been hypoxic with ambulation. They have also noted that she was hypoxic even at rest particularly today. They had PT come into the house today. They evaluated her and she took about 10 steps, they were checking her oxygen levels and it was dropped down into the 80s. They called the patient's primary and they recommended her coming to the hospital. She said she has had a dry persistent cough, it has been productive sometimes, but not all the time. She denied having any fever or chills. She says that she has noticed that she is more short of breath, she cannot really get a a good deep breath, and she denies having any chest discomfort. She says that she has not had any abdominal pain. There has been no nausea or vomiting and she denies having any arthralgias or myalgias or recent sick contacts. She was concerned, came into the ER, was found that it looked like she had a worsening pneumonia on her right side. She had a thrombocytosis. In addition to this, appeared to be having increasing white count, so the hospitalist service was asked to evaluate for admission. PAST MEDICAL HISTORY: Significant for: 1. Hypertension. 2. Aortic stenosis. 3. CVA. 4. Myeloproliferative disorder. 5. AFib/Aflutter. 6. Arthritis. 7. Anemia. PAST SURGICAL HISTORY: 1. She has had a TAVR. 2. She has had back surgery. 3. She has had a right total hip arthroplasty. MEDICATIONS: Her home meds according to her recall: 1. Aspirin 81 mg daily. 2. Paxil 30 mg daily. 3. Lisinopril 5 mg daily. 4. Amlodipine 5 mg daily. 5. BuSpar 5 mg p.o. t.i.d. 6. Toprol-XL 12.5 mg p.o. daily. 7. Synthroid 150 mcg p.o. daily. 8. Lipitor 40 mg daily. 9. Apixaban 5 mg p.o. b.i.d. 10. Allopurinol 300 mg p.o. daily. 11. Jakafi; she is supposed to be restarting that but that has been on hold since the last hospitalization. ALLERGIES TO MEDICATIONS: Include no known drug allergies. FAMILY HISTORY: The mother had a history of arthritis and father lived to the age of 90; she says he of old age. SOCIAL HISTORY: She does not smoke. She does not drink. Surrogate decision maker is her daughter. REVIEW OF SYSTEMS: There is no documented fever. She denied having any significant weight change. There was no double vision. There was no ear discharge. She denies having any rhinorrhea. There was no sore throat. No thyroid enlargement. She denies having any chest pain. There was no orthopnea. There was no nocturnal dyspnea. There was no abdominal pain. No nausea, no vomiting. No dysuria, no frequency. No seizure, no loss of consciousness. No pruritus and no skin ulcerations. Review of 14 systems completed, all others negative. PHYSICAL EXAMINATION GENERAL: At this time, Ms. Dunn is a 76-year-old female patient; she appears to be well-nourished, well-developed. She is sitting in the ER stretcher. She appears to be in a mild amount of respiratory distress. She is breathing in the mid 20s, otherwise appears well-nourished, well-developed. VITAL SIGNS: Blood pressure 113/50, pulse 57, respirations 18, O2 sat 95%, temperature 97.7. HEENT: Head is atraumatic. Eyes: EOMs are intact. Sclerae anicteric and not pale. Throat: Oral mucosa appears to be moist. No oropharyngeal erythema. NECK: Supple. LUNGS: She did have crackles noted in the right side. She had equal diaphragmatic expansion. HEART: Sounds S1, S2. Regular rate and rhythm. No murmurs, rubs, or gallops heard. ABDOMEN: Soft, flat, nontender. Bowel sounds present. EXTREMITIES: Pulses were 2+ throughout. No peripheral edema. She is moving all 4 extremities with 5/5 strength. NEUROLOGICAL: The patient is awake, alert, and oriented x3. No gross focal deficits. SKIN: Intact. DIAGNOSTIC STUDIES/LAB DATA: WBC of 23.3, RBC of 2.94, hemoglobin 8.6, hematocrit 26, platelet count of 1029. Sodium 137, potassium 3.9, chloride of 106, bicarb of 23, BUN 19, creatinine 0.95, glucose 97, lactate 0.8, calcium 8.9. Total bili 1.0, AST 23, ALT 7, alk phos 56. Troponin 0.07, which is near her baseline and she had a albumin of 3.5. She had a chest x-ray obtained today, which revealed in the correct clinical setting, chest x-ray findings that are most consistent with cardiogenic pulmonary edema with worsened aeration compared to 12/08/16 examination, secondary diagnostic criteria would include pneumonia as there appears to bronchograms in the medial right lower lung. She had an EKG obtained today as well, which shows a sinus bradycardia with a PAC, rate of 54, no ST elevations or T-wave inversions, reviewed to the previous EKG; it is similar. Old medical records were reviewed. ASSESSMENT AND PLAN: Ms. Dunn is a 76-year-old female patient coming into the ER today with complaints of worsening cough, shortness of breath, hypoxia, and on evaluation, found to have possible pneumonia. We were asked to evaluate for admission. She will be admitted under inpatient status for: 1. Pneumonia. I suspect that the white count is going up, she is complaining more of a cough, progressive worsening shortness of breath, her BNP is 625. However, I do feel that with her cough and the white count going up, this is probably more consistent with pneumonia. Because of the recent hospitalization , we will put her on Zosyn and azithromycin. We will get legionella antigen, Streptococcus pneumoniae antigen. I have ordered flutter valve, p.r.n. nebs, steroid. In addition to this, I am also going to get a CT of the chest and I have ordered p.r.n. nebulizers as well. We will try to get a sputum culture if possible and again we will check flu swab. I am also going to get a procalcitonin as well and we will continue to follow her closely. 2. Hypertension. In the setting of acute illness, I am going to continue her beta rigoberto. We will hold her lisinopril and Norvasc. 3. Aortic valve replacement. Continue her current medical regimen. She is on Eliquis, we will continue. 4. Atrial fibrillation/atrial flutter. Continue the beta rigoberto with the Eliquis. 5. Elevated platelet count. I did touch base with Dr. Betancourt, who will be evaluating the patient in the morning. She is on Eliquis and we will continue her aspirin. We will follow. This is chronically elevated but this has probably continued to elevate because of a reactive inflammatory reaction secondary to pneumonia, but we will follow. 6. Anemia. H and H is close to her baseline. We will follow. 7. Myeloproliferative disorder. In the setting of possible acute infection, we will hold the Jakafi and Dr. Betancourt will be consulting. 8. DVT prophylaxis. She is on Eliquis. 9. Fluids, electrolytes, nutrition. She can have a heart-healthy diet. 10. Code status. Full code. TIME SPENT: On the admission was 60 minutes; greater than half the time was spent [id number] with the patient obtaining my history and physical, other half of the time spent going over the plan of care with the patient and implementing plan of care. I did discuss plan of care with my attending, Dr. Azevedo; he is in agreement. SEMAJ SANDHU, VEL [id number]/[facility] #: [id number] DENISE
[2016-12-28] MEDS: predniSONE TAB* 20 MG PO SCH (21:42)
[2016-12-28] MEDS: Azithromycin IV(*) 500 MG in NS 0.9% 250 ML* 250 ML IVPB SCH (21:42)
[2016-12-28] MEDS: Apixaban* 5 MG TAB PO SCH (21:42)
[2016-12-28] MEDS: busPIRone TAB* 5 MG PO SCH (21:42)
[2016-12-28] MEDS ORDERED: Furosemide IV* 10 MG/ML 10 ML VIAL (100 MG) IV ONE (23:00)
[2016-12-28] MEDS ORDERED: Furosemide IV* 10 MG/ML VIAL (40 MG) ONE (23:06)
--- NOTE | 2016-12-28 23:10 | PN ---
Progress Note - Progress Note Date of Service: 12/28/16 Note: Mrs Dunn is a 76YO female w/ complex HX outlined in her H&P presenting with a constellation of symptoms (SOB, fatigue, cough) and evaluation consistent with either pneumonia or CHF. She was given a fluid bolus and initiated on IV ABX in ED. After arriving to the floor, her SOB increased significantly and her oxygen requirement increased from 3L NC to 10L oxymask. She denies chest pain, palpitations, F/C, and light-headedness. She did have some dry heaves with production of slightly blood tinged saliva. general: overweight elderly white female, NAD lungs: fine crackles in lower 3/4 R lung field and lower 1/2 L lung field; no accessory muscle use CV: RRR abdomen: SNTND extremities: W&D w/o edema recent ECHO showed EF <65% w/ abnormal diastolic function assessment: plan acute diastolic HF : 40mg furosemide now, 20mg 0800 & 1200 daily thereafter : strict I&Os : daily weights : continue IV ABX : no IVFs : close monitoring
[2016-12-28] MEDS: ZOSYN 3.375 GM Q8H per EXTENDED INFUSION IVPB SCH ×2 (23:48)
[2016-12-29] MEDS: Levothyroxine TAB* 150 MCG TAB PO SCH (05:29)
[2016-12-29] MEDS: busPIRone TAB* 5 MG PO SCH ×3 (08:04→20:57)
[2016-12-29] MEDS: ZOSYN 3.375 GM Q8H per EXTENDED INFUSION IVPB SCH ×6 (08:04→23:59)
[2016-12-29] MEDS: Allopurinol TAB* 300 MG PO SCH (08:04)
[2016-12-29] MEDS: Aspirin EC Low Dose* 81 MG TAB.EC PO SCH (08:04)
[2016-12-29] MEDS: predniSONE TAB* 20 MG PO SCH (08:04)
[2016-12-29] MEDS: PARoxetine HCL TAB* 10 MG PO SCH (08:04)
[2016-12-29] MEDS: Atorvastatin* 40 MG TAB PO SCH (08:04)
[2016-12-29] MEDS: Metoprolol Succinate XL TAB* 25 MG PO SCH (08:34)
[2016-12-29] MEDS ORDERED: Metoprolol Succinate XL TAB* 25 MG PO SCH (09:00)
[2016-12-29] MEDS: Apixaban* 5 MG TAB PO SCH ×2 (09:11→20:57)
--- NOTE | 2016-12-29 09:50 | PN ---
Progress Note - Progress Note Date of Service: 12/29/16 SOAP: Subjective: []Feeling better today. Brought to ER by daughter for progressive SOB. Eating well. No pain. Acetaminophen (Tylenol Tab*) 650 mg PO Q4H PRN PRN Reason: FEVER/PAIN Albuterol (Ventolin 2.5 Mg/3 Ml Neb.Rita*) 2.5 mg INH Q2H PRN PRN Reason: SOB/WHEEZING Last Admin: 12/28/16 22:24 Dose: 2.5 mg Allopurinol (Zyloprim Tab*) 300 mg PO DAILY [facility] Last Admin: 12/29/16 08:04 Dose: 300 mg Apixaban (Eliquis*) 5 mg PO BID [facility] Last Admin: 12/29/16 09:11 Dose: 5 mg Aspirin (Aspirin Ec Low Dose*) 81 mg PO DAILY [facility] Last Admin: 12/29/16 08:04 Dose: 81 mg Atorvastatin Calcium (Lipitor*) 40 mg PO DAILY [facility] Last Admin: 12/29/16 08:04 Dose: 40 mg Buspirone HCl (Buspar Tab*) 5 mg PO TID [facility] Last Admin: 12/29/16 08:04 Dose: 5 mg Furosemide (Lasix Iv*) 20 mg IV 0800,1200 [facility] Azithromycin 500 mg/ Sodium (Chloride) 250 mls @ 250 mls/hr IVPB Q24H [facility] Last Admin: 12/28/16 21:42 Dose: 250 mls/hr Piperacillin Sod/Tazobactam (Sod 3.375 gm/ Sodium Chloride) 100 mls @ 25 mls/ hr IVPB Q8H [facility] Last Admin: 12/29/16 08:04 Dose: 25 mls/hr Levothyroxine Sodium (Synthroid Tab*) 150 mcg PO DAILY@0600 [facility] Last Admin: 12/29/16 05:29 Dose: 150 mcg Metoprolol Succinate (Toprol Xl Tab*) 12.5 mg PO DAILY [facility] Last Admin: 12/29/16 08:34 Dose: Not Given Ondansetron HCl (Zofran Inj*) 4 mg IV Q6H PRN PRN Reason: NAUSEA Last Admin: 12/28/16 22:38 Dose: 4 mg Paroxetine HCl (Paxil Tab*) 30 mg PO DAILY [facility] Last Admin: 12/29/16 08:04 Dose: 30 mg Pharmacy Consult (Zosyn Per Pharmacy*) 1 note FOLLOW UP .ZOSYN PER PHARMACY [facility] Prednisone (Deltasone Tab*) 40 mg PO DAILY [facility] Last Admin: 12/29/16 08:04 Dose: 40 mg Objective: [] Vital Signs Temp Pulse Resp BP Pulse Ox 97.2 F 47 20 96/54 95 12/29/16 07:45 12/29/16 07:45 12/29/16 07:45 12/29/16 07:54 12/29/16 07:45 HEENT - Negative Lungs: I do not hear any crackles, no wheezing, on oxygen. S1S2, 80s on exam +Spleen, non tender and good BS Tr edema Neuro- conversational and pleasant. CT chest with diffuse patchy infiltrate. There is medistinal LAD up to 2.5 cm, no focal pulmonary lesions. Laboratory Results - last 24 hr 12/28/16 12/28/16 12/28/16 17:41 17:41 17:41 WBC 23.3 H RBC 2.94 L Hgb 8.6 L Hct 26 L MCV 89 MCH 29 MCHC 33 RDW 18 H Plt Count 1029 H D MPV 8 Immature Gran % (Auto) 10 H Absolute Neuts (auto) 18.2 H Absolute Lymphs (auto) 0.7 L Absolute Monos (auto) 2.1 H Absolute Eos (auto) 2.1 H Absolute Basos (auto) 0.2 Absolute Nucleated RBC Not Reportable Neutrophils % 68 Band Neutrophils % 8 Lymphocytes % 3 L Monocytes % 9 Eosinophils % 9 H Basophils % 1 Metamyelocytes % 1 Myelocytes % 1 Normal RBC Morphology Not Reportable Polychromasia 2+ Hypochromasia 1+ Acanthocytes (Spur) 1+ Sodium 137 Potassium 3.9 Chloride 106 Carbon Dioxide 23 Anion Gap 8 BUN 19 Creatinine 0.95 Est GFR ( Amer) 73.2 Est GFR (Non-Af Amer) 56.9 BUN/Creatinine Ratio 20.0 Glucose 97 Lactic Acid Calcium 8.9 Total Bilirubin 1.10 H AST 23 ALT 7 Alkaline Phosphatase 66 Troponin I 0.07 H* B-Natriuretic Peptide 625 H Total Protein 6.7 Albumin 3.5 Globulin 3.2 Albumin/Globulin Ratio 1.1 Procalcitonin Influenza A (Rapid) Influenza B (Rapid) 12/28/16 12/28/16 12/28/16 17:41 17:41 20:22 WBC RBC Hgb Hct MCV MCH MCHC RDW Plt Count MPV Immature Gran % (Auto) Absolute Neuts (auto) Absolute Lymphs (auto) Absolute Monos (auto) Absolute Eos (auto) Absolute Basos (auto) Absolute Nucleated RBC Neutrophils % Band Neutrophils % Lymphocytes % Monocytes % Eosinophils % Basophils % Metamyelocytes % Myelocytes % Normal RBC Morphology Polychromasia Hypochromasia Acanthocytes (Spur) Sodium Potassium Chloride Carbon Dioxide Anion Gap BUN Creatinine Est GFR ( Amer) Est GFR (Non-Af Amer) BUN/Creatinine Ratio Glucose Lactic Acid 0.8 Calcium Total Bilirubin AST ALT Alkaline Phosphatase Troponin I B-Natriuretic Peptide Total Protein Albumin Globulin Albumin/Globulin Ratio Procalcitonin < 0.1 Influenza A (Rapid) Negative Influenza B (Rapid) Negative 12/28/16 12/29/16 20:58 00:13 WBC RBC Hgb Hct MCV MCH MCHC RDW Plt Count MPV Immature Gran % (Auto) Absolute Neuts (auto) Absolute Lymphs (auto) Absolute Monos (auto) Absolute Eos (auto) Absolute Basos (auto) Absolute Nucleated RBC Neutrophils % Band Neutrophils % Lymphocytes % Monocytes % Eosinophils % Basophils % Metamyelocytes % Myelocytes % Normal RBC Morphology Polychromasia Hypochromasia Acanthocytes (Spur) Sodium Potassium Chloride Carbon Dioxide Anion Gap BUN Creatinine Est GFR ( Amer) Est GFR (Non-Af Amer) BUN/Creatinine Ratio Glucose Lactic Acid Calcium Total Bilirubin AST ALT Alkaline Phosphatase Troponin I 0.04 H* 0.04 H* B-Natriuretic Peptide Total Protein Albumin Globulin Albumin/Globulin Ratio Procalcitonin Influenza A (Rapid) Influenza B (Rapid) Assessment: []76 year old with a history of essential thrombocytosis treated with Jakafi. Recent hospitalization with SOB and sever anemia, thought to have pneumonia and anemia that was multi factorial (chronic disease, hydrolysis across valve, from Jakafi). She has multiple co-morbidities including dementia, aortic valve diseases s/p TAVR. Jakafi had been held, restarted at low dose last week from [facility] for a platelet count of over 1,100. Differential for pulmonary infiltrates is broad. She has some CHF, is at risk for opportunistic infections on Jakafi including PCP, there are case reports of pneumonitis both on Jakafi and in withdrawal, thought to be a cytokine release syndrome. Plan: []1. SOB. Agree with antibiotics. Will hold Jakafi and given that she is improved symptomatically, would not start steroids. Will check LDH for PCP though lack of high fever make unlikely. Oxygen as needed. 2. ET. No more Jakafi. It is difficult to treat her thrombocytosis at this time. Hydroxyurea can be given but will exacerbate her anemia. Given other medical conditions, it is unclear we will re-start any therapy for her thrombocytosis. With platelets over 1000K she is at risk for acquired von Willabrand's disease as well as thrombosis. Continue ASA and Apixaban at this time. Will follow. 3. Anemia. Given difficulty over last admission with her valve, Tx to Hgb > 9.0.
[2016-12-29] MEDS: Furosemide IV* 10 MG/ML 10 ML VIAL (100 MG) IV SCH ×2 (10:32→11:47)
--- NOTE | 2016-12-29 10:53 | PN ---
Subjective Date of Service: 12/29/16 Interval History: Patient seen and examined at bedside. Kris fever, chills, shortness of breath, chest discomfort, N/V/D. Pt states that she uses oxygen at home 2L, Pt is requiring 3L via NC here. Discussed with Pt that she may need a blood transfusion and she is agreeable, will discuss with family also. Tele: Sinus martha to sinus arrhythmia, rate 50's Family History: Unchanged from Admission Social History: Unchanged from Admission Past Medical History: Unchanged from Admission Objective Active Medications: Acetaminophen (Tylenol Tab*) 650 mg PO Q4H PRN Reason: FEVER/PAIN Albuterol (Ventolin 2.5 Mg/3 Ml Neb.Rita*) 2.5 mg INH Q2H PRN Reason: SOB/ WHEEZING Allopurinol (Zyloprim Tab*) 300 mg PO DAILY COUNTS [facility]CLUDE 234 BEDS AT [facility] Apixaban (Eliquis*) 5 mg PO BID COUNTS INCLUDE 234 BEDS AT THE [facility] Aspirin (Aspirin Ec Low Dose*) 81 mg PO DAILY [facility]S [facility]CLUDE 234 BEDS AT [facility] Atorvastatin Calcium (Lipitor*) 40 mg PO DAILY [facility]S [facility]CLUDE 234 BEDS AT THE [facility] Buspirone HCl (Buspar Tab*) 5 mg PO TID [facility] Furosemide (Lasix Iv*) 20 mg IV 0800,1200 COUNTS [facility]CLUDE 234 BEDS AT [facility] Azithromycin 500 mg/ Sodium (Chloride) 250 mls @ 250 mls/hr IVPB Q24H [facility] Piperacillin Sod/Tazobactam (Sod 3.375 gm/ Sodium Chloride) 100 mls @ 25 mls/ hr IVPB Q8H COUNTS INCLUDE 234 BEDS AT THE [facility] Levothyroxine Sodium (Synthroid Tab*) 150 mcg PO DAILY@0600 COUNTS [facility]CLUDE 234 BEDS AT [facility] Metoprolol Succinate (Toprol Xl Tab*) 12.5 mg PO DAILY [facility]S [facility]CLUDE 234 BEDS AT [facility] Ondansetron HCl (Zofran Inj*) 4 mg IV Q6H PRN Reason: NAUSEA Paroxetine HCl (Paxil Tab*) 30 mg PO DAILY [facility]S [facility]CLUDE 234 BEDS AT [facility] Pharmacy Consult (Zosyn Per Pharmacy*) 1 note FOLLOW UP .ZOSYN PER PHARMACY [facility] Prednisone (Deltasone Tab*) 40 mg PO DAILY COUNTS [facility]CLUDE 234 BEDS AT [facility] Vital Signs 12/28/16 12/28/16 12/28/16 19:27 19:30 20:40 Temperature 98.1 F Pulse Rate 56 58 65 Respiratory 23 27 26 Rate Blood Pressure 130/51 135/55 128/38 (mmHg) O2 Sat by Pulse 92 93 94 Oximetry 12/28/16 12/28/16 12/28/16 22:00 22:25 22:53 Temperature Pulse Rate 71 70 Respiratory 28 20 36 Rate Blood Pressure 115/43 (mmHg) O2 Sat by Pulse 93 95 Oximetry 12/29/16 12/29/16 12/29/16 00:17 01:08 01:12 Temperature 97.8 F Pulse Rate 58 Respiratory 28 32 Rate Blood Pressure 98/33 (mmHg) O2 Sat by Pulse 95 95 91 Oximetry 12/29/16 12/29/16 12/29/16 02:31 03:22 06:00 Temperature 97.9 F Pulse Rate 64 Respiratory 28 30 28 Rate Blood Pressure 106/38 (mmHg) O2 Sat by Pulse 96 93 96 Oximetry 12/29/16 12/29/16 12/29/16 07:45 07:54 08:00 Temperature 97.2 F Pulse Rate 47 Respiratory 20 22 Rate Blood Pressure 92/38 96/54 (mmHg) O2 Sat by Pulse 95 Oximetry 12/29/16 10:27 Temperature Pulse Rate Respiratory Rate Blood Pressure 94/52 (mmHg) O2 Sat by Pulse Oximetry Oxygen Devices in Use Now: Nasal Cannula - 3L Appearance: NAD, sitting up in a chair Ears/Nose/Mouth/Throat: Mucous Membranes Moist Respiratory: - - Lungs with crackles 1/[address] up right side and left base Cardiovascular: RRR Abdominal: NL Sounds; No Tenderness; No Distention Extremities: No Edema Skin: No Rash or Ulcers Neurological: Alert and Oriented x 3, NL Muscle Strength and Tone Lines/Tubes/Other Access: Clean, Dry and Intact Peripheral IV - site benign Nutrition: Taking PO's Result Diagrams: 12/29/16 11:37 12/28/16 17:41 Additional Lab and Data: Microbiology and Other Data: Microbiology 12/28/16 20:50 Legionella Urinary Antigen - Final Urine Negative Legionella Streptococcus pneumoniae Ag Screen - Final Negative S. pneumo Antigen 12/28/16 20:14 Influenza Types A,B Antigen (DAYNE) - Final Nasal Specimen received for Influenza A/B Molecular testing Assess/Plan/Problems-Billing Assessment: Ms. Dunn is a 76 yo female with PMH significant for HTN, s/p AVR, CVA, Afib /flutter, anemia, arthritis, CHF and myeloprolifeative disorder who presented to the emergency room with complaints of cough, SOB, hypoxia and was found to have pneumonia. - Patient Problems (1) Pneumonia Code(s): J18.9 - PNEUMONIA, UNSPECIFIED ORGANISM SNOMED Code(s): 071824001 Comment: - Leukocytosis, afebrile - Strep pneumo and legionella urine antigens negative. - Procalcitonin <0.01 - Sputum culture pending - Ulises placed Pt at risk for PCP, will check LDH - Continue Zosyn and azithromycin (2) CHF (congestive heart failure) Code(s): I50.9 - HEART FAILURE, UNSPECIFIED SNOMED Code(s): 61126727 Comment: - Acute on chronic diastolic - Received IV lasix overnight - 12/07/16 - Echo shows hyperdynamic small LV. Aortic valve functioning appropriately - Continue low dose metoprolol - Daily weights and strict I+O's - Hold this AM's lasix and re-eval after blood (3) Elevated troponin Code(s): R74.8 - ABNORMAL LEVELS OF OTHER SERUM ENZYMES SNOMED Code(s): 209086075 Comment: - Troponin 0.07, 0.04 x2 - Denies chest discomfort - Suspect demand ischemia in the setting of PNA (4) Thrombocytosis Comment: - Heme consult, appreciate input - Stop Ulises - Continue ASA and Eliquis as she is at risk for thrombosis (5) Anemia Code(s): D64.9 - ANEMIA, UNSPECIFIED SNOMED Code(s): 117199635 Comment: - Hgb 8.6 yesterday - HH pending for today - Likely multifactorial, appreciate hematology consult - No evidence of bleeding - Goal Hgb >9, will get 1 unit PRBCs today per Dr. Betancourt (6) HTN (hypertension) Code(s): I10 - ESSENTIAL (PRIMARY) HYPERTENSION SNOMED Code(s): 26324254 Comment: - SBP 90-110's - Hold lisinopril and norvasc in setting of acute illness - Continue metoprolol with hold parameters (7) Atrial flutter Code(s): I48.92 - UNSPECIFIED ATRIAL FLUTTER SNOMED Code(s): 5150917 Comment: - Sinus bradycardia - Continue eliquis and metoprolol (8) H/O aortic valve replacement Code(s): Z95.2 - PRESENCE OF PROSTHETIC HEART VALVE SNOMED Code(s): 5850255496929 Comment: - 12/07/16 Echo confirms that valve is functioning properly. (9) Myeloproliferative disorder Code(s): D47.1 - CHRONIC MYELOPROLIFERATIVE DISEASE SNOMED Code(s): 638810500 Comment: - Appreciate Hematology consult. - Stop jakafi, anticipate this will improve anemia but may worsen thrombocytosis. - Patient will continue to follow with hematology outpatient. (10) DVT prophylaxis Code(s): XNA4852 - SNOMED Code(s): 833903288 Comment: - Continue eliquis (11) Full code status Code(s): Z78.9 - OTHER SPECIFIED HEALTH STATUS SNOMED Code(s): 855093146 Status and Disposition: Inpatient. Discharge to home when medically stable.
[2016-12-29 11:50] LABS: Comments Flag Yes; Hematocrit 26 % (35-47); Hemoglobin 8.2 g/dl (12.0-16.0)
[2016-12-29] MEDS: Azithromycin IV(*) 500 MG in NS 0.9% 250 ML* 250 ML IVPB SCH (21:31)
[2016-12-30] MEDS: Levothyroxine TAB* 150 MCG TAB PO SCH (05:08)
[2016-12-30 05:55] LABS: Hematocrit 26 % (35-47); Hemoglobin 8.4 g/dl (12.0-16.0); Mean Corpuscular HGB Conc 33 g/dl (31-36); Mean Corpuscular Hemoglobin 29 pg (27-31); Mean Corpuscular Volume 88 fL (80-97); Mean Platelet Volume 7 um3 (7.4-10.4); Red Blood Count 2.94 10^6/ul (4.0-5.4); Red Cell Distribution Width 19 % (10.5-15)
[2016-12-30 06:54] LABS: Comments Flag Yes
[2016-12-30 06:55] LABS: Add Diff/Slide Review? Slide Review Added
[2016-12-30 07:30] LABS: Eosinophils % 1 % (0-6); Hypochromasia 1+; Immature Granulocytes 9 % (0-9); Myelocytes % 1 % (0-1); Neutrophil % 82 % (38-83)
[2016-12-30 07:31] LABS: Polychromasia 1+
[2016-12-30] MEDS: busPIRone TAB* 5 MG PO SCH ×3 (09:17→21:13)
[2016-12-30] MEDS: Atorvastatin* 40 MG TAB PO SCH (09:17)
[2016-12-30] MEDS: Allopurinol TAB* 300 MG PO SCH (09:17)
[2016-12-30] MEDS: Aspirin EC Low Dose* 81 MG TAB.EC PO SCH (09:17)
[2016-12-30] MEDS: Apixaban* 5 MG TAB PO SCH ×2 (09:17→21:13)
[2016-12-30] MEDS: PARoxetine HCL TAB* 10 MG PO SCH (09:17)
[2016-12-30] MEDS: ZOSYN 3.375 GM Q8H per EXTENDED INFUSION IVPB SCH ×6 (09:17→23:59)
[2016-12-30] MEDS: Metoprolol Succinate XL TAB* 25 MG PO SCH (09:35)
--- NOTE | 2016-12-30 09:51 | PN ---
Progress Note - Progress Note Date of Service: 12/30/16 SOAP: Subjective: []Feels pressure on chest, SOB with exertion. "can breath but has to be working on it". No fevers. Eating well. No pain. Acetaminophen (Tylenol Tab*) 650 mg PO Q4H PRN PRN Reason: FEVER/PAIN Albuterol (Ventolin 2.5 Mg/3 Ml Neb.Rita*) 2.5 mg INH Q2H PRN PRN Reason: SOB/WHEEZING Last Admin: 12/28/16 22:24 Dose: 2.5 mg Allopurinol (Zyloprim Tab*) 300 mg PO DAILY [facility] Last Admin: 12/30/16 09:17 Dose: 300 mg Apixaban (Eliquis*) 5 mg PO BID [facility] Last Admin: 12/30/16 09:17 Dose: 5 mg Aspirin (Aspirin Ec Low Dose*) 81 mg PO DAILY [facility] Last Admin: 12/30/16 09:17 Dose: 81 mg Atorvastatin Calcium (Lipitor*) 40 mg PO DAILY [facility] Last Admin: 12/30/16 09:17 Dose: 40 mg Buspirone HCl (Buspar Tab*) 5 mg PO TID [facility] Last Admin: 12/30/16 09:17 Dose: 5 mg Azithromycin 500 mg/ Sodium (Chloride) 250 mls @ 250 mls/hr IVPB Q24H [facility] Last Admin: 12/29/16 21:31 Dose: 250 mls/hr Piperacillin Sod/Tazobactam (Sod 3.375 gm/ Sodium Chloride) 100 mls @ 25 mls/ hr IVPB Q8H [facility] Last Admin: 12/30/16 09:17 Dose: 25 mls/hr Levothyroxine Sodium (Synthroid Tab*) 150 mcg PO DAILY@0600 [facility] Last Admin: 12/30/16 05:08 Dose: 150 mcg Metoprolol Succinate (Toprol Xl Tab*) 12.5 mg PO DAILY [facility] Last Admin: 12/30/16 09:35 Dose: Not Given Ondansetron HCl (Zofran Inj*) 4 mg IV Q6H PRN PRN Reason: NAUSEA Last Admin: 12/28/16 22:38 Dose: 4 mg Paroxetine HCl (Paxil Tab*) 30 mg PO DAILY [facility] Last Admin: 12/30/16 09:17 Dose: 30 mg Pharmacy Consult (Zosyn Per Pharmacy*) 1 note FOLLOW UP .ZOSYN PER PHARMACY [facility] Objective: [] Vital Signs Temp Pulse Resp BP Pulse Ox 97.4 F 55 22 122/47 94 12/30/16 07:26 12/30/16 07:26 12/30/16 07:26 12/30/16 07:26 12/30/16 07:26 HEENT - No thrush diffuse crackles RRR II/IV OSWALDO spleen tip, NT/ND Assessment: []76 year old with a history of essential thrombocytosis treated with Jakafi. Recent hospitalization with SOB and sever anemia, thought to have pneumonia and anemia that was multi factorial (chronic disease, hemolysis across valve, from Jakafi). She has multiple co-morbidities including dementia, aortic valve diseases s/p TAVR. Jakafi had been held, restarted at low dose last week from [facility] for a platelet count of over 1,100. Differential for pulmonary infiltrates is broad. She has some CHF, is at risk for opportunistic infections on Jakafi including PCP. I am concerned about pneumonitis secondary to Jakafi. Plan: []1. SOB. Agree with antibiotics. She is off Jakafi but breathing is a little worse today then yesterday. Will start Prednisone at 40 mg daily. 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 2. ET. No more Jakafi. It is difficult to treat her thrombocytosis at this time. Slight drop in platelet count today With platelets over 1000K she is at risk for acquired von Willabrand's disease as well as thrombosis. Continue ASA and Apixaban at this time. Will follow. 3. Anemia. Given difficulty over last admission with her valve would like to have Hgb > 9.0. No reaction to transfusion yesterday, follow today and hold on additional PRBC.
[2016-12-30] MEDS: predniSONE TAB* 20 MG PO SCH (10:39)
[2016-12-30] MEDS ORDERED: Furosemide IV* 10 MG/ML 2 ML VIAL (20 MG) IV SLOW PU ONE (17:22)
--- NOTE | 2016-12-30 17:30 | PN ---
Subjective Date of Service: 12/30/16 Interval History: This is a very pleasant 76 year old female patient, in mild respiratory distress , mild cognitive deficit, that has been admitted for SOB. CXR shows PNA, likely acute on chronic HF and underlying lung disease. Patient seen and examined, family friends at bedside. Speaking in complete sentences, does appear to be winded with increased WOB. States she feels she is having trouble catching her breath and tires easily. Denies chest pain, no headache, no fever, no chills. Significant for fatigue. Family History: Unchanged from Admission Social History: Unchanged from Admission Past Medical History: Unchanged from Admission Objective Active Medications: Acetaminophen (Tylenol Tab*) 650 mg PO Q4H PRN PRN Reason: FEVER/PAIN Albuterol/Ipratropium (Duoneb (Albuterol 2.5 Mg/Ipratropium 0.5 Mg)) 1 neb INH Q6H [facility] Allopurinol (Zyloprim Tab*) 300 mg PO DAILY [facility] Last Admin: 12/30/16 09:17 Dose: 300 mg Apixaban (Eliquis*) 5 mg PO BID [facility] Last Admin: 12/30/16 09:17 Dose: 5 mg Aspirin (Aspirin Ec Low Dose*) 81 mg PO DAILY [facility] Last Admin: 12/30/16 09:17 Dose: 81 mg Atorvastatin Calcium (Lipitor*) 40 mg PO DAILY [facility] Last Admin: 12/30/16 09:17 Dose: 40 mg Buspirone HCl (Buspar Tab*) 5 mg PO TID [facility] Last Admin: 12/30/16 13:48 Dose: 5 mg Furosemide (Lasix Iv*) 20 mg IV SLOW PU ONCE ONE Stop: 12/30/16 17:23 Azithromycin 500 mg/ Sodium (Chloride) 250 mls @ 250 mls/hr IVPB Q24H [facility] Last Admin: 12/29/16 21:31 Dose: 250 mls/hr Piperacillin Sod/Tazobactam (Sod 3.375 gm/ Sodium Chloride) 100 mls @ 25 mls/ hr IVPB Q8H [facility] Last Admin: 12/30/16 16:37 Dose: 25 mls/hr Levothyroxine Sodium (Synthroid Tab*) 150 mcg PO DAILY@0600 [facility] Last Admin: 12/30/16 05:08 Dose: 150 mcg Metoprolol Succinate (Toprol Xl Tab*) 12.5 mg PO DAILY [facility] Last Admin: 12/30/16 09:35 Dose: Not Given Ondansetron HCl (Zofran Inj*) 4 mg IV Q6H PRN PRN Reason: NAUSEA Last Admin: 12/28/16 22:38 Dose: 4 mg Paroxetine HCl (Paxil Tab*) 30 mg PO DAILY [facility] Last Admin: 12/30/16 09:17 Dose: 30 mg Pharmacy Consult (Zosyn Per Pharmacy*) 1 note FOLLOW UP .ZOSYN PER PHARMACY [facility] Prednisone (Deltasone Tab*) 40 mg PO DAILY [facility] Last Admin: 12/30/16 10:39 Dose: 40 mg Vital Signs 12/29/16 12/29/16 12/29/16 17:59 19:57 20:00 Temperature 97.9 F Pulse Rate 70 66 Respiratory 16 18 20 Rate Blood Pressure 114/46 (mmHg) O2 Sat by Pulse 92 94 Oximetry 12/29/16 12/30/16 12/30/16 23:42 00:00 03:24 Temperature 98.1 F 97.5 F Pulse Rate 65 57 Respiratory 20 20 Rate Blood Pressure 119/44 112/44 (mmHg) O2 Sat by Pulse 96 95 95 Oximetry 12/30/16 12/30/16 12/30/16 07:26 08:00 15:38 Temperature 97.4 F 98.2 F Pulse Rate 55 63 Respiratory 22 22 20 Rate Blood Pressure 122/47 118/46 (mmHg) O2 Sat by Pulse 94 91 Oximetry Oxygen Devices in Use Now: Nasal Cannula - 4LNC Appearance: Well nourished, tired, pale. Eyes: No Scleral Icterus, PERRLA Ears/Nose/Mouth/Throat: NL Teeth, Lips, Gums, Mucous Membranes Moist Neck: NL Appearance and Movements; NL JVP, Trachea Midline, No Thyroid Enlargement, Masses Respiratory: - - Accesory muscle use, mild tachypnea, increased WOB, expiratory wheeze RUL, course rales at bases Cardiovascular: NL Sounds; No Murmurs; No JVD, RRR, No Edema Abdominal: NL Sounds; No Tenderness; No Distention Lymphatic: No Cervical Adenopathy Extremities: No Edema, No Clubbing, Cyanosis Skin: No Rash or Ulcers Neurological: Alert and Oriented x 3, NL Sensation, - - Forgetful, short term cognitive deficit, otherwise appropriate Result Diagrams: 12/30/16 05:25 12/28/16 17:41 Additional Lab and Data: BNP = 625 on 12/28 Microbiology and Other Data: Microbiology 12/28/16 20:50 Legionella Urinary Antigen - Final Urine Negative Legionella Streptococcus pneumoniae Ag Screen - Final Negative S. pneumo Antigen 12/28/16 20:14 Influenza Types A,B Antigen (DAYNE) - Final Nasal Specimen received for Influenza A/B Molecular testing Sputum culture Pending Diagnostic Imaging: CHEST CT Findings 12/28/16: Cardiogenic pulmonary edema, vs. pneumonitis, vs. infectious pneumonia Assess/Plan/Problems-Billing Assessment: This is a 76 yo female with past medical hx significant for HTN, s/p TAVR, CVA, Afib/flutter, anemia, arthritis, CHF and myeloproliferative disorder that presented in the ER with SOB/hypoxia and was admitted with diagnosis of PNA. - Patient Problems (1) CHF (congestive heart failure) Code(s): I50.9 - HEART FAILURE, UNSPECIFIED SNOMED Code(s): 20970198 Comment: - Acute on chronic diastolic HF - IV lasix was held this AM? - Will give IV lasix now and redraw BNP in AM - 12/07/16 - Echo shows hyperdynamic small LV. Aortic valve functioning appropriately - Continue low dose metoprolol - Daily weights and strict I+O's - O2 via NC to keep sats >92% (2) DVT prophylaxis Code(s): KAO5857 - SNOMED Code(s): 421036214 Comment: - Continue eliquis (3) Elevated troponin Code(s): R74.8 - ABNORMAL LEVELS OF OTHER SERUM ENZYMES SNOMED Code(s): 673431544 Comment: - Troponin 0.07, 0.04 x2 - No chest pain since admission - Suspect demand ischemia in the setting of PNA - Monitor for any changes (4) Full code status Code(s): Z78.9 - OTHER SPECIFIED HEALTH STATUS SNOMED Code(s): 934707703 (5) Pneumonia Code(s): J18.9 - PNEUMONIA, UNSPECIFIED ORGANISM SNOMED Code(s): 904103129 Comment: - Leukocytosis increasing, etiology unclear if this is PNA (afebrile?) vs. effect of Jakafi, continue to monitor WBCs - Add duonebs Q6H - Flutter valve at bedside - Follow cultures, sputum pending - Adjust atbx as susceptibility becomes available if needed - Continue azithromycin and zosyn - Procalcitonin <0.01 - Continue Zosyn and azithromycin - Risk for PCP with Jakafi (on hold), appreciate further recs from hematology - LDH is elevated, however, also unclear whether this is 2/2 to PCP pneumonia vs. other etiology (6) Thrombocytosis Comment: - Hematology following - Jakafi on hold - Continue ASA and Eliquis to mitigate risk for thrombosis - Monitor PLTS = 935 today (7) Anemia Code(s): D64.9 - ANEMIA, UNSPECIFIED SNOMED Code(s): 891882461 Comment: - Hgb stable at 8.4 today - Follow CBC in AM - Goal HgB 9.0 as per Hematology, s/p 1 unit PRBCs - Appreciate input from hematology regarding further transfusions during this admission (8) Acute kidney injury Code(s): N17.9 - ACUTE KIDNEY FAILURE, UNSPECIFIED SNOMED Code(s): 82877968 Comment: - Resolved, follow BUN/creat in AM (9) Hypoxia Code(s): R09.02 - HYPOXEMIA SNOMED Code(s): 038119396 Comment: - Lasix IV now, redraw BNP in AM, address additional diuresis in AM after re-evaluation - Monitor renal function while diuresing - Strict I&Os until euvolemia achieved (10) Atrial flutter Code(s): I48.92 - UNSPECIFIED ATRIAL FLUTTER SNOMED Code(s): 6360819 Comment: - Rate stable - Continue eliquis and metoprolol (11) H/O aortic valve replacement Code(s): Z95.2 - PRESENCE OF PROSTHETIC HEART VALVE SNOMED Code(s): 4380306567598 Comment: - Last ECHO 12/07/16 with no issues, valve functioning (12) HTN (hypertension) Code(s): I10 - ESSENTIAL (PRIMARY) HYPERTENSION SNOMED Code(s): 69917565 Comment: - BP stable - Continue metoprolol with hold parameters - Hold norvasc and lisinopril for now (13) Myeloproliferative disorder Code(s): D47.1 - CHRONIC MYELOPROLIFERATIVE DISEASE SNOMED Code(s): 409176220 Comment: - Hematology following - Hold Jakafi, monitor for improving anemia and worsening thrombocytosis. Status and Disposition: Remain inpatient for management of increasing leukocytosis with IV atbx, SOB and HF. Will be DC to home vs. rehab depending on response to inpatient treatment. Counseling and/or Coordination of Care Minutes: Coordinated with patient and nursing staff. Attending: Ana Laura Redman
[2016-12-30] MEDS: Albuterol/Ipratropium NEB.SOL* Albuterol 2.5 MG/Ipratropium 0.5 MG 3 ML INH SCH (18:00)
[2016-12-30] MEDS: Azithromycin IV(*) 500 MG in NS 0.9% 250 ML* 250 ML IVPB SCH (21:19)
[2016-12-31] MEDS: Albuterol/Ipratropium NEB.SOL* Albuterol 2.5 MG/Ipratropium 0.5 MG 3 ML INH SCH ×4 (01:53→20:11)
[2016-12-31] MEDS ORDERED: Furosemide IV* 10 MG/ML VIAL (40 MG) IV STA (04:09)
[2016-12-31 05:31] LABS: Hematocrit 25 % (35-47); Hemoglobin 8.3 g/dl (12.0-16.0); Mean Corpuscular HGB Conc 33 g/dl (31-36); Mean Corpuscular Hemoglobin 29 pg (27-31); Mean Corpuscular Volume 88 fL (80-97); Mean Platelet Volume 7 um3 (7.4-10.4); Red Blood Count 2.87 10^6/ul (4.0-5.4); Red Cell Distribution Width 19 % (10.5-15)
[2016-12-31 05:32] LABS: Comments Flag Yes
[2016-12-31 05:45] LABS: Albumin 3.2 g/dL (3.2-5.2); BUN/Creatinine Ratio 24.4 (8-20); Calcium 8.5 mg/dL (8.6-10.3); EGFR African American 50.5 (>60); EGFR Non-African American 39.3 (>60); Globulin 3.1 g/dL (2-4); Potassium 3.8 mmol/L (3.5-5.0); Total Bilirubin 0.9 mg/dL (0.2-1.0); Total Protein 6.3 g/dL (6.4-8.9)
[2016-12-31] MEDS: Levothyroxine TAB* 150 MCG TAB PO SCH (06:21)
[2016-12-31] MEDS: ZOSYN 3.375 GM Q8H per EXTENDED INFUSION IVPB SCH ×4 (09:03→17:01)
[2016-12-31] MEDS: Atorvastatin* 40 MG TAB PO SCH (09:03)
[2016-12-31] MEDS: Aspirin EC Low Dose* 81 MG TAB.EC PO SCH (09:03)
[2016-12-31] MEDS: Apixaban* 5 MG TAB PO SCH ×2 (09:03→21:27)
[2016-12-31] MEDS: PARoxetine HCL TAB* 10 MG PO SCH (09:03)
[2016-12-31] MEDS: busPIRone TAB* 5 MG PO SCH ×3 (09:03→21:27)
[2016-12-31] MEDS: Allopurinol TAB* 300 MG PO SCH (09:03)
[2016-12-31] MEDS: Metoprolol Succinate XL TAB* 25 MG PO SCH (09:04)
[2016-12-31] MEDS: predniSONE TAB* 20 MG PO SCH (09:04)
--- NOTE | 2016-12-31 10:56 | PN ---
Progress Note - Progress Note Date of Service: 12/31/16 SOAP: Subjective: []Still SOB. Tried to walk yesterday and became more hypoxic, on 5 L NC today. Still pressure on chest. No fevers, eating, no pain. Acetaminophen (Tylenol Tab*) 650 mg PO Q4H PRN PRN Reason: FEVER/PAIN Albuterol/Ipratropium (Duoneb (Albuterol 2.5 Mg/Ipratropium 0.5 Mg)) 1 neb INH Q6H [facility] Last Admin: 12/31/16 06:11 Dose: 1 neb Allopurinol (Zyloprim Tab*) 300 mg PO DAILY [facility] Last Admin: 12/31/16 09:03 Dose: 300 mg Apixaban (Eliquis*) 5 mg PO BID [facility] Last Admin: 12/31/16 09:03 Dose: 5 mg Aspirin (Aspirin Ec Low Dose*) 81 mg PO DAILY [facility] Last Admin: 12/31/16 09:03 Dose: 81 mg Atorvastatin Calcium (Lipitor*) 40 mg PO DAILY [facility] Last Admin: 12/31/16 09:03 Dose: 40 mg Buspirone HCl (Buspar Tab*) 5 mg PO TID [facility] Last Admin: 12/31/16 09:03 Dose: 5 mg Azithromycin 500 mg/ Sodium (Chloride) 250 mls @ 250 mls/hr IVPB Q24H [facility] Last Admin: 12/30/16 21:19 Dose: 250 mls/hr Piperacillin Sod/Tazobactam (Sod 3.375 gm/ Sodium Chloride) 100 mls @ 25 mls/ hr IVPB Q8H [facility] Last Admin: 12/31/16 09:03 Dose: 25 mls/hr Levothyroxine Sodium (Synthroid Tab*) 150 mcg PO DAILY@0600 [facility] Last Admin: 12/31/16 06:21 Dose: 150 mcg Metoprolol Succinate (Toprol Xl Tab*) 12.5 mg PO DAILY [facility] Last Admin: 12/31/16 09:04 Dose: 12.5 mg Ondansetron HCl (Zofran Inj*) 4 mg IV Q6H PRN PRN Reason: NAUSEA Last Admin: 12/28/16 22:38 Dose: 4 mg Paroxetine HCl (Paxil Tab*) 30 mg PO DAILY [facility] Last Admin: 12/31/16 09:03 Dose: 30 mg Pharmacy Consult (Zosyn Per Pharmacy*) 1 note FOLLOW UP .ZOSYN PER PHARMACY [facility] Prednisone (Deltasone Tab*) 40 mg PO DAILY [facility] Last Admin: 12/31/16 09:04 Dose: 40 mg Objective: [] Vital Signs Temp Pulse Resp BP Pulse Ox 98.1 F 74 20 122/47 92 12/31/16 07:18 12/31/16 07:18 12/31/16 08:00 12/31/16 07:18 12/31/16 07:18 HEENT - No thrush diffuse crackles, no wheezing RRR II/IV OSWALDO spleen tip, NT/ND Assessment: []76 year old with a history of essential thrombocytosis treated with Jakafi. Recent hospitalization with SOB and sever anemia, thought to have pneumonia and anemia that was multi factorial (chronic disease, hemolysis across valve, from Jakafi). She also has multiple co-morbidities including dementia, aortic valve diseases s/p TAVR. Discharged home but presented again with progressive SOB. CT chest with patchy air space disease consent with CHF, pneumotiis or an atypical pnemonia. I supect the hypozia is CHF and fluid overload, this could be a drug induced pnemonitis from Jakafi (held), she is afebrile making infection less likely. Plan: []1. SOB. Agree with antibiotics. I put her on prednisone yesterday incase this is drug induced pneumonitis. Can consider cardiology input, and ff she does not improve will need bronchoscopy. 2. ET. No treatment for thrombocytosis other than an ASA daily. It is difficult to treat her thrombocytosis at this time. With platelets over 1000K she is at risk for acquired von Willabrand's disease as well as thrombosis. 3. Anemia. 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 The anemia is contributing to her feeling SOB but not the hypoxia. No transfusion today, risk of further volume overload.
--- NOTE | 2016-12-31 13:04 | PN ---
Subjective Date of Service: 12/31/16 Interval History: Patient has dyspnea at rest. No worse lying flatter in bed, slept well. Cough is non-productive. She is eating lunch, but dyspneic w/ eating. She attempted to walk to with nursing overnight, could not make it. Family History: Unchanged from Admission Social History: Unchanged from Admission Past Medical History: Unchanged from Admission Objective Active Medications: Acetaminophen (Tylenol Tab*) 650 mg PO Q4H PRN PRN Reason: FEVER/PAIN Albuterol/Ipratropium (Duoneb (Albuterol 2.5 Mg/Ipratropium 0.5 Mg)) 1 neb INH Q6H [facility] Last Admin: 12/31/16 06:11 Dose: 1 neb Allopurinol (Zyloprim Tab*) 300 mg PO DAILY [facility] Last Admin: 12/31/16 09:03 Dose: 300 mg Apixaban (Eliquis*) 5 mg PO BID [facility] Last Admin: 12/31/16 09:03 Dose: 5 mg Aspirin (Aspirin Ec Low Dose*) 81 mg PO DAILY [facility] Last Admin: 12/31/16 09:03 Dose: 81 mg Atorvastatin Calcium (Lipitor*) 40 mg PO DAILY [facility] Last Admin: 12/31/16 09:03 Dose: 40 mg Buspirone HCl (Buspar Tab*) 5 mg PO TID [facility] Last Admin: 12/31/16 09:03 Dose: 5 mg Azithromycin 500 mg/ Sodium (Chloride) 250 mls @ 250 mls/hr IVPB Q24H [facility] Last Admin: 12/30/16 21:19 Dose: 250 mls/hr Piperacillin Sod/Tazobactam (Sod 3.375 gm/ Sodium Chloride) 100 mls @ 25 mls/ hr IVPB Q8H [facility] Last Admin: 12/31/16 09:03 Dose: 25 mls/hr Levothyroxine Sodium (Synthroid Tab*) 150 mcg PO DAILY@0600 [facility] Last Admin: 12/31/16 06:21 Dose: 150 mcg Metoprolol Succinate (Toprol Xl Tab*) 12.5 mg PO DAILY [facility] Last Admin: 12/31/16 09:04 Dose: 12.5 mg Ondansetron HCl (Zofran Inj*) 4 mg IV Q6H PRN PRN Reason: NAUSEA Last Admin: 12/28/16 22:38 Dose: 4 mg Paroxetine HCl (Paxil Tab*) 30 mg PO DAILY [facility] Last Admin: 12/31/16 09:03 Dose: 30 mg Prednisone (Deltasone Tab*) 40 mg PO DAILY [facility] Last Admin: 12/31/16 09:04 Dose: 40 mg Vital Signs 12/30/16 12/30/16 12/31/16 20:00 23:28 00:00 Temperature 36.4 C Pulse Rate 56 85 Respiratory 28 24 16 Rate Blood Pressure 126/49 (mmHg) O2 Sat by Pulse 97 97 Oximetry 12/31/16 12/31/16 12/31/16 03:12 03:54 06:14 Temperature 36.3 C Pulse Rate 69 61 Respiratory 28 18 Rate Blood Pressure 99/37 108/42 (mmHg) O2 Sat by Pulse 90 92 Oximetry 12/31/16 12/31/16 07:18 08:00 Temperature 36.7 C Pulse Rate 74 Respiratory 28 20 Rate Blood Pressure 122/47 (mmHg) O2 Sat by Pulse 92 Oximetry Oxygen Devices in Use Now: Nasal Cannula Appearance: no respiratory distress, speaking clearly Ears/Nose/Mouth/Throat: Clear Oropharnyx Neck: No Thyroid Enlargement, Masses, - - no JVD Respiratory: - - diffuse rales, bibasilar in particular Cardiovascular: No Edema, - - regular w/ frequent premature beats, 3/6 low- pitched systolic murmur Lymphatic: No Cervical Adenopathy Extremities: No Edema Skin: No Rash or Ulcers Neurological: Alert and Oriented x 3 Lines/Tubes/Other Access: Clean, Dry and Intact Peripheral IV Nutrition: Taking PO's Result Diagrams: 12/31/16 05:06 12/31/16 05:06 Additional Lab and Data: Microbiology Laboratory Tests 12/31/16 05:06 B-Natriuretic Peptide 431 H Microbiology and Other Data: Microbiology Microbiology 12/30/16 12:10 Sputum Expectorated Gram Stain - Final 12/29/16 18:28 Blood Bag Transfusion Reaction Gram Stain - Final 12/28/16 20:50 Urine Legionella Urinary Antigen - Final 12/28/16 20:50 Urine Streptococcus pneumoniae Ag Screen - Final Negative Legionella Negative S. pneumo Antigen 12/30/16 12:10 Sputum Expectorated Sputum Culture - Preliminary YEAST 12/29/16 18:28 Blood Bag Transfusion Reaction Culture - Preliminary 12/29/16 18:28 Blood Bag No Growth Day 2 12/28/16 20:08 Blood Venous Aerobic Blood Culture - Preliminary 12/28/16 20:08 Blood Venous Anaerobic Blood Culture - Preliminary No Growth Day 2 No Growth Day 2 12/28/16 20:05 Blood Venous Aerobic Blood Culture - Preliminary 12/28/16 20:05 Blood Venous Anaerobic Blood Culture - Preliminary No Growth Day 2 No Growth Day 2 Diagnostic Imaging: CHEST CT Findings 12/28/16:Cardiogenic pulmonary edema, vs. pneumonitis, vs. infectious pneumonia Assess/Plan/Problems-Billing Assessment: This is a 76 yo female with past medical hx significant for HTN, s/p TAVR, CVA, Afib/flutter, anemia, arthritis, CHF and myeloproliferative disorder that presented in the ER with SOB/hypoxia and was admitted with diagnosis of PNA. - Patient Problems (1) Pneumonia Current Visit: Yes Status: Acute Priority: High Code(s): J18.9 - PNEUMONIA , UNSPECIFIED ORGANISM SNOMED Code(s): 070928809 Comment: - Continue Zosyn, azithro. Not responding rapidly. - Leukocytosis significant, etiology unclear if this is PNA (afebrile?) vs. effect of Jakafi, continue to monitor WBCs. Now on prednisone, could elevate WBC further - Flutter valve at bedside - Follow cultures, sputum pending - Adjust atbx as susceptibility becomes available if needed - Procalcitonin <0.01 argues for non-infectious etiology - Risk for PCP with Jakafi (on hold); will induce sputum for PCP - May need pulmonology consultation. (2) CHF (congestive heart failure) Current Visit: Yes Status: Acute Priority: Medium Code(s): I50.9 - HEART FAILURE, UNSPECIFIED SNOMED Code(s): 06858092 Comment: - chronic diastolic HF suspected - creatinine up, symptoms no better w/ diuretics, so will hold diuretics - 12/07/16 - Echo shows hyperdynamic small LV. Aortic valve functioning appropriately, with perivalvular leak - Daily weights and strict I+O's - O2 via NC to keep sats >92% (3) Myeloproliferative disorder Current Visit: No Status: Chronic Priority: Medium Code(s): D47.1 - CHRONIC MYELOPROLIFERATIVE DISEASE SNOMED Code(s): 266237881 Comment: -Discussed w/ Dr. Betancourt, off Jakafi permanently. We are accepting risk of stroke. Continue ASA - Hold Jakafi, anemia has not improved. There is suspicion of hemolysis due to valve. - Anemia of CKD also present, low erythropoetin level seen (4) Atrial flutter Current Visit: No Status: Chronic Code(s): I48.92 - UNSPECIFIED ATRIAL FLUTTER SNOMED Code(s): 2066558 Comment: - Rate stable - Continue eliquis and metoprolol - No need for DVT propylaxis in addition to Eliquis Status and Disposition: Remain inpatient for management of increasing pulmonary inflammation/infection. Will be DC to home vs. rehab depending on response to inpatient treatment.
[2016-12-31] MEDS: Azithromycin IV(*) 500 MG in NS 0.9% 250 ML* 250 ML IVPB SCH (21:36)
[2017-01-01] MEDS: ZOSYN 3.375 GM Q8H per EXTENDED INFUSION IVPB SCH ×4 (00:49→09:14)
[2017-01-01] MEDS: Albuterol/Ipratropium NEB.SOL* Albuterol 2.5 MG/Ipratropium 0.5 MG 3 ML INH SCH ×2 (01:19→07:42)
[2017-01-01] MEDS: LORazepam INJ* 2 MG/ML 1 ML VIAL ONE ×2 (06:35→09:30)
--- NOTE | 2017-01-01 06:43 | PN ---
Progress Note - Progress Note Date of Service: 01/01/17 Note: Nursing reported onset of L nasal bleeding unable to be controlled with pressure , ice, & superficial packing. This has complicated her tenuous respiratory status requiring her oxygen to be titrated to 15L oxymask while only maintaining in the low to mid-80s. Upon arrival, she is anxious, but not in overt respiratory distress. Blood was trickling anteriorly from the L nare. Mrs Dunn denied any draining down the back of her throat. As such, an anterior rhino-rocket saturated with phenylephrine was inserted with good early control of bleeding. She was given 0.5mg IV lorazepam for anxiety, but her saO2 on 15L oxymask only came to the low to mid-90s. As such she will be transferred to ICU for attempts to arrange more oxygen flow than available on the floor. Consider ENT consult later this AM.
[2017-01-01 08:08] LABS: Hematocrit 30 % (35-47); Hemoglobin 9.4 g/dl (12.0-16.0); Mean Corpuscular HGB Conc 31 g/dl (31-36); Mean Corpuscular Hemoglobin 28 pg (27-31); Mean Corpuscular Volume 88 fL (80-97); Mean Platelet Volume 7 um3 (7.4-10.4); Red Blood Count 3.42 10^6/ul (4.0-5.4); Red Cell Distribution Width 19 % (10.5-15)
[2017-01-01 08:18] LABS: Add Diff/Slide Review? Manual Diff Added; Calcium 9.3 mg/dL (8.6-10.3); Comments Flag Yes; EGFR African American 63.8 (>60); EGFR Non-African American 49.6 (>60); Potassium 3.6 mmol/L (3.5-5.0)
--- NOTE | 2017-01-01 08:48 | RAD ---
INDICATION: Respiratory failure. COMPARISON: Comparison is made with prior chest x-ray studies from December 08, 2016 and December 28, 2016. TECHNIQUE: A portable view of the chest was obtained. FINDINGS: The heart appears enlarged and unchanged from the prior study. There is a dense infiltrate present throughout the right lung with more patchy infiltrates present in the left lung in the mid and lower lung field. There appears to be slight progression when compared with the prior study. No pleural effusion is seen. IMPRESSION: BILATERAL INFILTRATES RIGHT GREATER THAN LEFT DEMONSTRATE A SLIGHT PROGRESSION.
[2017-01-01 08:49] LABS: Eosinophils % 3 % (0-6); Immature Granulocytes 12 % (0-9); Metamyelocytes % 2 % (0-2); Myelocytes % 2 % (0-1); Neutrophil % 75 % (38-83)
[2017-01-01 08:50] LABS: Polychromasia 1+; Tear Drop Cells 1+
[2017-01-01] MEDS: Apixaban* 5 MG TAB PO SCH (08:50)
[2017-01-01 08:51] LABS: Add Path Review? YES; Hypochromasia 1+
[2017-01-01] MEDS ORDERED: Metoprolol Tartrate IV* 1 MG/ML 5 ML VIAL IV PRN (09:19)
[2017-01-01] MEDS: LORazepam INJ* 2 MG/ML 1 ML VIAL IV PUSH PRN ×2 (09:31→18:24)
--- NOTE | 2017-01-01 11:48 | PN ---
Progress Note - Progress Note Date of Service: 01/01/17 SOAP: Subjective: []Nose bleed overnight and acute respiratory decompensation. Posterior packing improved bleeding. Transferred to ICU. She is on vapotherm but progressive hypoxia. She is sedated and not in distress. Acetaminophen (Tylenol Tab*) 650 mg PO Q4H PRN PRN Reason: FEVER/PAIN Albuterol/Ipratropium (Duoneb (Albuterol 2.5 Mg/Ipratropium 0.5 Mg)) 1 neb INH 0100,0700,1300,1900 [facility] Last Admin: 01/01/17 07:42 Dose: 1 neb Allopurinol (Zyloprim Tab*) 300 mg PO DAILY [facility] Last Admin: 12/31/16 09:03 Dose: 300 mg Atorvastatin Calcium (Lipitor*) 40 mg PO DAILY [facility] Last Admin: 12/31/16 09:03 Dose: 40 mg Buspirone HCl (Buspar Tab*) 5 mg PO TID [facility] Last Admin: 12/31/16 21:27 Dose: 5 mg Azithromycin 500 mg/ Sodium (Chloride) 250 mls @ 250 mls/hr IVPB Q24H [facility] Last Admin: 12/31/16 21:36 Dose: 250 mls/hr Piperacillin Sod/Tazobactam (Sod 3.375 gm/ Sodium Chloride) 100 mls @ 25 mls/ hr IVPB Q8H [facility] Last Admin: 01/01/17 09:14 Dose: 25 mls/hr Levothyroxine Sodium (Synthroid Tab*) 150 mcg PO DAILY@0600 [facility] Last Admin: 12/31/16 06:21 Dose: 150 mcg Lorazepam (Ativan Inj*) 1 mg IV PUSH Q4H PRN PRN Reason: ANXIETY Last Admin: 01/01/17 09:31 Dose: 1 mg Metoprolol Tartrate (Lopressor Iv*) 5 mg IV Q6H PRN PRN Reason: HEART RATE/PULSE Last Admin: 01/01/17 09:32 Dose: 5 mg Ondansetron HCl (Zofran Inj*) 4 mg IV Q6H PRN PRN Reason: NAUSEA Last Admin: 12/28/16 22:38 Dose: 4 mg Paroxetine HCl (Paxil Tab*) 30 mg PO DAILY [facility] Last Admin: 12/31/16 09:03 Dose: 30 mg Pharmacy Consult (Zosyn Per Pharmacy*) 1 note FOLLOW UP .ZOSYN PER PHARMACY [facility] Prednisone (Deltasone Tab*) 40 mg PO DAILY [facility] Last Admin: 12/31/16 09:04 Dose: 40 mg Objective: [] Vital Signs Temp Pulse Resp BP Pulse Ox 99.5 F 100 39 122/67 94 01/01/17 07:38 01/01/17 11:00 01/01/17 11:00 01/01/17 11:00 01/01/17 11:00 HEENT - Blood on nose packing. face mask and NC diffuse crackles, RR 22 RRR II/IV [facility]WAL[facility] Neuro - arouseable, not responsive CXR - progressive diffuse interstitial disease. Assessment: []76 year old with a history of essential thrombocytosis treated with Jakafi. Recent hospitalization with SOB and sever anemia, thought to have pneumonia and anemia that was multi factorial (chronic disease, hemolysis across valve, from Jakafi). Progressive respiratory failure after nose bleed. Suspect aspiration in setting of progressive pneumonitis from Jakafi. Bleeding may be acquire von Willabrand disease from thrombocytosis. Case reviewed with Dr. Gardner and discussed with daughter. Will need increased support and likely ventilator. It is likley she would not be able to come off machines. Additionally, there is no clear means to treat her progressive thrombocyotsis given respiratory disease and intolerance of HU. Daughter states her wishes were to not be on a machine. Plan: []1. DNR and DNI. Support as needed short of incubation. Would like her to be alive for her daughter to come in from [place]. 2. Symptomatic treatment of bleeding.
[2017-01-01] MEDS: busPIRone TAB* 5 MG PO SCH (12:15)
[2017-01-01] MEDS: Allopurinol TAB* 300 MG PO SCH (12:15)
[2017-01-01] MEDS: PARoxetine HCL TAB* 10 MG PO SCH (12:15)
[2017-01-01] MEDS: Atorvastatin* 40 MG TAB PO SCH (12:15)
[2017-01-01] MEDS: predniSONE TAB* 20 MG PO SCH (12:15)
[2017-01-01] MEDS: Levothyroxine TAB* 150 MCG TAB PO SCH (12:15)
[2017-01-01] MEDS ORDERED: Morphine INJ* 10 MG/ML 1 ML CARPUJECT IV PRN (12:59)
--- NOTE | 2017-01-01 14:24 | PN ---
Critical Care Services: 76 y/o female transferred to ICU with hypoxic respiratory failure - hospitalized since 12/28 because of diffuse infiltrates (present since prior admission) and increasing respiratory distress - also has Hx of myeloproliferative disorder, aortic valve replacement, dementia, AFib. Had a nosebleed last night requiring posterior packing - subsequently developed worsening hypoxemia, and brought to ICU. CXR shows infiltrative disease involving right lung and base of left lung. Vital Signs: Temp Pulse Resp BP SpO2 FiO2 99.5 F 100 31 122/63 96 100 Physical Exam: Gen: Somnolent but arousable. Is tachypneic and using accessory muscles of respiration. HEENT: No active nosebleed. Packing emanating from left nares. Lungs: Crackles on both sides (R>L) No wheezes. Cardiac: Irreg rhythm Abdomen: Not distended Extremities: No cyanosis or edema Fluid Balance (Past 24 Hours): 01/01/17 06:59 Intake Total 2418 Output Total 3475 Balance -1057 Weight 187 lb Intake: IV Fluids 160 NS 60 zosyn 100 IVPB 479 NS 479 zithromax zosyn Oral 1520 Packed Cells 259 Output: Urine Foster 3475 Other: # Bowel Movements 0 Labs: 01/01/17 01/01/17 07:50 07:50 WBC 33.0 Hgb 9.4 Hct 30 Plt Count 1234 Immature Gran % (Auto) 12 Band Neutrophils % 8 Sodium 138 Potassium 3.6 Chloride 105 Carbon Dioxide 24 BUN 31 Creatinine 1.07 Glucose 98 Studies: None Nutrition: Oral diet (poor intake) Impression: I think this patient has 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 There may also be some superimposed aspiration of blood from the recent nosebleed. This condition does not represent heart failure or an acute pneumonia. The prognosis is very poor, because there is no Rx that will reverse the pulmonary condition. Plan: I have spoken with Dr. Betancourt (oncology service), who agrees with this evaluation. We have both spoken with the daughter (the healthcare proxy), who has agreed to a DNR/DNI. The management at this point will consist of general supportive care. Patient will receive opioids if needed for sense of breathlessness. Critical Care Time: 65 minutes (not including discussions with Dr. Betancourt and the patient's daughter)
[2017-01-01 23:18] LABS: Urine Creatinine/24HR 1539.94 mg/24Hr (600-1800)
[2017-01-02] MEDS: methylPREDNISolone SOD 40 MG* 1 ML VIAL IV SCH (09:20)
[2017-01-02] MEDS: Levothyroxine TAB* 150 MCG TAB PO SCH ×2 (09:24→10:58)
[2017-01-02] MEDS: PARoxetine HCL TAB* 10 MG PO SCH ×2 (10:26→10:58)
[2017-01-02] MEDS: Enoxaparin(*) 40 MG/0.4 ML SYR SUBCUT SCH (11:01)
--- NOTE | 2017-01-02 15:00 | PN ---
Critical Care Services: Patient had an uneventful evening, and has slightly better gas exchange today. Nasal packing removed without consequence, and now on nasal O2 at 10 L/min. Mental status also improved. Vital Signs: Temp Pulse Resp BP SpO2 FiO2 98.5 F 100 27 122/74 98 100 Physical Exam: Gen: Frail-appearing, but is alert and oriented. Looks much better than yesterday. HEENT: No active bleeding from nares Lungs: Crackles in both lungs (R>L) Cardiac: Irreg Rhythm Extremities:No cyanosis or edema Fluid Balance (Past 24 Hours): 01/02/17 06:59 Intake Total 383 Output Total 1550 Balance -1167 Weight 188 lb 11.451 oz Intake: IV Fluids 124 NS 124 zosyn IVPB NS zithromax zosyn Oral 0 Packed Cells 259 Output: Foster 1550 Other: # Bowel Movements 0 Labs: None today Studies: None today Nutrition: Advanced to regular diet today. Impression: Has improved since yesterday. Plan: Will send back to the floor if she continues to improve. If she deteriorates again, then a change to "comfort measures only" care is appropriate. Dr. Betancourt in agreement. Patient's family is present at bedside and is aware of management plan. Critical Care Time: 40 minutes
[2017-01-03] MEDS: Levothyroxine TAB* 150 MCG TAB PO SCH (06:30)
[2017-01-03] MEDS: Enoxaparin(*) 40 MG/0.4 ML SYR SUBCUT SCH (09:02)
[2017-01-03] MEDS: PARoxetine HCL TAB* 10 MG PO SCH (09:03)
[2017-01-03] MEDS: methylPREDNISolone SOD 40 MG* 1 ML VIAL IV SCH ×3 (09:03→21:49)
[2017-01-03] MEDS: Metoprolol Succinate XL TAB* 25 MG PO SCH (09:09)
[2017-01-03] MEDS: Aspirin EC Low Dose* 81 MG TAB.EC PO SCH (09:09)
[2017-01-03] MEDS: Albuterol/Ipratropium NEB.SOL* Albuterol 2.5 MG/Ipratropium 0.5 MG 3 ML INH SCH ×4 (11:02→23:36)
[2017-01-03] MEDS ORDERED: Morphine INJ* 2 MG/ML 1 ML SYRINGE (TWO MG - NEW SYRINGE VERSION) IV PRN (11:42)
--- NOTE | 2017-01-03 11:51 | PN ---
Progress Note - Progress Note Date of Service: 01/03/17 Note: CRITICAL CARE MEDICINE Date: 01/03/17 Time: 1025 SUBJECTIVE: Patient seen and examined. PHYSICAL EXAM: Vital Signs: Reviewed. Neurologic: communicating, holds capacity HEENT: pupils equal. Sclera anicteric. Trachea midline. Cardiovascular: S1 S2 Respiratory: soft rales on R, no rhonchi Abdomen: Soft, nt. No r/g/r. Extremities: Warm. LABS: Reviewed. IMAGING: Reviewed. MEDICATIONS: Reviewed. ASSESSMENT: 76 F Acute hypoxic resp failure on chronic Acute pneumonitis on chronic Thrombocytosis. CAF PLAN: We discussed her dynamics at length, with her daughter present. Off HFO2 and try to continue O2 wean. Metaneb today to maximize against atelectasis. oob. dc mejia. Inc steroids to 1mg/kg/daily to see if we can achieve a benefit from interstitial progressive disease. doubt infectious. we discussed bronch/olb potentials but she agreeable declines these directions currently. resume asa tomorrow and wait a touch longer on eliquis. Discussed her stabilizing, but how much she can improve ? may need to consider palliative but time currently Pt and daughter expressed understanding Supportive and preventative care as ordered. Disposition: ICU today Code Status: DNR/DNI Critical Care Time: 35min Naomy Huddleston DO
[2017-01-04] MEDS: Albuterol/Ipratropium NEB.SOL* Albuterol 2.5 MG/Ipratropium 0.5 MG 3 ML INH SCH ×5 (03:58→19:54)
[2017-01-04] MEDS: Levothyroxine TAB* 150 MCG TAB PO SCH (06:38)
[2017-01-04 06:48] LABS: Hematocrit 30 % (35-47); Hemoglobin 9.4 g/dl (12.0-16.0); Mean Corpuscular HGB Conc 32 g/dl (31-36); Mean Corpuscular Hemoglobin 28 pg (27-31); Mean Corpuscular Volume 88 fL (80-97); Mean Platelet Volume 8 um3 (7.4-10.4); Red Blood Count 3.37 10^6/ul (4.0-5.4); Red Cell Distribution Width 19 % (10.5-15); White Blood Count 40.1 10^3/ul (3.5-10.8)
[2017-01-04 07:02] LABS: BUN/Creatinine Ratio 39.4 (8-20); Calcium 9.2 mg/dL (8.6-10.3); EGFR African American 69.8 (>60); EGFR Non-African American 54.2 (>60); Magnesium 2.1 mg/dL (1.9-2.7); Phosphorus 3.7 mg/dL (2.5-5.0); Potassium 4.6 mmol/L (3.5-5.0)
[2017-01-04 07:03] LABS: Add Diff/Slide Review? Manual Diff Added; Comments Flag Yes
[2017-01-04 08:14] LABS: Add Path Review? YES; Eosinophils % 2 % (0-6); Immature Granulocytes 2 % (0-9); Metamyelocytes % 1 % (0-2); Myelocytes % 1 % (0-1); Neutrophil % 87 % (38-83); Polychromasia 2+
[2017-01-04] MEDS: Enoxaparin(*) 40 MG/0.4 ML SYR SUBCUT SCH (09:31)
[2017-01-04] MEDS: Aspirin EC Low Dose* 81 MG TAB.EC PO SCH (09:31)
[2017-01-04] MEDS: PARoxetine HCL TAB* 10 MG PO SCH (09:31)
[2017-01-04] MEDS: methylPREDNISolone SOD 40 MG* 1 ML VIAL IV SCH ×2 (09:32→20:26)
--- NOTE | 2017-01-04 11:37 | PN ---
Progress Note - Progress Note Date of Service: 01/04/17 Note: CRITICAL CARE MEDICINE Date: 01/04/17 Time: 1025 SUBJECTIVE: Patient seen and examined. PHYSICAL EXAM: Vital Signs: Reviewed. Neurologic: communicating, more dementia features noted HEENT: pupils equal. Sclera anicteric. Trachea midline. Cardiovascular: S1 S2 Respiratory: soft rales on R still, no rhonchi Abdomen: Soft, nt. No r/g/r. Extremities: Warm. LABS: Reviewed. IMAGING: Reviewed. MEDICATIONS: Reviewed. ASSESSMENT: 76 F Acute hypoxic resp failure on chronic Acute pneumonitis on chronic Thrombocytosis. CAF PLAN: daughter present. Off HFO2 and maintaining fine. question will still be if any real functional recovery or whether lung disease continues to smolder till demise. flutter valve. oob. weaning O2 but don't exaccerbate. Steroid pulse for a week and taper then to see if we can maximize her. resumed asa; and wait a touch longer on eliquis. Palliative care eval for hospice info Onc follow up Supportive and preventative care as ordered. Disposition: to floor, can remain on tele Code Status: DNR/DNI Critical Care Time: 25min Naomy Huddleston DO
[2017-01-04] MEDS: LORazepam INJ* 2 MG/ML 1 ML VIAL IV PUSH PRN (23:37)
[2017-01-05] MEDS: Albuterol/Ipratropium NEB.SOL* Albuterol 2.5 MG/Ipratropium 0.5 MG 3 ML INH SCH ×3 (00:14→07:32)
[2017-01-05] MEDS: Levothyroxine TAB* 150 MCG TAB PO SCH (05:22)
[2017-01-05] MEDS ORDERED: Morphine ORAL CONCENTRATE* 5 MG/0.25 ML ORAL.SYRIN PO PRN (08:05)
--- NOTE | 2017-01-05 08:05 | PN ---
Progress Note - Progress Note Date of Service: 01/05/17 SOAP: Subjective: feels a little better each day. has not been out of bed much. breathing stable this morning. very reserved today in terms of discussing prognosis and plan. denies pain or SOB today (though visibly tachypneic) Objective: Vital Signs Temp Pulse Resp BP Pulse Ox 97.3 F 95 85 127/69 14 01/05/17 04:30 01/05/17 07:36 01/05/17 07:36 01/05/17 04:30 01/05/17 07:36 lying flat, tachypneic perr eomi op moist diffuse crackles, R>L s1 s2 irr irr harsh murmur rusb soft nt +Bs trace LE edema A+O x 3, nonfocal neurological exam Albuterol/Ipratropium (Duoneb (Albuterol 2.5 Mg/Ipratropium 0.5 Mg)) 1 neb INH Q4H [facility] Last Admin: 01/05/17 07:32 Dose: 1 neb Aspirin (Aspirin Ec Low Dose*) 81 mg PO DAILY [facility] Last Admin: 01/04/17 09:31 Dose: 81 mg Enoxaparin Sodium (Lovenox(*)) 40 mg SUBCUT DAILY [facility] Last Admin: 01/04/17 09:31 Dose: 40 mg Levothyroxine Sodium (Synthroid Tab*) 150 mcg PO DAILY@0600 [facility] Last Admin: 01/05/17 05:22 Dose: 150 mcg Lorazepam (Ativan Inj*) 1 mg IV PUSH Q4H PRN PRN Reason: ANXIETY Last Admin: 01/04/17 23:37 Dose: 1 mg Methylprednisolone Sodium Succinate (Solu-Medrol 40 Mg) 40 mg IV BID [facility] Last Admin: 01/04/17 20:26 Dose: 40 mg Metoprolol Tartrate (Lopressor Iv*) 5 mg IV Q6H PRN PRN Reason: HEART RATE/PULSE Last Admin: 01/01/17 09:32 Dose: 5 mg Morphine Sulfate (Morphine Inj (Syringe)*) 2 mg IV Q2H PRN PRN Reason: DISCOMFORT Paroxetine HCl (Paxil Tab*) 30 mg PO DAILY [facility] Last Admin: 01/04/17 09:31 Dose: 30 mg Assessment: 76 yo f w advanced myelofibrosis, afib, , and CHF with course complicated by likely pneumonitis thought secondary to jakafi with recurrent respiratory failure. She is currently improved enough to be out of the ICU on supplemental O2, however overall her prognosis is quite poor as our ability to treat her underlying myelofibrosis is limited. I discussed this again with Andreia. I mentioned palliative/hospice care, which she seems receptive to, though was certainly not effusive in her conversation. Plan: Pneumonitis: cont steroids with plan for 1 week pulse then taper supplemental O2 and morphine for comfort, will change IV to PO afib: h/o CVA resume eliquis cont asa myelofibrosis: worsening off of jakafi, without treatment options palliative care c/s as above DNR
[2017-01-05] MEDS ORDERED: Albuterol/Ipratropium NEB.SOL* Albuterol 2.5 MG/Ipratropium 0.5 MG 3 ML INH PRN (08:23)
[2017-01-05] MEDS: methylPREDNISolone SOD 40 MG* 1 ML VIAL IV SCH ×2 (10:03→21:32)
[2017-01-05] MEDS: Enoxaparin(*) 40 MG/0.4 ML SYR SUBCUT SCH (10:03)
[2017-01-05] MEDS: Aspirin EC Low Dose* 81 MG TAB.EC PO SCH (10:04)
[2017-01-05] MEDS: PARoxetine HCL TAB* 10 MG PO SCH (10:04)
[2017-01-05] MEDS: Apixaban* 5 MG TAB PO SCH ×2 (10:04→21:32)
--- NOTE | 2017-01-05 10:49 | CONSULT ---
Palliative / Hospice Consult Ordering Provider: Barrie Huddleston - Subjective Code Status: DNR Advance Directives Location: In Chart MOLST Part A Completed: Yes MOLST Part E Completed:: Yes - History or Present Illness History or Present Illness: This 76 year old woman has a longstanding history of myeloproliferative disorder and jakati-induced recurrent respiratory failure. Her wbc count is 40K , and platelets 1291K. She also has a history of AF, and CHF, and is anticoagulated. She suffered several CVAs a few years ago and since then has had significant memory impairment, which she freely admits. She has been living in [place], [place] with her daughter and HCP, Chani Anderson ([phone]). Per Dr. Hawk's note, there are no remaining treatment options for this patient's myeloproliferative neoplasm, and the patient has advanced directives specifying no intubation or mechanical ventilation, a desire she reiterates to me today, so there is no benefit in future hospitalization; therefore a request was made for palliative consultation to discuss the option of hospice services. Lab Values: Abnormal Lab Results 01/04/17 06:40 Hem Pathologist Commnt Laboratory Last Values WBC 40.1 10^3/ul (3.5-10.8) H 01/04/17 06:40 RBC 3.37 10^6/ul (4.0-5.4) L 01/04/17 06:40 Hgb 9.4 g/dl (12.0-16.0) L 01/04/17 06:40 Hct 30 % (35-47) L 01/04/17 06:40 MCV 88 fL (80-97) 01/04/17 06:40 MCH 28 pg (27-31) 01/04/17 06:40 MCHC 32 g/dl (31-36) 01/04/17 06:40 RDW 19 % (10.5-15) H 01/04/17 06:40 Plt Count 1291 10^3/ul (150-450) H D 01/04/17 06:40 MPV 8 um3 (7.4-10.4) 01/04/17 06:40 Immature Gran % (Auto) 2 % (0-9) 01/04/17 06:40 Neut % (Auto) 89.4 % (38-83) H 12/31/16 05:06 Lymph % (Auto) 2.2 % (25-47) L 12/31/16 05:06 Early % (Auto) 7.3 % (1-9) 12/31/16 05:06 Eos % (Auto) 0.6 % (0-6) 12/31/16 05:06 Baso % (Auto) 0.5 % (0-2) 12/31/16 05:06 Absolute Neuts (auto) 37.4 10^3/ul (1.5-7.7) H 01/04/17 06:40 Absolute Lymphs (auto) 0.8 10^3/ul (1.0-4.8) L 01/04/17 06:40 Absolute Monos (auto) 1.5 10^3/ul (0-0.8) H 01/04/17 06:40 Absolute Eos (auto) 0.2 10^3/ul (0-0.6) 01/04/17 06:40 Absolute Basos (auto) 0.2 10^3/ul (0-0.2) 01/04/17 06:40 Absolute Nucleated RBC 0 10^3/ul 01/04/17 06:40 Neutrophils % 87 % (38-83) H 01/04/17 06:40 Band Neutrophils % 8 % (0-8) 01/01/17 07:50 Lymphocytes % 3 % (25-47) L 01/04/17 06:40 Monocytes % 6 % (0-13) 01/04/17 06:40 Eosinophils % 2 % (0-6) 01/04/17 06:40 Basophils % 1 % (0-2) 12/30/16 05:25 Metamyelocytes % 1 % (0-2) 01/04/17 06:40 Myelocytes % 1 % (0-1) 01/04/17 06:40 Nucleated RBC % 0.1 12/31/16 05:06 Nucleated RBCs/100 WBC 1 (0-0) H 01/01/17 07:50 Normal RBC Morphology Not Reportable 01/04/17 06:40 Polychromasia 2+ 01/04/17 06:40 Hypochromasia 1+ 01/01/17 07:50 Tear Drop Cells 1+ 01/01/17 07:50 Elliptocytes 1+ 01/01/17 07:50 Acanthocytes (Spur) 1+ 12/28/16 17:41 Hem Pathologist Commnt 01/04/17 06:40 Sodium 137 mmol/L (133-145) 01/04/17 06:40 Potassium 4.6 mmol/L (3.5-5.0) 01/04/17 06:40 Chloride 103 mmol/L (101-111) 01/04/17 06:40 Carbon Dioxide 26 mmol/L (22-32) 01/04/17 06:40 Anion Gap 8 mmol/L (2-11) 01/04/17 06:40 BUN 39 mg/dL (6-24) H 01/04/17 06:40 Creatinine 0.99 mg/dL (0.51-0.95) H 01/04/17 06:40 Est GFR ( Amer) 69.8 (>60) 01/04/17 06:40 Est GFR (Non-Af Amer) 54.2 (>60) 01/04/17 06:40 BUN/Creatinine Ratio 39.4 (8-20) H 01/04/17 06:40 Glucose 171 mg/dL (70-100) H 01/04/17 06:40 POC Glucose (mg/dL) 137 mg/dL (70-100) H 01/01/17 16:53 Lactic Acid 0.8 mmol/L (0.5-2.0) 12/28/16 17:41 Calcium 9.2 mg/dL (8.6-10.3) 01/04/17 06:40 Phosphorus 3.7 mg/dL (2.5-5.0) 01/04/17 06:40 Magnesium 2.1 mg/dL (1.9-2.7) 01/04/17 06:40 Total Bilirubin 0.90 mg/dL (0.2-1.0) 12/31/16 05:06 AST 24 U/L (13-39) 12/31/16 05:06 ALT 11 U/L (7-52) 12/31/16 05:06 Alkaline Phosphatase 55 U/L (34-104) 12/31/16 05:06 Lactate Dehydrogenase 477 U/L (140-271) H 12/29/16 11:37 Troponin I 0.04 ng/mL (<0.04) H* 12/29/16 00:13 B-Natriuretic Peptide 431 pg/mL (-100) H 12/31/16 05:06 Total Protein 6.3 g/dL (6.4-8.9) L 12/31/16 05:06 Albumin 3.2 g/dL (3.2-5.2) 12/31/16 05:06 Globulin 3.1 g/dL (2-4) 12/31/16 05:06 Albumin/Globulin Ratio 1.0 (1-3) 12/31/16 05:06 Procalcitonin < 0.1 ng/mL (<0.6) 12/28/16 17:41 Ur Random Creatinine 83.24 mg/dL 01/01/17 22:15 Urine Collection Time 24 01/01/17 22:15 Urine Total Volume 1850 mL 01/01/17 22:15 Ur Creatinine 24 Hour 1539.94 mg/24Hr (600-1800) 01/01/17 22:15 Influenza A (Rapid) Negative (Negative) 12/28/16 20:22 Influenza B (Rapid) Negative (Negative) 12/28/16 20:22 Blood Type A Positive 12/29/16 11:37 Antibody Screen Negative 12/29/16 11:37 Crossmatch See Detail 12/29/16 11:37 Transfusion React Rpt 12/29/16 17:56 Donor Unit # [id number] 12/29/16 17:56 Post-Trans Blood Type A Positive 12/29/16 17:56 Post-Trans VENECIA Negative 12/29/16 17:56 Reaction Interpretation 12/29/16 17:56 - Objective Active Medications: Albuterol/Ipratropium (Duoneb (Albuterol 2.5 Mg/Ipratropium 0.5 Mg)) 1 neb INH Q4H PRN PRN Reason: SOB/WHEEZING Apixaban (Eliquis*) 5 mg PO BID [facility] Last Admin: 01/05/17 10:04 Dose: 5 mg Aspirin (Aspirin Ec Low Dose*) 81 mg PO DAILY [facility] Last Admin: 01/05/17 10:04 Dose: 81 mg Enoxaparin Sodium (Lovenox(*)) 40 mg SUBCUT DAILY [facility] Last Admin: 01/05/17 10:03 Dose: 40 mg Levothyroxine Sodium (Synthroid Tab*) 150 mcg PO DAILY@0600 [facility] Last Admin: 01/05/17 05:22 Dose: 150 mcg Lorazepam (Ativan Inj*) 1 mg IV PUSH Q4H PRN PRN Reason: ANXIETY Last Admin: 01/04/17 23:37 Dose: 1 mg Methylprednisolone Sodium Succinate (Solu-Medrol 40 Mg) 40 mg IV BID [facility] Last Admin: 01/05/17 10:03 Dose: 40 mg Metoprolol Tartrate (Lopressor Iv*) 5 mg IV Q6H PRN PRN Reason: HEART RATE/PULSE Last Admin: 01/01/17 09:32 Dose: 5 mg Morphine Sulfate (Morphine Oral Concentrate*) 5 mg PO Q2H PRN PRN Reason: PAIN Paroxetine HCl (Paxil Tab*) 30 mg PO DAILY [facility] Last Admin: 01/05/17 10:04 Dose: 30 mg Vital Signs: Vital Signs: Temp Pulse Resp BP Pulse Ox 97.6 F 85 18 118/66 95 01/05/17 07:19 01/05/17 07:37 01/05/17 08:00 01/05/17 07:19 01/05/17 07:37 Patient Weight: Weight 188 lb 9.6 oz Intake and Output: Intake & Output 01/03/17 01/04/17 01/05/17 01/06/17 06:59 06:59 06:59 06:59 Intake Total 690 1830 1170 Output Total 625 350 240 Balance 65 1480 930 Weight 188 lb 188 lb 9.6 oz Intake: Oral 690 1830 1170 Output: Urine 175 240 Foster 625 175 Other: Estimated Void Medium Medium # Bowel Movements 0 Estimated Stool Amount Small # Voids 1 1 ADLs: Meal Record Start: 12/28/16 19: 30 Freq: DAILY@0900,1400,1800 Status: Complete Protocol: Document 12/29/16 14:00 [id number] (Rec: 12/29/16 14:17 [id number] TELE-C11) Document 12/29/16 18:00 [id number] (Rec: 12/29/16 23:25 [id number] TELE-C01) Document 12/30/16 09:00 [id number] (Rec: 12/30/16 11:51 [id number] TELE-C11) Document 12/30/16 14:00 [id number] (Rec: 12/30/16 14:35 [id number] TELE-C11) Document 12/30/16 18:00 [id number] (Rec: 12/30/16 19:33 [id number] TELE-C11) Document 12/31/16 09:00 [id number] (Rec: 12/31/16 10:38 SBU2130 TELE-C11) Document 12/31/16 14:00 [id number] (Rec: 12/31/16 14:35 BJV7105 TELE-M03) Document 12/31/16 18:00 [id number] (Rec: 12/31/16 18:15 [id number] TELE-C01) ADLs: Meal Record Start: 01/01/17 09: 42 Freq: 09,13,18 Status: Active Protocol: Created 01/01/17 09:42 [id number] (Rec: 01/01/17 09:42 [id number] ICU-C12) Document 01/01/17 13:00 [id number] (Rec: 01/01/17 14:28 ZXW2066 ICU-C12) Document 01/01/17 18:00 [id number] (Rec: 01/01/17 18:05 [id number] ICU-C12) Document 01/02/17 09:00 [id number] (Rec: 01/02/17 09:00 [id number] ICU-C12) Document 01/02/17 13:00 [id number] (Rec: 01/02/17 15:13 [id number] ICU-C12) Document 01/02/17 18:00 [id number] (Rec: 01/02/17 22:42 [id number] ICU-C14) Document 01/03/17 10:02 FWT9306 (Rec: 01/03/17 10:02 [id number] ICU-C12) Document 01/03/17 14:28 [id number] (Rec: 01/03/17 14:28 [id number] ICU-C12) Document 01/03/17 18:00 EWC5732 (Rec: 01/03/17 21:17 ROW4317 ICU-C16) Document 01/04/17 09:23 RHO1601 (Rec: 01/04/17 09:23 DKV5310 ICU-C12) Document 01/04/17 18:00 [id number] (Rec: 01/04/17 18:44 HTX5923 MED-C14) Intake and Output Start: 12/28/16 19: 30 Freq: DAILY@0600,1400,2200 Status: Complete Protocol: Document 12/28/16 22:00 [id number] (Rec: 12/28/16 23:09 [id number] TELE-C09) Document 12/29/16 01:19 UXD2371 (Rec: 12/29/16 01:19 TIR7680 TELE-C11) Document 12/29/16 06:00 ZQT5503 (Rec: 12/29/16 06:24 PXW9203 TELE-C01) Document 12/29/16 14:00 OZQ9641 (Rec: 12/29/16 14:17 ZTJ6689 TELE-C11) Document 12/29/16 17:32 ERS2165 (Rec: 12/29/16 17:32 ESQ2286 TELE-M02) Document 12/29/16 21:03 ZDT2383 (Rec: 12/29/16 21:03 YMK2843 TELE-M02) Document 12/29/16 22:00 YOW4917 (Rec: 12/29/16 23:27 ALW5569 TELE-C01) Document 12/30/16 06:00 QUH7434 (Rec: 12/30/16 06:32 KYO6669 TELE-C10) Document 12/30/16 14:00 [id number] (Rec: 12/30/16 14:35 DJK9436 TELE-C11) Document 12/30/16 22:00 ORC5264 (Rec: 12/30/16 22:32 WDF9638 TELE-C10) Document 12/31/16 06:00 ZNZ2309 (Rec: 12/31/16 06:03 OKH6302 TELE-C11) Document 12/31/16 14:00 ZOZ9478 (Rec: 12/31/16 14:35 YZO4241 TELE-M03) Document 12/31/16 15:04 HZV9622 (Rec: 12/31/16 15:05 ZFG9220 TELE-C09) Document 12/31/16 22:00 [id number] (Rec: 12/31/16 22:56 VTE4460 TELE-C01) Document 01/01/17 06:00 [id number] (Rec: 01/01/17 07:50 AHU7531 TELE-C10) Intake and Output Start: 01/01/17 09: 42 Freq: 06,14,22 Status: Active Protocol: Created 01/01/17 09:42 [id number] (Rec: 01/01/17 09:42 [id number] ICU-C12) Document 01/01/17 15:05 (Rec: 01/01/17 15:05 ICU-C12) Document 01/01/17 22:00 [id number] (Rec: 01/01/17 22:25 RFF2274 ICU-C15) Document 01/02/17 06:00 KYV7276 (Rec: 01/02/17 06:41 [id number] ICU-C15) Document 01/02/17 14:00 NMQ4508 (Rec: 01/02/17 14:42 [id number] ICU-M02) Document 01/02/17 22:00 [id number] (Rec: 01/02/17 23:07 JWT6851 ICU-C14) Document 01/03/17 06:00 JWG6926 (Rec: 01/03/17 06:35 [id number] ICU-M09) Document 01/03/17 11:30 [id number] (Rec: 01/03/17 12:25 [id number] ICU-C12) Document 01/03/17 14:00 SXJ2772 (Rec: 01/03/17 14:30 [id number] ICU-C12) Document 01/03/17 17:58 SSO9596 (Rec: 01/03/17 17:59 [id number] ICU-C12) Document 01/03/17 22:00 [id number] (Rec: 01/04/17 00:04 FKD1301 ICU-C16) Document 01/04/17 13:58 [id number] (Rec: 01/04/17 13:58 [id number] ICU-C12) Document 01/04/17 22:00 [id number] (Rec: 01/04/17 22:53 [id number] MED-C14) Document 01/05/17 05:08 [id number] (Rec: 01/05/17 05:09 [id number] MEDL-C01) General Impression: Very pleasant woman sitting upright in bed, asking many questions about her disease and saying she will not remember anything I tell her in 5 minutes. Head: Symmetrical Eyes: No Scleral Icterus, PERRLA Ears/Nose/Mouth/Throat: Clear Oropharnyx Neck: No Thyroid Enlargement, Masses Cardiovascular: No Edema, - - regular w/ frequent premature beats, 3/6 low- pitched systolic murmur Respiratory: Symmetrical Chest Expansion and Respiratory Effort Abdominal: NL Sounds; No Tenderness; No Distention Extremities: No Edema Neurological: Alert and Oriented x 3 - Assessment Assessment: This patient has myeloproliferative malignancy with recurrent respiratory failure and qualifies for hospice services with a prognosis of less than six months. I spoke with her daughter, Chani, with whom she lives in [facility]) and described the hospice benefit and she is in agreement with home hospice servies for her mother through [facility]. Thanks you for the consultation. - Plan Consult Plan (MU): Hospice - Time On Unit Date of Evaluation: 01/05/17 Hospice Consult Time in: 10:25 Hospice Consult Time Out: 11:05 Hospice Consult Time Total: 40 > 50% of Time Spend In Counseling or Coordinating Care: Yes
[2017-01-06] MEDS: Levothyroxine TAB* 150 MCG TAB PO SCH (06:11)
[2017-01-06] MEDS: Apixaban* 5 MG TAB PO SCH (09:34)
[2017-01-06] MEDS: PARoxetine HCL TAB* 10 MG PO SCH (09:34)
[2017-01-06] MEDS: Aspirin EC Low Dose* 81 MG TAB.EC PO SCH (09:34)
[2017-01-06] MEDS: methylPREDNISolone SOD 40 MG* 1 ML VIAL IV SCH (09:34)
[2017-01-06 16:06] VITALS: BP 134/58
--- NOTE | 2017-01-06 16:13 | PN ---
Progress Note - Progress Note Date of Service: 01/06/17 SOAP: Subjective: []Doing well. Worked with PT and was able to go up and down stairs, walked fine. Breathing remains difficulty. No fevers, eating well. Comfortable and in good spirits. Albuterol/Ipratropium (Duoneb (Albuterol 2.5 Mg/Ipratropium 0.5 Mg)) 1 neb INH Q4H PRN PRN Reason: SOB/WHEEZING Apixaban (Eliquis*) 5 mg PO BID [facility] Last Admin: 01/06/17 09:34 Dose: 5 mg Aspirin (Aspirin Ec Low Dose*) 81 mg PO DAILY [facility] Last Admin: 01/06/17 09:34 Dose: 81 mg Levothyroxine Sodium (Synthroid Tab*) 150 mcg PO DAILY@0600 [facility] Last Admin: 01/06/17 06:11 Dose: 150 mcg Lorazepam (Ativan Inj*) 1 mg IV PUSH Q4H PRN PRN Reason: ANXIETY Last Admin: 01/04/17 23:37 Dose: 1 mg Methylprednisolone Sodium Succinate (Solu-Medrol 40 Mg) 40 mg IV BID [facility] Last Admin: 01/06/17 09:34 Dose: 40 mg Metoprolol Tartrate (Lopressor Iv*) 5 mg IV Q6H PRN PRN Reason: HEART RATE/PULSE Last Admin: 01/01/17 09:32 Dose: 5 mg Morphine Sulfate (Morphine Oral Concentrate*) 5 mg PO Q2H PRN PRN Reason: PAIN Paroxetine HCl (Paxil Tab*) 30 mg PO DAILY [facility] Last Admin: 01/06/17 09:34 Dose: 30 mg Objective: [] Vital Signs Temp Pulse Resp BP Pulse Ox 97.4 F 97 17 134/58 95 01/06/17 15:39 01/06/17 15:39 01/06/17 15:39 01/06/17 15:39 01/06/17 15:39 HEENT: Mucosa moist, no LAD CTA, no crackes and good air movement RRR s1s2 +BS NT, ND Ext w/o edema Assessment: 76 yo f w advanced myelofibrosis, afib, , and CHF with course complicated by likely pneumonitis thought secondary to jakafi with recurrent respiratory failure. She is currently improved on supplemental O2. She is unable to tolerate any therapy for her myeloprliferative disease. Discussed discharge home and risk of thrombosis and progressive anemia. Daughter will take care of her at home and plan enrollment into hospice next week. Plan: 1. Pneumonitis: Will plan steroid taper at home. Oxygen by [place]. 2. Continue Eliquis for a-fib 2.5 mg bid 3. ET/Myelofibrosis. ASA daily and will not check blood counts. 4. DNR and we will follow on hospice.
--- NOTE | 2017-01-07 12:45 | DS ---
DISCHARGE SUMMARY: DATE OF ADMISSION: 12/28/16 DATE OF DISCHARGE: 01/06/17 DISCHARGE DIAGNOSES: 1. Pneumonitis secondary to medication. 2. Myelofibrosis and central thrombocytosis. 3. Hypertension. 4. Aortic stenosis, status post valve. 5. Atrial fibrillation. 6. Refractory anemia. 7. Arthritis. 8. Dementia. HOSPITAL COURSE: This is the second admission over the past 6 weeks for shortness of breath. She came in on 12/28/16 after recent discharge for pneumonia. She has a longstanding essential thrombocytosis without evolution of myelofibrosis that was JAK2 positive. She was on Jakafi for several months due to all her her blood counts. She was admitted on 12/07/16 with infiltrate by chest x-ray and increasing shortness of breath. She was diagnosed with pneumonia, treated with antibiotics. During that admission, she developed refractory anemia, the hemoglobin down to between 6 and 7. She received 5 units of packed red blood cells. Etiology of the anemia was never clear but thought to be secondary to infection, marrow suppression from Jakafi, increase hemolysis through the valves in hyperdynamic state. Ultimately stabilized and after being discharged home followed up in clinic. At that time she had a platelet count of 1100 and she was restarted on Jakafi at a lower dose. She started at 5 mg p.o. b.i.d. On medications for one week and then re-presented with shortness of breath. CT scan showed a diffuse pneumonitis, which in retrospect was Jakafi induced pneumonitis, likely responsible for her initial admission. She was taken off the Jakafi and started on prednisone. Her breathing deteriorated and she was transferred into the intensive care unit on the . She had epistaxis that may have caused an overlying aspiration. She required significant respiratory support on the and and the decision was made to not escalate care, she became DNR and DNI. On conservative therapy, the patient significantly improved and back up to the floor on the . She is now doing much better. Oxygen saturation is in the 90s on 4 L nasal cannula. She got up and walked today and was able to do so by bringing the oxygen to 6 L. She has had some chest pressure with exertion, otherwise is feeling well. Her hemoglobin is 39.4 , white count 40,000, platelet count 1291. I discussed at length that she is not a candidate for additional therapy for her myelofibrosis and myeloproliferative disease. Expect progressive deterioration in her blood counts and she is at high risk for thrombosis. Goals on discharge will be quality of life and she will enrol in hospice in one week. DISCHARGE MEDICATIONS: 1. Duo-Neb inhaler q.4 p.r.n. 2. Eliquis 2.5 mg p.o. b.i.d. 3. Aspirin 81 mg a day. 4. Synthroid 150 mcg daily. 5. Paroxetine 30 mg p.o. daily. 6. Prednisone 40 mg p.o. daily for one week, then taper down by 10 mg per week until done. 7. Oxygen 4 L nasal cannula and then titrate p.r.n. We will contact her after discharge. Our plan at this time is for hospice. Family will call our office with any additional questions or concerns. [id number]/[facility] #: [id number] MTDD
== END 2017-01-06 17:45 | disposition hospice, home (50) | DRG 205 ==
LOC: ED 16:41 → MEDTELE 19:02 → ICU 01-01 06:38 → MED 01-04 16:17
PROVIDERS: ADMIT Hospitalist; ATTEND Internal Medicine Hematology & Oncology
PROC: 30233N1 Transfusion of Nonautologous Red Blood Cells into Peripheral Vein, Percutaneous Approach (ICD-10-PCS; principal; 2016-12-29)
DX: J70.4 Drug-induced interstitial lung disorders, unspecified (principal); I50.33 Acute on chronic diastolic (congestive) heart failure; J96.21 Acute and chronic respiratory failure with hypoxia; N17.9 Acute kidney failure, unspecified; I48.2 Chronic atrial fibrillation; D46.4 Refractory anemia, unspecified; D47.1 Chronic myeloproliferative disease; I48.92 Unspecified atrial flutter; F03.90 Unspecified dementia, unspecified severity, without behavioral disturbance, psychotic disturbance, mood disturbance, and anxiety; I11.0 Hypertensive heart disease with heart failure; M19.90 Unspecified osteoarthritis, unspecified site; Z96.641 Presence of right artificial hip joint; Z66 Do not resuscitate; E66.3 Overweight; D47.3 Essential (hemorrhagic) thrombocythemia; R74.8 Abnormal levels of other serum enzymes; F41.9 Anxiety disorder, unspecified; R04.0 Epistaxis; T50.995A Adverse effect of other drugs, medicaments and biological substances, initial encounter; Z95.2 Presence of prosthetic heart valve; Z86.73 Personal history of transient ischemic attack (TIA), and cerebral infarction without residual deficits; Z87.891 Personal history of nicotine dependence; Z68.29 Body mass index [BMI] 29.0-29.9, adult; Y92.009 Unspecified place in unspecified non-institutional (private) residence as the place of occurrence of the external cause
CPT/HCPCS: 36415; 71010; 71020; 71260; 80048; 80053; 82570; 83605; 83615; 83735; 83880; 84100; 84145; 84484; 85014; 85018; 85025; 85060; 86078; 86850; 86900; 86901; 86922; 87040; 87070; 87205; 87502; 87899; 93005; 94640; 94667; 94668; 94760; 99231; 99232; A9270-GY; J0456; J1650; J1940; J2060; J2270; J2405; J2543; J2920; J3490; J7512; P9040; Q9967